=== PATIENT | female | born 1985 | race American Indian/Alaskan Native ===

== ENCOUNTER 2021-02-19 20:44 | Inpatient (IN) | payer OTHER ==
--- NOTE | 2021-02-19 22:43 | Emergency Department Report ---
ED Shortness of Breath HPI - General Chief Complaint: Dyspnea/Respdistress Stated Complaint: SOB/HEADACHE/STOMACH PAIN Time Seen by Provider: 02/19/21 22:18 Source: patient Mode of arrival: Wheelchair Limitations: No Limitations - History of Present Illness Initial Comments: Chief complaint: Shortness of breath HPI: This is a 35-year-old female with history of severe obesity BMI 71 who presents with shortness of breath for the past week. She has shortness of breath with exertion and at rest. Worse when laying flat. She does not have any new leg swelling. However she normally has leg swelling when she sits down for long periods of time. Leg swelling resolves with elevation. Patient has had dry cough. She has abdominal bloating. She denies fever. She denies headache. She denies diarrhea. She denies vomiting. She denies loss of taste or smell. She works with several persons at work. She works in customer service. She has interactions with "the public". She lives with her parents and 2 sons. She did not receive a Covid vaccine as of yet. Prior surgical history includes x2, surgery at [facility] in 2013 for bowel obstruction, tonsillectomy Complaint: shortness of breath -: Gradual, week(s) (1 week) Severity: severe Consistency: constant Improves With: oxygen Worsens With: lying flat, exertion Known History Of: other (Severe obesity BMI 71, weight 172 kg) Associated Symptoms: cough, other (Abdominal bloating, dependent leg edema) Treatments Prior to Arrival: none - Related Data Allergies Allergy/AdvReac Type Severity Reaction Status Date / Time No Known Allergies Allergy Unverified 02/19/21 22:10 ED Review of Systems ROS: Stated complaint: SOB/HEADACHE/STOMACH PAIN Other details as noted in HPI Comment: All other systems reviewed and negative Constitutional: denies: fever, malaise ENT: denies: throat pain Respiratory: cough, shortness of breath Cardiovascular: denies: chest pain Gastrointestinal: denies: nausea, vomiting, diarrhea Neurological: denies: headache ED Past Medical Hx - Past Medical History Previous Medical History?: No - Surgical History Past Surgical History?: Yes Additional Surgical History: 2 c-sections, tonsillectomy,adnoidectomy - Social History Smoking Status: Never Smoker Substance Use Type: None ED Physical Exam - General Limitations: No Limitations General appearance: alert, other (Patient appears out of breath while attempting to talk in semisupine position head of bed 45 degrees) - Head Head exam: Present: atraumatic, normocephalic - Eye Eye exam: Present: normal appearance - ENT ENT exam: Present: mucous membranes moist - Neck Neck exam: Present: normal inspection, full ROM - Respiratory Respiratory exam: Present: decreased breath sounds. Absent: wheezes, rales, rhonchi, accessory muscle use - Cardiovascular Cardiovascular Exam: Present: regular rate, normal rhythm, normal heart sounds. Absent: systolic murmur, diastolic murmur, rubs, gallop - GI/Abdominal GI/Abdominal exam: Present: soft, normal bowel sounds. Absent: distended, tenderness, guarding, rebound - Extremities Exam Extremities exam: Present: pedal edema - Neurological Exam Neurological exam: Present: alert, oriented X3 - Psychiatric Psychiatric exam: Present: normal affect, normal mood - Skin Skin exam: Present: warm, dry, intact, normal color. Absent: rash ED Course Vital Signs 02/19/21 02/20/21 21:53 01:16 Temperature 98.5 F Pulse Rate 112 H 111 H Respiratory 30 H 20 Rate Blood Pressure 208/117 Blood Pressure 197/130 [Right] O2 Sat by Pulse 89 98 Oximetry - EJ/Peripheral Line Arm L Time Out Performed: Yes Indications: nurses unable to establis Size: 20 Dressing Placed: Tegaderm Patient Tolerated Procedure: well Additional Comments: I was informed by nursing staff that venous access not obtainable. I was able to insert 20-gauge angiographic that the left wrist. ED Medical Decision Making - Lab Data Result diagrams: 02/19/21 22:19 02/19/21 22:26 - EKG Data -: EKG Interpreted by Me EKG shows normal: sinus rhythm, intervals Rate: tachycardia - EKG Data Interpretation: nonspecific ST-T wave albin 02/20/21 01:30 EKG obtained 0123 EKG interpreted by me Sinus tachycardia rate 110 bpm rightward axis diffuse T wave inversion - Radiology Data Radiology results: report reviewed, image reviewed Findings Reporting MD: Robert Florez Dictation Time: February 20, 2021 00:18 Clinical Director: Not available Salesforce Specialist Date: CHEST 1 VIEW INDICATION: chest pain. COMPARISON: None. FINDINGS: Support devices: None. Heart: Mildly enlarged. Lungs/Pleura: The exam is underpenetrated due to body habitus. This limits evaluation of the lower lungs. IMPRESSION: 1. Limited study due to underpenetration secondary to patient body habitus. Accounting for this, no acute pulmonary or pleural findings. There appears to be mild cardiomegaly - Medical Decision Making Acute respiratory failure hypoxia with severely elevated blood pressure and elevated BNP. First consideration acute heart failure: Chest radiograph poor quality due to inability to penetrate soft tissue. I personally reviewed chest radiograph. I do detect pulmonary edema pattern. Patient treated with IV furosemide and blood pressure control occluding beta-blockade and Nitropaste. COVID-19 with pneumonia also consideration. Contact droplet precautions in place. D-dimer slightly elevated: Unable to rule out pulmonary embolism without CT angiogram or nuclear medicine perfusion scan. Patient does not have venous access available for CT angiogram. Her weight exceeds the limitation of the nuclear medicine camera. I spoke directly with nuclear instructor in person Patient is admitted to the hospital service in fair condition. She is requiring 4 L nasal cannula for appropriate oxygenation. Critical care attestation.: If time is entered above; I have spent that time in minutes in the direct care of this critically ill patient, excluding procedure time. ED Disposition Clinical Impression: Acute heart failure, Acute respiratory failure with hypoxia, Suspected COVID-19 virus infection, Severe obesity Disposition: 09 OP ADMIT IP TO THIS HOSP Is pt being admited?: Yes Does the pt Need Aspirin: No Condition: Fair Referrals: PRIMARY CARE, [Primary Care Provider] - 3-5 Days
[2021-02-19 23:01] LABS: Basophils # (Auto) 0.1 K/mm3 (0.0-0.1); Basophils % (Auto) 1.5 % (0.0-1.8); Eosinophils # (Auto) 0.2 K/mm3 (0.0-0.4); Eosinophils % (Auto) 1.7 % (0.0-4.3); Lymphocytes # (Auto) 1.6 K/mm3 (1.2-5.4); Lymphocytes % (Auto) 16.4 % (13.4-35.0); Mean Corpuscular HGB Conc 28 % (30-34); Monocytes # (Auto) 1.1 K/mm3 (0.0-0.8); Monocytes % (Auto) 11.5 % (0.0-7.3); Platelet Count 364 K/mm3 (140-440); Red Blood Count 5.53 M/mm3 (3.65-5.03)
[2021-02-19 23:03] LABS: Hemoglobin 9.6 gm/dl (10.1-14.3)
[2021-02-19 23:04] LABS: Mean Corpuscular Volume 62 fl (79-97); Red Cell Distribution Width 21.4 % (13.2-15.2)
[2021-02-19 23:11] LABS: Alanine Aminotransferase 23 units/L (7-56); BUN/Creatinine Ratio 21; Blood Urea Nitrogen 17 mg/dL (7-17); Calcium 9.1 mg/dL (8.4-10.2); Hemolysis Index 3
[2021-02-20] MEDS ORDERED: FUROSEMIDE 40 MG/4 ML INJ IV ONE (01:13)
[2021-02-20] MEDS ORDERED: NITROGLYCERIN 2% OINT 1 GM TP ONE (01:14)
--- NOTE | 2021-02-20 01:23 | XRay Report ---
CHEST 1 VIEW INDICATION: chest pain. COMPARISON: None. FINDINGS: Support devices: None. Heart: Mildly enlarged. Lungs/Pleura: The exam is underpenetrated due to body habitus. This limits evaluation of the lower nitin ngs. IMPRESSION: 1. Limited study due to underpenetration secondary to patient body habitus. Accounting for this, no a cute pulmonary or pleural findings. There appears to be mild cardiomegaly. Signer Name: Robert Florez MD Signed: 02/20/2021 1:18 AM Workstation Name: [id number]
[2021-02-20 01:27] LABS: C-Reactive Protein 1.2 mg/dL (0.00-1.30)
[2021-02-20] MEDS ORDERED: ENOXAPARIN 100 MG/1 ML INJ SUB-Q ONE (01:41)
[2021-02-20] MEDS ORDERED: MORPHINE 2 MG/1 ML INJ IV PRN (02:04)
[2021-02-20] MEDS ORDERED: MAGNESIUM HYDROXIDE (MOM) ORAL LIQD UDC PO PRN (02:04)
[2021-02-20] MEDS ORDERED: ONDANSETRON 4 MG/2 ML INJ IV PRN (02:04)
[2021-02-20] MEDS: ACETAMINOPHEN 325 MG TAB PO PRN ×3 (02:42→17:49)
[2021-02-20] MEDS ORDERED: IBUPROFEN 600 MG TAB PO ONE (03:18)
[2021-02-20 05:35] LABS: Bacteria,Urine 1+ /HPF (Negative); Bilirubin,Urine NEG (Negative); Blood,Urine NEG (Negative); Color,Urine Yellow (Yellow); Urobilinogen,Urine < 2.0 mg/dL (<2.0)
[2021-02-20 05:37] LABS: HCG Qualitative,Urine Negative (Negative)
[2021-02-20] MEDS ORDERED: FUROSEMIDE 40 MG/4 ML INJ IV SCH (06:00)
--- NOTE | 2021-02-20 07:27 | History and Physical Report ---
History of Present Illness Date of examination: 02/20/21 Date of admission: 02/20/21 01:13 Chief complaint: Shortness of breath History of present illness: 35-year-old -Citizen Of [place] female with no significant past medical history except morbid obesity with a BMI of 79 presenting to the emergency room today complaining of shortness of breath which has been ongoing for about 1 week. Shortness of breath is said to be worse on exertion and while lying down flat. She has been having some lower extremity swelling. She denies any chest pain, no fever or chills, no headache or dizziness, no diaphoresis. Patient denies any nausea vomiting, no abdominal pain, no hematuria or dysuria. She has had some cough which is nonproductive. 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 She denies any recent travel. Denies any contact with anyone with COVID-19. Upon arrival in the emergency room today she was hypoxic with oxygen saturation of about 89% upon arrival in the emergency room. Work-up in the emergency room reveals elevated BNP, elevated D-dimer. Patient was too large for the scan machine for VQ scan and there was no adequate access to be scheduled for CT angiogram. Chest x-ray was significant for possible pulmonary edema. Patient has been admitted with respiratory failure, and hypertensive emergency and new onset CHF. She will also be ruled out for COVID-19. Past History Past Medical History: No medical history Past Surgical History: (X2), Other (Tonsillectomy, adenoidectomy) Social history: no significant social history Family history: no significant family history Medications and Allergies Allergies Allergy/AdvReac Type Severity Reaction Status Date / Time No Known Allergies Allergy Unverified 02/19/21 22:10 Active Meds: Active Medications Acetaminophen (Acetaminophen 325 Mg Tab) 650 mg PO Q4H PRN PRN Reason: Pain MILD(1-3)/Fever >100.5/LOCO Last Admin: 02/20/21 02:42 Dose: 650 mg Documented by: Furosemide (Furosemide 40 Mg/4 Ml Inj) 40 mg IV BID@0600,1800 VERONICA Magnesium Hydroxide (Magnesium Hydroxide (Mom) Oral Liqd Udc) 30 ml PO Q4H PRN PRN Reason: Constipation Morphine Sulfate (Morphine 2 Mg/1 Ml Inj) 2 mg IV Q5MIN PRN PRN Reason: Chest Pain unrelieved by NTG Ondansetron HCl (Ondansetron 4 Mg/2 Ml Inj) 4 mg IV Q8H PRN PRN Reason: Nausea And Vomiting Sodium Chloride (Sodium Chloride 0.9% 10 Ml Flush Syringe) 10 ml IV BID VERONICA Sodium Chloride (Sodium Chloride 0.9% 10 Ml Flush Syringe) 10 ml IV PRN PRN PRN Reason: LINE FLUSH Review of Systems Constitutional: no fever, no chills Ears, nose, mouth and throat: no nasal congestion, no sore throat Cardiovascular: no chest pain, no palpitations Respiratory: shortness of breath, no cough Gastrointestinal: no abdominal pain, no nausea, no vomiting, no diarrhea Genitourinary Female: no pelvic pain, no flank pain, no hematuria Musculoskeletal: no neck pain, no low back pain Integumentary: no rash, no pruritis Neurological: no headaches, no confusion Psychiatric: no anxiety, no depression, no confusion Exam - Constitutional Vitals: Temp Pulse Resp BP Pulse Ox 98.5 F 92 H 20 109/64 97 02/20/21 05:34 02/20/21 05:34 02/20/21 05:34 02/20/21 05:34 02/20/21 05:34 General appearance: Present: mild distress, obese - EENT Eyes: Present: PERRL, EOM intact. Absent: scleral icterus ENT: hearing intact, clear oral mucosa, dentition normal - Neck Neck: Present: supple, normal ROM - Respiratory Respiratory effort: normal Respiratory: bilateral: diminished - Cardiovascular Rhythm: regular Heart Sounds: Present: S1 & S2. Absent: systolic murmur, diastolic murmur - Extremities Extremities: no ischemia, pulses intact, pulses symmetrical, normal temperature, normal color, Full ROM Extremity abnormal: edema (1+ bilateral ankle edema) Peripheral Pulses: within normal limits - Abdominal General gastrointestinal: Present: soft, non-tender, non-distended, normal bowel sounds. Absent: mass - Integumentary Integumentary: Present: clear, warm, dry. Absent: rash - Musculoskeletal Musculoskeletal: strength equal bilaterally - Psychiatric Psychiatric: appropriate mood/affect, intact judgment & insight, memory intact, cooperative - Neurologic Neurologic: CNII-XII intact, no focal deficits, moves all extremities HEART Score - HEART Score Troponin: Troponin T 0.011 ng/mL (0.00-0.029) 02/19/21 22: Results - Labs CBC & Chem 7: 02/19/21 22:19 02/19/21 22: Labs: Abnormal lab results 02/19/21 02/19/21 02/19/21 Range/Units 22:19 22: 22: RBC 5.53 H (3.65-5.03) M/mm3 Hgb 9.6 L (10.1-14.3) gm/dl MCV 62 L (79-97) fl MCH 17 L (28-32) pg MCHC 28 L (30-34) % RDW 21.4 H (13.2-15.2) % [place] % (Auto) 11.5 H (0.0-7.3) % [place] # (Auto) 1.1 H (0.0-0.8) K/mm3 D-Dimer (0-234) ng/mlDDU Potassium 5.1 H (3.6-5.0) mmol/L Carbon Dioxide 35 H (22-30) mmol/L Glucose 110 H (65-100) mg/dL Lactate Dehydrogenase (91-180) units/L NT-Pro-B Natriuret Pep 2354 H (0-450) pg/mL 02/19/21 02/19/21 Range/Units 22:26 22:26 RBC (3.65-5.03) M/mm3 Hgb (10.1-14.3) gm/dl MCV (79-97) fl MCH (28-32) pg MCHC (30-34) % RDW (13.2-15.2) % [place] % (Auto) (0.0-7.3) % [place] # (Auto) (0.0-0.8) K/mm3 D-Dimer 277.95 H (0-234) ng/mlDDU Potassium (3.6-5.0) mmol/L Carbon Dioxide (22-30) mmol/L Glucose 111 H (65-100) mg/dL Lactate Dehydrogenase 343 H (91-180) units/L NT-Pro-B Natriuret Pep (0-450) pg/mL Assessment and Plan - Patient Problems (1) Acute heart failure Current Visit: Yes Status: Acute Plan to address problem: Patient admitted and placed on telemetry. We will place patient on diuretics. Will monitor inputs and outputs and also monitor daily weight. Patient will be scheduled for echocardiogram. We will place consult to cardiology for evaluation. (2) Acute respiratory failure with hypoxia Current Visit: Yes Status: Acute Plan to address problem: Possibly secondary to new onset CHF. We will keep oxygen saturation greater equal to 92%. (3) Severe obesity Current Visit: Yes Status: Acute Plan to address problem: Lifestyle modification encouraged. Dietary consult placed. (4) Suspected COVID-19 virus infection Current Visit: Yes Status: Acute Plan to address problem: Will await COVID-19 testing. Consult placed to infectious disease for evaluation. (5) DVT prophylaxis Current Visit: Yes Status: Acute Plan to address problem: Patient placed on subcutaneous Lovenox. (6) Full code status Current Visit: Yes Status: Acute Plan to address problem: Patient is a full code.
--- NOTE | 2021-02-20 07:38 | Event Note ---
This is a 35 year old female with morbid obesity with a BMI of 79 whow as admitted for complaints of shortness of breath which has been ongoing for about 1 week, worse on exertion and while lying down flat, and lower extremity swelling. She was admitted for possible new onset CHF and as a COVID 19 PUI. Code met called at ~0715 for hypoxia, reportedly she was on 3L NC and SPO2 was 85% and she was confused to current events. She was place on NRB 100% and her SpO2 increased to 100%. At the time my exam I was able to barely her air movement on auscultation however the patient SPO2 was 100%. Patient was alert and oriented to self, location, current events but stated that she did not have a bowel movement recently however per the nursing report she did have bowel movement on admission. Also per the nurse she received 40mg of lasix and has voided since. Patient was weaned to 50% Venturi mask. Stat ABG and CXR was ordered along with 3 times daily albuterol nebulizers and one-time dose of dexamethasone 6mg. Patient vital signs of the time my arrival were blood pressure of 167/108 with a heart rate of 103 and SPO2 100% on a nonrebreather 100%. Attending physician informed who will follow up with the results of the test ordered. Dr. Kimball was also updated of current events.
[2021-02-20] MEDS ORDERED: ALBUTEROL 2.5 MG/3 ML NEBU IH PRN (07:39)
[2021-02-20] MEDS ORDERED: dexAMETHasone 4 MG/ML VIAL IV ONE (07:50)
--- NOTE | 2021-02-20 08:50 | XRay Report ---
CHEST 1 VIEW 02/20/2021 8:15 AM INDICATION / CLINICAL INFORMATION: hypoxia. COMPARISON: 02/20/2021 FINDINGS: SUPPORT DEVICES: None. HEART / MEDIASTINUM: Stable. LUNGS / PLEURA: Mild hazy opacification in the right lower lung. Findings are obscured by artifact fr om generous overlying soft tissue. No pneumothorax. ADDITIONAL FINDINGS: No significant additional findings. IMPRESSION: 1. Mild hazy opacification in the right lower lung could represent aspiration or early/developing pne umonia. Recommend clinical correlation and continued follow-up/evaluation, as warranted. Signer Name: Zaheer Licea MD Signed: 02/20/2021 8:46 AM Workstation Name: [id number]
[2021-02-20] MEDS: FUROSEMIDE 40 MG/4 ML INJ IV SCH ×2 (10:10→20:25)
--- NOTE | 2021-02-20 11:02 | Consultation ---
History of Present Illness - Reason for Consult Consult date: 02/20/21 - History of Present Illness 35-year-old female past medical history morbid obesity presented to the hospital complaining of shortness of breath. Severe approximately 1 week prior to admission and is worsening since onset. She also notes it is worse with exertion and lying flat. She complains of associated lower extremity swelling. 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 She was found to be hypoxic on presentation. Afebrile since admission with a white count of 9.7. Covid test pending. Normal renal function. Pending procalcitonin. Normal inflammatory markers. Currently on rebreather. Imaging personally reviewed: Chest x-ray: Mild hazy opacification of the right lower lung. Review of systems: Deferred to reduce to the risk of transmission of COVID-19 Past History Past Medical History: No medical history Past Surgical History: (X2), Other (Tonsillectomy, adenoidectomy) Social history: no significant social history Family history: no significant family history Medications and Allergies Allergies Allergy/AdvReac Type Severity Reaction Status Date / Time No Known Allergies Allergy Unverified 02/19/21 22:10 Active Meds: Active Medications Acetaminophen (Acetaminophen 325 Mg Tab) 650 mg PO Q4H PRN PRN Reason: Pain MILD(1-3)/Fever >100.5/LOCO Last Admin: 02/20/21 09:59 Dose: 650 mg Documented by: Albuterol (Albuterol 2.5 Mg/3 Ml Nebu) 2.5 mg IH TIDRT PRN PRN Reason: Shortness Of Breath Furosemide (Furosemide 40 Mg/4 Ml Inj) 40 mg IV Q12HR@0800,2000 [facility] Last Admin: 02/20/21 10:10 Dose: 40 mg Documented by: Magnesium Hydroxide (Magnesium Hydroxide (Mom) Oral Liqd Udc) 30 ml PO Q4H PRN PRN Reason: Constipation Morphine Sulfate (Morphine 2 Mg/1 Ml Inj) 2 mg IV Q5MIN PRN PRN Reason: Chest Pain unrelieved by NTG Ondansetron HCl (Ondansetron 4 Mg/2 Ml Inj) 4 mg IV Q8H PRN PRN Reason: Nausea And Vomiting Sodium Chloride (Sodium Chloride 0.9% 10 Ml Flush Syringe) 10 ml IV BID [facility] Last Admin: 02/20/21 10:10 Dose: 10 ml Documented by: Sodium Chloride (Sodium Chloride 0.9% 10 Ml Flush Syringe) 10 ml IV PRN PRN PRN Reason: LINE FLUSH Physical Examination - Physical Exam Narrative exam: Physical exam deferred to reduce risk of transmission of COVID-19. Please refer to primary team's note. - Constitutional Vitals: Vital Signs Temp Pulse Resp BP Pulse Ox 97.5 F L 98 H 20 129/66 97 02/20/21 10:11 02/20/21 10:11 02/20/21 10:11 02/20/21 10:11 02/20/21 10:11 Temperature -Last 24 Hours Temperature 97.5 F Temperature 98.5 F Temperature 98.5 F Results - Labs CBC & Chem 7: 02/19/21 22:19 02/19/21 22:26 Labs: Abnormal lab results 02/19/21 02/19/21 02/19/21 Range/Units 22:19 22:19 22:26 RBC 5.53 H (3.65-5.03) M/mm3 Hgb 9.6 L (10.1-14.3) gm/dl MCV 62 L (79-97) fl MCH 17 L (28-32) pg MCHC 28 L (30-34) % RDW 21.4 H (13.2-15.2) % [place] % (Auto) 11.5 H (0.0-7.3) % [place] # (Auto) 1.1 H (0.0-0.8) K/mm3 D-Dimer (0-234) ng/mlDDU Potassium 5.1 H (3.6-5.0) mmol/L Carbon Dioxide 35 H (22-30) mmol/L Glucose 110 H (65-100) mg/dL POC Glucose (70-105) mg/dL Lactate Dehydrogenase (91-180) units/L NT-Pro-B Natriuret Pep 2354 H (0-450) pg/mL 02/19/21 02/19/21 02/20/21 Range/Units 22:26 22:26 07:12 RBC (3.65-5.03) M/mm3 Hgb (10.1-14.3) gm/dl MCV (79-97) fl MCH (28-32) pg MCHC (30-34) % RDW (13.2-15.2) % [place] % (Auto) (0.0-7.3) % [place] # (Auto) (0.0-0.8) K/mm3 D-Dimer 277.95 H (0-234) ng/mlDDU Potassium (3.6-5.0) mmol/L Carbon Dioxide (22-30) mmol/L Glucose 111 H (65-100) mg/dL POC Glucose 117 H (70-105) mg/dL Lactate Dehydrogenase 343 H (91-180) units/L NT-Pro-B Natriuret Pep (0-450) pg/mL Assessment and Plan Cultures: Covid PCR pending A/P: 35-year-old female past medical history morbid obesity presented with shortness of breath. #Covid PUI: Possible pneumonia in the right lung. Pending PCR. #Acute CHF: with extremity and pulmonary edema. Diuretics per primary #Morbid obesity Recs: -Follow up COVID PCR. If positive start dexamethasone and remdesivir. -Follow up procalcitonin; if positive start ceftriaxone 2g q24h and azithromycin 500mg q24h Thank you for the consult, we will continue to follow. Dr. Ovalles covering this weekend. Lasha Lowry MD [facility] O: [phone] F: [phone]
--- NOTE | 2021-02-20 12:14 | Consultation ---
History of Present Illness Consult date: 02/20/21 Requesting physician: STEPHANIE SANTOS Consult reason: congestive heart failure History of present illness: This pt is a 35 year old female with a significant hx of morbid obesity (BMI 79). Pt is previously unknown to our practice. [facility]o [facility]B, nonproductive cough, orthopnea and BLE edema x 1 week. Pt in acute respiratory distress sPO2 89 on arrival to ER. SOB is worse with exertion and supine positio n. Pt denies CP, weakness, dizziness, ABD pain, N/V/D, recent illness or exposures. BNP and Ddimer are noted to be elevated on admission. Pt is a Covid 19 PUI. CXR reviewed: Maral ARNDT. Past History Past Medical History: No medical history Past Surgical History: (X2), Other (Tonsillectomy, adenoidectomy) Social history: no significant social history Family history: no significant family history Medications and Allergies Allergies Allergy/AdvReac Type Severity Reaction Status Date / Time No Known Allergies Allergy Unverified 02/19/21 22:10 Active Meds: Active Medications Acetaminophen (Acetaminophen 325 Mg Tab) 650 mg PO Q4H PRN PRN Reason: Pain MILD(1-3)/Fever >100.5/LOCO Last Admin: 02/20/21 09:59 Dose: 650 mg Documented by: Albuterol (Albuterol 2.5 Mg/3 Ml Nebu) 2.5 mg IH TIDRT PRN PRN Reason: Shortness Of Breath Furosemide (Furosemide 40 Mg/4 Ml Inj) 40 mg IV Q12HR@0800,2000 [facility] Last Admin: 02/20/21 10:10 Dose: 40 mg Documented by: Magnesium Hydroxide (Magnesium Hydroxide (Mom) Oral Liqd Udc) 30 ml PO Q4H PRN PRN Reason: Constipation Morphine Sulfate (Morphine 2 Mg/1 Ml Inj) 2 mg IV Q5MIN PRN PRN Reason: Chest Pain unrelieved by NTG Ondansetron HCl (Ondansetron 4 Mg/2 Ml Inj) 4 mg IV Q8H PRN PRN Reason: Nausea And Vomiting Sodium Chloride (Sodium Chloride 0.9% 10 Ml Flush Syringe) 10 ml IV BID [facility] Last Admin: 02/20/21 10:10 Dose: 10 ml Documented by: Sodium Chloride (Sodium Chloride 0.9% 10 Ml Flush Syringe) 10 ml IV PRN PRN PRN Reason: LINE FLUSH Review of Systems Constitutional: no weight loss, no weight gain, no fever, no chills, no sweats Ears, nose, mouth and throat: no ear pain, no ear discharge, no nose pain, no nasal congestion, no nasal discharge Cardiovascular: orthopnea, edema, shortness of breath, dyspnea on exertion, no chest pain, no palpitations, no rapid/irregular heart beat, no syncope, no lightheadedness Respiratory: cough, shortness of breath, dyspnea on exertion, no cough with sputum, no hemoptysis Gastrointestinal: no abdominal pain, no nausea, no vomiting, no diarrhea Genitourinary Female: no pelvic pain, no flank pain Musculoskeletal: no neck stiffness, no neck pain, no shooting arm pain, no arm numbness/tingling, no low back pain, no shooting leg pain Integumentary: no rash, no pruritis, no redness, no sores, no wounds Neurological: no head injury, no paralysis, no weakness, no parathesias, no numbness, no tingling, no seizures, no syncope Psychiatric: no anxiety Endocrine: no cold intolerance, no heat intolerance Hematologic/Lymphatic: no easy bruising, no easy bleeding Allergic/Immunologic: no urticaria Physical Examination Last Vital Signs Temp 97.5 F L 02/20/21 10:11 Pulse 98 H 02/20/21 10:11 Resp 20 02/20/21 10:11 BP 129/66 02/20/21 10:11 Pulse Ox 97 02/20/21 10:11 General appearance: no acute distress HEENT: Positive: PERRL, Normocephaly, Mucus Membranes Moist Neck: Positive: neck supple, trachea midline Cardiac: Positive: Reg Rate and Rhythm, S1/S2 Lungs: Positive: Decreased Breath Sounds Neuro: Positive: Grossly Intact Abdomen: Positive: Unremarkable, Soft Skin: Negative: Rash, Wound Musculoskeletal: No Pain Extremities: Present: upper extr. pulses, lower extr. pulses, +2 Edema Results 02/19/21 22:19 02/19/21 22:26 Cardiac Enzymes 02/19/21 02/19/21 Range/Units 22:19 22:26 AST 21 (5-40) units/L Lactate Dehydrogenase 343 H (91-180) units/L CBC 02/19/21 Range/Units 22:19 WBC 9.7 (4.5-11.0) K/mm3 RBC 5.53 H (3.65-5.03) M/mm3 Hgb 9.6 L (10.1-14.3) gm/dl Hct 34.0 (30.3-42.9) % Plt Count 364 (140-440) K/mm3 Lymph # (Auto) 1.6 (1.2-5.4) K/mm3 [place] # (Auto) 1.1 H (0.0-0.8) K/mm3 Eos # (Auto) 0.2 (0.0-0.4) K/mm3 Baso # (Auto) 0.1 (0.0-0.1) K/mm3 Comprehensive Metabolic Panel 02/19/21 02/19/21 Range/Units 22:19 22:26 Sodium 143 (137-145) mmol/L Potassium 5.1 H (3.6-5.0) mmol/L Chloride 100.6 (98-107) mmol/L Carbon Dioxide 35 H (22-30) mmol/L BUN 17 (7-17) mg/dL Creatinine 0.8 (0.6-1.2) mg/dL Glucose 110 H 111 H (65-100) mg/dL Calcium 9.1 (8.4-10.2) mg/dL AST 21 (5-40) units/L ALT 23 (7-56) units/L Alkaline Phosphatase 79 (35-129) units/L Total Protein 6.9 (6.3-8.2) g/dL Albumin 4.0 (3.9-5) g/dL - Imaging and Cardiology Echo: pending EKG: report reviewed, image reviewed EKG interpretations - Telemetry EKG Rhythm: Sinus Rhythm - EKG Sinus rhythms and dysrhythmias: sinus tachycardia Assessment and Plan This pt is a 35 year old female with a significant hx of morbid obesity (BMI 79). Pt is previously unknown to our practice. [facility]/o [facility]B, nonproductive cough, orthopnea and BLE edema x 1 week. Pt in acute respiratory distress sPO2 89 on arrival to ER. SOB is worse with exertion and supine position. Pt denies CP, weakness, dizziness, ABD pain, N/V/D, recent illness or exposures. BNP and Ddimer are noted to be elevated on admission. Pt is a Covid 19 PUI. CXR reviewed: Maral MA (02/20/2021) Tele reviewed: SR 100. 12 Lead reviewed: ST 110 no STEMI. Troponin is negative x 1. Repeat troponin. Ddimer noted to be mildly elevated on admission. Pt cannot undergo CTA or VQ scan dues to body habitus and table weight limits. Further assessment per primary team. Echo pending. Code Met at 7:15am this morning: pt found sPO2 85% and confused to events when roused. Suspect STEPHEN. Pt may benefit from CPAP Therapy. CPAP QHS ordered. Agree with IV duiresis. Continue Lasix 40mg IV BID. Strict I/Os. Repeat BMP in am. Optimize HR and BP. Initiate Coreg 6.25 PO BID. Further recs pending echo results. Will follow. This pt was seen in conjunction with Dr Ballard who agrees with this assessment and plan of care. - Patient Problems (1) Acute respiratory failure with hypoxia Current Visit: Yes Status: Acute (2) Acute heart failure Current Visit: Yes Status: Acute (3) Suspected COVID-19 virus infection Current Visit: Yes Status: Acute (4) STEPHEN (obstructive sleep apnea) Current Visit: Yes Status: Chronic (5) Severe obesity Current Visit: Yes Status: Chronic
--- NOTE | 2021-02-20 12:37 | Consultation ---
History of Present Illness Consult date: 02/20/21 Requesting physician: STEPHANIE SANTOS Reason for consult: hypoxemia History of present illness: 35 y/o morbidly obese female admitted with shortness of breath and hypoxemia. Found to be 89% on ROOM air. Admitted as COVID PUI and possible new onset CHF. Had code met called this am for worsening hypoxemia. Past History Past Medical History: No medical history Past Surgical History: (X2), Other (Tonsillectomy, adenoidectomy) Social history: no significant social history Family history: no significant family history Medications and Allergies Allergies Allergy/AdvReac Type Severity Reaction Status Date / Time No Known Allergies Allergy Unverified 02/19/21 22:10 Active Meds: Active Medications Acetaminophen (Acetaminophen 325 Mg Tab) 650 mg PO Q4H PRN PRN Reason: Pain MILD(1-3)/Fever >100.5/LOCO Last Admin: 02/20/21 09:59 Dose: 650 mg Documented by: Albuterol (Albuterol 2.5 Mg/3 Ml Nebu) 2.5 mg IH TIDRT PRN PRN Reason: Shortness Of Breath Carvedilol (Carvedilol 6.25 Mg Tab) 6.25 mg PO BID [facility] Furosemide (Furosemide 40 Mg/4 Ml Inj) 40 mg IV Q12HR@0800,2000 [facility] Last Admin: 02/20/21 10:10 Dose: 40 mg Documented by: Magnesium Hydroxide (Magnesium Hydroxide (Mom) Oral Liqd Udc) 30 ml PO Q4H PRN PRN Reason: Constipation Morphine Sulfate (Morphine 2 Mg/1 Ml Inj) 2 mg IV Q5MIN PRN PRN Reason: Chest Pain unrelieved by NTG Ondansetron HCl (Ondansetron 4 Mg/2 Ml Inj) 4 mg IV Q8H PRN PRN Reason: Nausea And Vomiting Sodium Chloride (Sodium Chloride 0.9% 10 Ml Flush Syringe) 10 ml IV BID [facility] Last Admin: 02/20/21 10:10 Dose: 10 ml Documented by: Sodium Chloride (Sodium Chloride 0.9% 10 Ml Flush Syringe) 10 ml IV PRN PRN PRN Reason: LINE FLUSH Physical Examination Vital signs: Vital Signs Temp Pulse Resp BP Pulse Ox 98.5 F 112 H 30 H 208/117 89 02/19/21 21:53 02/19/21 21:53 02/19/21 21:53 02/19/21 21:53 02/19/21 21:53 Results - Laboratory Findings CBC and BMP: 02/19/21 22:19 02/19/21 22:26 PT/INR, D-dimer D-Dimer 277.95 ng/mlDDU (0-234) H 02/19/21 22:26 Abnormal lab findings: Abnormal Labs 02/19/21 02/19/21 02/19/21 22:19 22:19 22:26 RBC 5.53 H Hgb 9.6 L MCV 62 L MCH 17 L MCHC 28 L RDW 21.4 H Luce % (Auto) 11.5 H Luce # (Auto) 1.1 H D-Dimer Potassium 5.1 H Carbon Dioxide 35 H Glucose 110 H POC Glucose Lactate Dehydrogenase NT-Pro-B Natriuret Pep 2354 H 02/19/21 02/19/21 02/20/21 22:26 22:26 07:12 RBC Hgb MCV MCH MCHC RDW Luce % (Auto) Luce # (Auto) D-Dimer 277.95 H Potassium Carbon Dioxide Glucose 111 H POC Glucose 117 H Lactate Dehydrogenase 343 H NT-Pro-B Natriuret Pep - Diagnostic Findings Chest x-ray: image reviewed Assessment and Plan 35 y/o female with hypoxemia, concern for CHF and PUI for COVID 1. Agree with diuresis 2. Likely has STEPHEN and OHS, will order bipap QHS and titrate to comfort and sat >88% 3. Too large for CT to rule out PE. If doesn't improve with diuretics, may need empiric anticoagulation. Could consider echo but doubt windows will be helpful. 4. Very very guarded prognosis
--- NOTE | 2021-02-20 17:15 | Electrocardiograph Report ---
[facility] Test Date: 2021-02-20 Test Time: 01:23:25 Pat Name: LSIA RITCHIE Department: Room: A358 1 Gender: F [employer]: ADRIEN : 1985 Requested By: BART VASQUEZ Order Number: [id number] Reading MD: Melyssa Rios Measurements Intervals [place] Rate: 109 P: 67 NE: 137 QRS: 113 QRSD: 79 T: -55 QT: 345 QTc: 464 Interpretive Statements Sinus tachycardia Right axis deviation versus lead malposition Probable RVH w/ secondary repol abnormality Nonspecific T abnormalities, lateral leads No previous ECG available for comparison Electronically Signed On 02-20-2021 17:14:52 EDT by Melyssa Rios
[2021-02-20] MEDS ORDERED: hydrALAZINE 20 MG/1 ML INJ IV ONE (17:25)
--- NOTE | 2021-02-20 18:24 | Progress Note ---
Assessment and Plan Assessment and Plan - Patient Problems (1) Acute heart failure Current Visit: Yes Status: Acute Plan to address problem: EF 55 to 60 percent Cont Diuresis SOB sec to Hypoventilation (2) Acute respiratory failure with hypoxia Current Visit: Yes Status: Acute Plan to address problem: Hyoiventilation sec to Morbid obesity Pickwickian syndrome STEPHEN OHS Hypercarbia initially (3) Severe obesity Current Visit: Yes Status: Acute Plan to address problem: Lifestyle modification encouraged. Dietary consult placed. Bariatric surgery as outpatient and follow up with Dr Merino suggested Patient to consider (4) Suspected COVID-19 virus infection Current Visit: Yes Status: Acute Plan to address problem: Covid negative (5) DVT prophylaxis Current Visit: Yes Status: Acute Plan to address problem: Patient placed on subcutaneous Lovenox. (6) Full code status Current Visit: Yes Status: Acute Plan to address problem: Patient is a full code. Subjective Date of service: 02/20/21 Principal diagnosis: Acute resp failure with Hypoxia and Hypercarbia Interval history: 35-year-old -Faroese female with no significant past medical history e xcept morbid obesity with a BMI of 79 presenting to the emergency room today complaining of shortness of breath which has been ongoing for about 1 week. Shortness of breath is said to be worse on exertion and while lying down flat. She has been having some lower extremity swelling. She denies any chest pain, no fever or chills, no headache or dizziness, no diaphoresis. Patient denies any nausea vomiting, no abdominal pain, no hematuria or dysuria. She has had some cough which is nonproductive. 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 She denies any recent travel. Denies any contact with anyone with COVID-19. Upon arrival in the emergency room today she was hypoxic with oxygen saturation of about 89% upon arrival in the emergency room. Work-up in the emergency room reveals elevated BNP, elevated D-dimer. Patient was too large for the scan machine for VQ scan and there was no adequate access to be scheduled for CT angiogram. Chest x-ray was significant for possible pulmonary edema. Patient has been admitted with respiratory failure, and hypertensive emergency and new onset CHF. She will also be ruled out for COVID-19. 02/20/21 Very SOB On Bipap Hypercapneic bcoxz of noncompliance with Bipap Objective - Constitutional Vitals: Vital Signs - 12hr 02/20/21 02/20/21 02/20/21 07:13 09:41 10:11 Temperature 97.5 F L Pulse Rate 102 H 98 H Respiratory 20 Rate Blood Pressure 167/109 Blood Pressure 129/66 [Right] O2 Sat by Pulse 100 98 97 Oximetry 02/20/21 02/20/21 15:14 17:49 Temperature Pulse Rate 98 H Respiratory Rate Blood Pressure 167/109 Blood Pressure [Right] O2 Sat by Pulse 98 Oximetry General appearance: Present: severe distress, well-nourished - EENT Eyes: PERRL, EOM intact ENT: hearing intact, clear oral mucosa Ears: bilateral: normal - Neck Neck: supple, normal ROM - Respiratory Respiratory effort: normal Respiratory: bilateral: CTA - Breasts Breasts: normal - Cardiovascular Heart rate: 78 Rhythm: regular Heart Sounds: Present: S1 & S2. Absent: gallop, rub Extremities: pulses intact, No edema, normal color, Full ROM - Gastrointestinal General gastrointestinal: Present: soft, non-tender, non-distended, normal bowel sounds - Genitourinary Female genitourinary: normal - Integumentary Integumentary: clear, warm, dry - Musculoskeletal Musculoskeletal: 1, strength equal bilaterally - Neurologic Neurologic: moves all extremities - Psychiatric Psychiatric: memory intact, appropriate mood/affect, intact judgment & insight - Labs CBC & Chem 7: 02/21/21 08:14 02/24/21 05:04 Labs: Abnormal lab results 02/19/21 02/19/21 02/19/21 Range/Units 22:19 22:19 22:26 RBC 5.53 H (3.65-5.03) M/mm3 Hgb 9.6 L (10.1-14.3) gm/dl MCV 62 L (79-97) fl MCH 17 L (28-32) pg MCHC 28 L (30-34) % RDW 21.4 H (13.2-15.2) % [place] % (Auto) 11.5 H (0.0-7.3) % [place] # (Auto) 1.1 H (0.0-0.8) K/mm3 D-Dimer (0-234) ng/mlDDU Potassium 5.1 H (3.6-5.0) mmol/L Carbon Dioxide 35 H (22-30) mmol/L Glucose 110 H (65-100) mg/dL POC Glucose (70-105) mg/dL Lactate Dehydrogenase (91-180) units/L NT-Pro-B Natriuret Pep 2354 H (0-450) pg/mL 02/19/21 02/19/21 02/20/21 Range/Units 22:26 22:26 07:12 RBC (3.65-5.03) M/mm3 Hgb (10.1-14.3) gm/dl MCV (79-97) fl MCH (28-32) pg MCHC (30-34) % RDW (13.2-15.2) % [place] % (Auto) (0.0-7.3) % [place] # (Auto) (0.0-0.8) K/mm3 D-Dimer 277.95 H (0-234) ng/mlDDU Potassium (3.6-5.0) mmol/L Carbon Dioxide (22-30) mmol/L Glucose 111 H (65-100) mg/dL POC Glucose 117 H (70-105) mg/dL Lactate Dehydrogenase 343 H (91-180) units/L NT-Pro-B Natriuret Pep (0-450) pg/mL HEART Score - HEART Score Troponin: Troponin T 0.011 ng/mL (0.00-0.029) 02/19/21 22:26
[2021-02-20] MEDS: IBUPROFEN 600 MG TAB PO PRN (20:40)
[2021-02-20] MEDS: carvediloL 6.25 MG TAB PO SCH (21:54)
[2021-02-20] MEDS: hydrALAZINE 25 MG TAB PO SCH (21:55)
[2021-02-21] MEDS: hydrALAZINE 25 MG TAB PO SCH ×3 (05:32→22:30)
[2021-02-21 05:43] LABS: ABG Base Excess 8.1 mmol/L (-2.0-3.0); ABG HCO3 39.8 mmol/L (20.0-26.0); ABG PCO2 95.9 mm Hg; ABG PH 7.237 pH Units (7.350-7.450); ABG PO2 82.9 mm Hg (80.0-90.0)
[2021-02-21 05:51] LABS: ABG Methemoglobin 0.5 % (0.0-1.5)
[2021-02-21 08:42] LABS: Basophils % (Auto) 0.4 % (0.0-1.8); Eosinophils % (Auto) 0.2 % (0.0-4.3); Lymphocytes # (Auto) 1.5 K/mm3 (1.2-5.4); Lymphocytes % (Auto) 12.3 % (13.4-35.0); Mean Corpuscular HGB Conc 27 % (30-34); Monocytes # (Auto) 1.4 K/mm3 (0.0-0.8); Monocytes % (Auto) 12.3 % (0.0-7.3); Platelet Count 371 K/mm3 (140-440); Red Blood Count 6.05 M/mm3 (3.65-5.03)
[2021-02-21 08:43] LABS: Hematocrit 37.6 % (30.3-42.9); Hemoglobin 10.3 gm/dl (10.1-14.3); Mean Corpuscular Volume 62 fl (79-97); Red Cell Distribution Width 21.5 % (13.2-15.2)
[2021-02-21 08:52] LABS: INR 1.01 (0.87-1.13)
[2021-02-21 08:59] LABS: BUN/Creatinine Ratio 16; Blood Urea Nitrogen 13 mg/dL (7-17); Calcium 9.1 mg/dL (8.4-10.2); Hemolysis Index 5
[2021-02-21] MEDS: carvediloL 6.25 MG TAB PO SCH ×2 (09:39→22:29)
[2021-02-21] MEDS: FUROSEMIDE 40 MG/4 ML INJ IV SCH ×2 (09:40→22:28)
--- NOTE | 2021-02-21 10:39 | Progress Note ---
Assessment and Plan 35 aaf: 1. Acute hypercapnic hypoxemic resp failure * likely multifactorial * ?chf (unclear ef) - tte pending * ecg/trop nonacute * wiley/pickwickain 2. Morbid obesity Plan: Appreciate pulm input f/u tte cont w iv lasix dvt prophylaxis poor prognosis - Patient Problems (1) Acute heart failure Current Visit: Yes Status: Acute (2) Acute respiratory failure with hypoxia Current Visit: Yes Status: Acute (3) Suspected COVID-19 virus infection Current Visit: Yes Status: Acute (4) WILEY (obstructive sleep apnea) Current Visit: Yes Status: Chronic (5) Severe obesity Current Visit: Yes Status: Chronic Subjective Date of service: 02/21/21 Interval history: events of this am are noted Objective Vital Signs Temp Pulse Resp BP Pulse Ox 02/21/21 09:39 103 H 134/95 02/21/21 06:00 96 02/21/21 05:32 134/95 02/21/21 05:16 98.3 F 103 H 20 134/95 99 02/20/21 21:55 106 H 146/93 02/20/21 21:54 106 H 146/93 02/20/21 21:49 146/93 02/20/21 17:49 98 H 167/109 02/20/21 16:32 98.7 F 102 H 20 176/102 100 02/20/21 15:14 98 - Physical Examination HEENT: Positive: PERRL, Normocephaly, Mucus Membranes Moist Neck: Positive: neck supple, trachea midline Neuro: Positive: Grossly Intact Abdomen: Positive: Unremarkable, Soft Skin: Negative: Rash, Wound Musculoskeletal: No Pain Extremities: Present: upper extr. pulses, lower extr. pulses, +2 Edema - Labs and Meds Coagulation 02/21/21 Range/Units 08:14 PT 13.1 (12.2-14.9) Sec. INR 1.01 (0.87-1.13) Lipids 02/21/21 Range/Units 08:14 Cholesterol 147 (50-199) mg/dL CBC 02/21/21 Range/Units 08:14 WBC 11.8 H (4.5-11.0) K/mm3 RBC 6.05 H (3.65-5.03) M/mm3 Hgb 10.3 (10.1-14.3) gm/dl Hct 37.6 (30.3-42.9) % Plt Count 371 (140-440) K/mm3 Lymph # (Auto) 1.5 (1.2-5.4) K/mm3 Wilson # (Auto) 1.4 H (0.0-0.8) K/mm3 Eos # (Auto) 0.0 (0.0-0.4) K/mm3 Baso # (Auto) 0.0 (0.0-0.1) K/mm3 Comprehensive Metabolic Panel 02/21/21 Range/Units 08:14 Sodium 141 (137-145) mmol/L Potassium 5.6 H (3.6-5.0) mmol/L Chloride 98.6 (98-107) mmol/L Carbon Dioxide 35 H (22-30) mmol/L BUN 13 (7-17) mg/dL Creatinine 0.8 (0.6-1.2) mg/dL Glucose 114 H (65-100) mg/dL Calcium 9.1 (8.4-10.2) mg/dL - Imaging and Cardiology EKG: report reviewed, image reviewed Echo: pending - EKG Sinus rhythms and dysrhythmias: sinus tachycardia
[2021-02-21] MEDS: IBUPROFEN 600 MG TAB PO PRN ×2 (14:25→22:38)
[2021-02-21] MEDS: HEPARIN 5,000 UNIT/1 ML VIAL SUB-Q SCH ×2 (14:25→22:28)
--- NOTE | 2021-02-21 15:52 | Progress Note ---
Assessment and Plan Assessment and Plan - Patient Problems (1) Acute heart failure Current Visit: Yes Status: Acute Plan to address problem: EF 55 to 60 percent Cont Diuresis SOB sec to Hypoventilation (2) Acute respiratory failure with hypoxia Current Visit: Yes Status: Acute Plan to address problem: Hyoiventilation sec to Morbid obesity Pickwickian syndrome STEPHEN OHS Hypercarbia initially (3) Severe obesity Current Visit: Yes Status: Acute Plan to address problem: Lifestyle modification encouraged. Dietary consult placed. Bariatric surgery as outpatient and follow up with Dr Merino suggested Patient to consider (4) Suspected COVID-19 virus infection Current Visit: Yes Status: Acute Plan to address problem: Covid negative (5) DVT prophylaxis Current Visit: Yes Status: Acute Plan to address problem: Patient placed on subcutaneous Lovenox. (6) Full code status Current Visit: Yes Status: Acute Plan to address problem: Patient is a full code. Subjective Date of service: 02/21/21 Principal diagnosis: Acute resp failure with Hypoxia and Hypercarbia Interval history: 35-year-old -Romanian female with no significant past medical history e xcept morbid obesity with a BMI of 79 presenting to the emergency room today complaining of shortness of breath which has been ongoing for about 1 week. Shortness of breath is said to be worse on exertion and while lying down flat. She has been having some lower extremity swelling. She denies any chest pain, no fever or chills, no headache or dizziness, no diaphoresis. Patient denies any nausea vomiting, no abdominal pain, no hematuria or dysuria. She has had some cough which is nonproductive. 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 She denies any recent travel. Denies any contact with anyone with COVID-19. Upon arrival in the emergency room today she was hypoxic with oxygen saturation of about 89% upon arrival in the emergency room. Work-up in the emergency room reveals elevated BNP, elevated D-dimer. Patient was too large for the scan machine for VQ scan and there was no adequate access to be scheduled for CT angiogram. Chest x-ray was significant for possible pulmonary edema. Patient has been admitted with respiratory failure, and hypertensive emergency and new onset CHF. She will also be ruled out for COVID-19. 02/20/21 Very SOB On Bipap Hypercapneic bcoxz of noncompliance with Bipap 02/21 Some inprovement in SOB Objective - Constitutional Vitals: Vital Signs - 12hr 02/21/21 02/21/21 02/21/21 05:16 05:32 06:00 Temperature 98.3 F Pulse Rate 103 H Respiratory 20 Rate Blood Pressure 134/95 134/95 O2 Sat by Pulse 99 96 Oximetry 02/21/21 02/21/21 09:39 14:25 Temperature Pulse Rate 103 H 103 H Respiratory Rate Blood Pressure 134/95 134/95 O2 Sat by Pulse Oximetry General appearance: Present: mild distress, well-nourished - EENT Eyes: PERRL, EOM intact ENT: hearing intact, clear oral mucosa Ears: bilateral: normal - Neck Neck: supple, normal ROM - Respiratory Respiratory effort: normal Respiratory: bilateral: diminished - Breasts Breasts: normal - Cardiovascular Heart rate: 98 Rhythm: regular Heart Sounds: Present: S1 & S2. Absent: gallop, rub Extremities: pulses intact, No edema, normal color, Full ROM - Gastrointestinal General gastrointestinal: Present: soft, non-tender, non-distended, normal bowel sounds - Genitourinary Female genitourinary: normal - Integumentary Integumentary: clear, warm, dry - Musculoskeletal Musculoskeletal: 1, strength equal bilaterally - Neurologic Neurologic: moves all extremities - Psychiatric Psychiatric: memory intact, appropriate mood/affect, intact judgment & insight - Labs CBC & Chem 7: 02/21/21 08:14 02/24/21 05:04 Labs: Abnormal lab results 02/21/21 02/21/21 02/21/21 Range/Units 05:30 08:14 08:14 WBC 11.8 H (4.5-11.0) K/mm3 RBC 6.05 H (3.65-5.03) M/mm3 MCV 62 L (79-97) fl MCH 17 L (28-32) pg MCHC 27 L (30-34) % RDW 21.5 H (13.2-15.2) % Lymph % (Auto) 12.3 L (13.4-35.0) % Sherman % (Auto) 12.3 H (0.0-7.3) % [place] # (Auto) 1.4 H (0.0-0.8) K/mm3 Seg Neutrophils % 74.8 H (40.0-70.0) % Seg Neutrophils # 8.8 H (1.8-7.7) K/mm3 ABG pH 7.237 L (7.350-7.450) pH Units ABG HCO3 39.8 H (20.0-26.0) mmol/L ABG Base Excess 8.1 H (-2.0-3.0) mmol/L ABG Hemoglobin 9.6 L (12.0-16.0) gm/dl Oxyhemoglobin 92.3 L (95.0-99.0) % Potassium 5.6 H (3.6-5.0) mmol/L Carbon Dioxide 35 H (22-30) mmol/L Glucose 114 H (65-100) mg/dL POC Glucose (70-105) mg/dL 02/21/21 Range/Units 09:23 WBC (4.5-11.0) K/mm3 RBC (3.65-5.03) M/mm3 MCV (79-97) fl MCH (28-32) pg MCHC (30-34) % RDW (13.2-15.2) % Lymph % (Auto) (13.4-35.0) % Sherman % (Auto) (0.0-7.3) % [place] # (Auto) (0.0-0.8) K/mm3 Seg Neutrophils % (40.0-70.0) % Seg Neutrophils # (1.8-7.7) K/mm3 ABG pH (7.350-7.450) pH Units ABG HCO3 (20.0-26.0) mmol/L ABG Base Excess (-2.0-3.0) mmol/L ABG Hemoglobin (12.0-16.0) gm/dl Oxyhemoglobin (95.0-99.0) % Potassium (3.6-5.0) mmol/L Carbon Dioxide (22-30) mmol/L Glucose (65-100) mg/dL POC Glucose 107 H (70-105) mg/dL HEART Score - HEART Score Troponin: Troponin T < 0.010 ng/mL (0.00-0.029) 02/21/21 08:14
--- NOTE | 2021-02-21 19:08 | Progress Note ---
Assessment and Plan Imp: 1. Probable Acute CHF 2. STEPHEN/OHS/Morbid obesity 3. A/C respiratory failure, hypoxia/hypercapnea Rec: 1. Cont. diuresis 2. F/u Echo 3. BIPAP QHS and prn during day 4. Weight loss; needs outpatient bariatric surgery eval. 5. DVT PPx 6. Further plans pending clinical course Subjective Date of service: 02/21/21 Principal diagnosis: A/C respiratory failure Interval history: No events. Sleepy on BIPAP though arousable. No new complaints. Active Medications Acetaminophen (Acetaminophen 325 Mg Tab) 650 mg PO Q4H PRN PRN Reason: Pain MILD(1-3)/Fever >100.5/LOCO Last Admin: 02/20/21 17:49 Dose: 650 mg Documented by: Albuterol (Albuterol 2.5 Mg/3 Ml Nebu) 2.5 mg IH TIDRT PRN PRN Reason: Shortness Of Breath Carvedilol (Carvedilol 6.25 Mg Tab) 6.25 mg PO BID [facility] Last Admin: 02/21/21 09:39 Dose: 6.25 mg Documented by: Furosemide (Furosemide 40 Mg/4 Ml Inj) 40 mg IV Q12HR@0800,2000 [facility] Last Admin: 02/21/21 09:40 Dose: 40 mg Documented by: Heparin Sodium (Porcine) (Heparin 5,000 Unit/1 Ml Vial) 5,000 unit SUB-Q Q8HR [facility] Last Admin: 02/21/21 14:25 Dose: 5,000 unit Documented by: Hydralazine HCl (Hydralazine 25 Mg Tab) 25 mg PO Q8HR [facility] Last Admin: 02/21/21 14:25 Dose: 25 mg Documented by: Ibuprofen (Ibuprofen 600 Mg Tab) 600 mg PO Q6H PRN PRN Reason: Pain , Severe (7-10) Last Admin: 02/21/21 14:25 Dose: 600 mg Documented by: Magnesium Hydroxide (Magnesium Hydroxide (Mom) Oral Liqd Udc) 30 ml PO Q4H PRN PRN Reason: Constipation Morphine Sulfate (Morphine 2 Mg/1 Ml Inj) 2 mg IV Q5MIN PRN PRN Reason: Chest Pain unrelieved by NTG Ondansetron HCl (Ondansetron 4 Mg/2 Ml Inj) 4 mg IV Q8H PRN PRN Reason: Nausea And Vomiting Sodium Chloride (Sodium Chloride 0.9% 10 Ml Flush Syringe) 10 ml IV BID [facility] Last Admin: 02/21/21 09:40 Dose: 10 ml Documented by: Sodium Chloride (Sodium Chloride 0.9% 10 Ml Flush Syringe) 10 ml IV PRN PRN PRN Reason: LINE FLUSH Objective Vital Signs - 12hr 02/21/21 02/21/21 02/21/21 09:28 09:39 14:25 Pulse Rate 95 H 103 H 103 H Respiratory Rate Blood Pressure 155/91 134/95 134/95 O2 Sat by Pulse 93 Oximetry 02/21/21 02/21/21 16:00 18:00 Pulse Rate 99 H Respiratory 20 Rate Blood Pressure O2 Sat by Pulse 95 100 Oximetry Constitutional: no acute distress, asleep Eyes: non-icteric ENT: oropharynx moist Effort: normal Ascultation: Bilateral: diminished breath sounds Cardiovascular: regular rate and rhythm (no mrg) Gastrointestinal: normoactive bowel sounds, non-tender, non-distended Integumentary: normal Extremities: no cyanosis, pink and warm, edema Neurologic: normal mental status, non-focal exam Psychiatric: other (unable to assess) CBC and BMP: 02/21/21 08:14 02/21/21 08:14 ABG, PT/INR, D-dimer: ABG ABG pH 7.237 pH Units (7.350-7.450) L 02/21/21 05:30 ABG pCO2 95.9 mm Hg 02/21/21 05:30 ABG pO2 82.9 mm Hg (80.0-90.0) 02/21/21 05:30 ABG O2 Saturation 95.0 % (95.0-99.0) 02/21/21 05:30 PT/INR, D-dimer PT 13.1 Sec. (12.2-14.9) 02/21/21 08:14 INR 1.01 (0.87-1.13) 02/21/21 08:14 D-Dimer 277.95 ng/mlDDU (0-234) H 02/19/21 22:26 Abnormal lab findings: Abnormal Labs 02/19/21 02/19/21 02/19/21 22:19 22:19 22:26 WBC RBC 5.53 H Hgb 9.6 L MCV 62 L MCH 17 L MCHC 28 L RDW 21.4 H Lymph % (Auto) [place] % (Auto) 11.5 H [place] # (Auto) 1.1 H Seg Neutrophils % Seg Neutrophils # D-Dimer ABG pH ABG HCO3 ABG Base Excess ABG Hemoglobin Oxyhemoglobin Potassium 5.1 H Carbon Dioxide 35 H Glucose 110 H POC Glucose Lactate Dehydrogenase NT-Pro-B Natriuret Pep 2354 H 02/19/21 02/19/21 02/20/21 22:26 22:26 07:12 WBC RBC Hgb MCV MCH MCHC RDW Lymph % (Auto) [place] % (Auto) [place] # (Auto) Seg Neutrophils % Seg Neutrophils # D-Dimer 277.95 H ABG pH ABG HCO3 ABG Base Excess ABG Hemoglobin Oxyhemoglobin Potassium Carbon Dioxide Glucose 111 H POC Glucose 117 H Lactate Dehydrogenase 343 H NT-Pro-B Natriuret Pep 02/21/21 02/21/21 02/21/21 05:30 08:14 08:14 WBC 11.8 H RBC 6.05 H Hgb MCV 62 L MCH 17 L MCHC 27 L RDW 21.5 H Lymph % (Auto) 12.3 L [place] % (Auto) 12.3 H [place] # (Auto) 1.4 H Seg Neutrophils % 74.8 H Seg Neutrophils # 8.8 H D-Dimer ABG pH 7.237 L ABG HCO3 39.8 H ABG Base Excess 8.1 H ABG Hemoglobin 9.6 L Oxyhemoglobin 92.3 L Potassium 5.6 H Carbon Dioxide 35 H Glucose 114 H POC Glucose Lactate Dehydrogenase NT-Pro-B Natriuret Pep 02/21/21 09:23 WBC RBC Hgb MCV MCH MCHC RDW Lymph % (Auto) [place] % (Auto) [place] # (Auto) Seg Neutrophils % Seg Neutrophils # D-Dimer ABG pH ABG HCO3 ABG Base Excess ABG Hemoglobin Oxyhemoglobin Potassium Carbon Dioxide Glucose POC Glucose 107 H Lactate Dehydrogenase NT-Pro-B Natriuret Pep Chest x-ray: report reviewed, image reviewed
[2021-02-22] MEDS: HEPARIN 5,000 UNIT/1 ML VIAL SUB-Q SCH ×3 (06:04→22:47)
[2021-02-22] MEDS: IBUPROFEN 600 MG TAB PO PRN (06:05)
[2021-02-22] MEDS: hydrALAZINE 25 MG TAB PO SCH ×3 (06:05→22:47)
[2021-02-22] MEDS: FUROSEMIDE 40 MG/4 ML INJ IV SCH ×2 (08:07→22:47)
[2021-02-22] MEDS: carvediloL 6.25 MG TAB PO SCH (09:40)
[2021-02-22] MEDS: ACETAMINOPHEN 325 MG TAB PO PRN (10:41)
--- NOTE | 2021-02-22 11:07 | Progress Note ---
Assessment and Plan 35 aaf: 1. Acute hypercapnic hypoxemic resp failure * likely multifactorial * HFpEF * ecg/trop nonacute * wiley/pickwickain 2. Morbid obesity Plan: Appreciate pulm input cont w iv lasix double coreg clinically improving - Patient Problems (1) Acute heart failure Current Visit: Yes Status: Acute (2) Acute respiratory failure with hypoxia Current Visit: Yes Status: Acute (3) Suspected COVID-19 virus infection Current Visit: Yes Status: Acute (4) WILEY (obstructive sleep apnea) Current Visit: Yes Status: Chronic (5) Severe obesity Current Visit: Yes Status: Chronic Subjective Principal diagnosis: A/C respiratory failure Interval history: feeling a lot better Objective Vital Signs Temp Pulse Resp BP BP Pulse Ox 02/22/21 09:40 140/60 02/22/21 06:05 90 148/70 02/22/21 04:26 98.5 F 88 20 148/70 100 02/22/21 04:24 98.5 F 20 148/70 64 L 02/21/21 22:30 88 110/77 02/21/21 22:29 88 110/77 02/21/21 22:12 97.9 F 88 18 110/77 100 02/21/21 21:25 93 H 22 100 02/21/21 18:00 100 02/21/21 16:00 99 H 20 95 02/21/21 14:25 103 H 134/95 - Physical Examination HEENT: Positive: PERRL, Normocephaly, Mucus Membranes Moist Neck: Positive: neck supple, trachea midline Neuro: Positive: Grossly Intact Abdomen: Positive: Unremarkable, Soft Skin: Negative: Rash, Wound Musculoskeletal: No Pain Extremities: Present: upper extr. pulses, lower extr. pulses, +2 Edema - Imaging and Cardiology EKG: report reviewed, image reviewed Echo: pending - EKG Sinus rhythms and dysrhythmias: sinus tachycardia
--- NOTE | 2021-02-22 15:09 | Progress Note ---
Assessment and Plan Assessment and Plan - Patient Problems (1) Acute heart failure Current Visit: Yes Status: Acute Plan to address problem: EF 55 to 60 percent Cont Diuresis SOB sec to Hypoventilation (2) Acute respiratory failure with hypoxia Current Visit: Yes Status: Acute Plan to address problem: Hyoiventilation sec to Morbid obesity Pickwickian syndrome STEPHEN OHS Hypercarbia initially (3) Severe obesity Current Visit: Yes Status: Acute Plan to address problem: Lifestyle modification encouraged. Dietary consult placed. Bariatric surgery as outpatient and follow up with Dr Merino suggested Patient to consider (4) Suspected COVID-19 virus infection Current Visit: Yes Status: Acute Plan to address problem: Covid negative (5) DVT prophylaxis Current Visit: Yes Status: Acute Plan to address problem: Patient placed on subcutaneous Lovenox. (6) Full code status Current Visit: Yes Status: Acute Plan to address problem: Patient is a full code. Subjective Date of service: 02/22/21 Principal diagnosis: A/C respiratory failure Interval history: 35-year-old -[place]is[place] female with no significant past medical history except morbid obesity with a BMI of 79 presenting to the emergency room today complaining of shortness of breath which has been ongoing for about 1 week. Shortness of breath is said to be worse on exertion and while lying down flat. She has been having some lower extremity swelling. She denies any chest pain, no fever or chills, no headache or dizziness, no diaphoresis. Patient denies any nausea vomiting, no abdominal pain, no hematuria or dysuria. She has had some cough which is nonproductive. 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 She denies any recent travel. Denies any contact with anyone with COVID-19. Upon arrival in the emergency room today she was hypoxic with oxygen saturation of about 89% upon arrival in the emergency room. Work-up in the emergency room reveals elevated BNP, elevated D-dimer. Patient was too large for the scan machine for VQ scan and there was no adequate access to be scheduled for CT angiogram. Chest x-ray was significant for possible pulmonary edema. Patient has been admitted with respiratory failure, and hypertensive emergency and new onset CHF. She will also be ruled out for COVID-19. 02/20/21 Very SOB On Bipap Hypercapneic bcoxz of noncompliance with Bipap 02/21 Some inprovement in SOB 02/22 On NC o2 10 liters Lying comfortably Objective - Constitutional Vitals: Vital Signs - 12hr 02/22/21 02/22/21 02/22/21 04:24 04:26 06:05 Temperature 98.5 F 98.5 F Pulse Rate 88 90 Respiratory 20 20 Rate Blood Pressure 148/70 148/70 Blood Pressure 148/70 [Right] O2 Sat by Pulse 64 L 100 Oximetry 02/22/21 02/22/21 02/22/21 07:15 09:40 12:00 Temperature Pulse Rate Respiratory Rate Blood Pressure 140/60 Blood Pressure [Right] O2 Sat by Pulse 100 96 Oximetry 02/22/21 13:47 Temperature 98.7 F Pulse Rate 86 Respiratory 22 Rate Blood Pressure 130/63 Blood Pressure [Right] O2 Sat by Pulse 94 Oximetry General appearance: Present: no acute distress, well-nourished - EENT Eyes: PERRL, EOM intact ENT: hearing intact, clear oral mucosa Ears: bilateral: normal - Neck Neck: supple, normal ROM - Respiratory Respiratory effort: normal Respiratory: bilateral: CTA - Breasts Breasts: normal - Cardiovascular Rhythm: regular Heart Sounds: Present: S1 & S2. Absent: gallop, rub Extremities: pulses intact, No edema, normal color, Full ROM - Gastrointestinal General gastrointestinal: Present: soft, non-tender, non-distended, normal bowel sounds - Genitourinary Female genitourinary: normal - Integumentary Integumentary: clear, warm, dry - Musculoskeletal Musculoskeletal: 1, strength equal bilaterally - Neurologic Neurologic: moves all extremities - Psychiatric Psychiatric: memory intact, appropriate mood/affect, intact judgment & insight - Labs CBC & Chem 7: 02/21/21 08:14 02/24/21 05:04 HEART Score - HEART Score Troponin: Troponin T < 0.010 ng/mL (0.00-0.029) 02/21/21 08:14
[2021-02-22] MEDS: SENNOSIDES/DOCUSATE SODIUM 8.6/50 MG TAB PO PRN (17:55)
--- NOTE | 2021-02-22 22:03 | Progress Note ---
Assessment and Plan Imp: 1. Acute diastolic CHF 2. STEPHEN/OHS/Morbid obesity 3. A/C respiratory failure, hypoxia/hypercapnea 4. Pulm HTN 2/2 above; doubt WHO group 1 Rec: 1. Cont. diuresis 2. BIPAP QHS and prn during day 3. Weight loss; needs outpatient bariatric surgery eval. 4. DVT PPx 5. Outpatient sleep study Plan of care reviewed with patient, she understands/agrees Subjective Date of service: 02/22/21 Principal diagnosis: A/C respiratory failure Interval history: No events. On HFNC. Awake, alert. No complaints. Active Medications Acetaminophen (Acetaminophen 325 Mg Tab) 650 mg PO Q4H PRN PRN Reason: Pain MILD(1-3)/Fever >100.5/LOCO Last Admin: 02/22/21 10:41 Dose: 650 mg Documented by: Albuterol (Albuterol 2.5 Mg/3 Ml Nebu) 2.5 mg IH TIDRT PRN PRN Reason: Shortness Of Breath Carvedilol (Carvedilol 12.5 Mg Tab) 12.5 mg PO BID [facility] Furosemide (Furosemide 40 Mg/4 Ml Inj) 40 mg IV Q12HR@0800,2000 [facility] Last Admin: 02/22/21 08:07 Dose: 40 mg Documented by: Heparin Sodium (Porcine) (Heparin 5,000 Unit/1 Ml Vial) 5,000 unit SUB-Q Q8HR [facility] Last Admin: 02/22/21 13:48 Dose: 5,000 unit Documented by: Hydralazine HCl (Hydralazine 25 Mg Tab) 25 mg PO Q8HR [facility] Last Admin: 02/22/21 13:47 Dose: 25 mg Documented by: Ibuprofen (Ibuprofen 600 Mg Tab) 600 mg PO Q6H PRN PRN Reason: Pain , Severe (7-10) Last Admin: 02/22/21 06:05 Dose: 600 mg Documented by: Magnesium Hydroxide (Magnesium Hydroxide (Mom) Oral Liqd Udc) 30 ml PO Q4H PRN PRN Reason: Constipation Last Admin: 02/22/21 13:47 Dose: 30 ml Documented by: Morphine Sulfate (Morphine 2 Mg/1 Ml Inj) 2 mg IV Q5MIN PRN PRN Reason: Chest Pain unrelieved by NTG Ondansetron HCl (Ondansetron 4 Mg/2 Ml Inj) 4 mg IV Q8H PRN PRN Reason: Nausea And Vomiting Senna/Docusate Sodium (Sennosides/Docusate Sodium 8.6/50 Mg Tab) 2 tab PO Q12H PRN PRN Reason: Laxative Effect Last Admin: 02/22/21 17:55 Dose: 2 tab Documented by: Sodium Chloride (Sodium Chloride 0.9% 10 Ml Flush Syringe) 10 ml IV BID [facility] Last Admin: 02/22/21 10:45 Dose: 10 ml Documented by: Sodium Chloride (Sodium Chloride 0.9% 10 Ml Flush Syringe) 10 ml IV PRN PRN PRN Reason: LINE FLUSH Objective Vital Signs - 12hr 02/22/21 02/22/21 02/22/21 10:00 12:00 13:47 Temperature 98.7 F Pulse Rate 86 Respiratory 22 Rate Blood Pressure 130/63 O2 Sat by Pulse 100 96 94 Oximetry 02/22/21 02/22/21 02/22/21 16:05 17:59 20:30 Temperature 98.9 F Pulse Rate 89 Respiratory 22 Rate Blood Pressure 127/64 O2 Sat by Pulse 94 96 90 Oximetry Constitutional: no acute distress, asleep Eyes: non-icteric ENT: oropharynx moist Effort: normal Ascultation: Bilateral: diminished breath sounds Cardiovascular: regular rate and rhythm (no mrg) Gastrointestinal: normoactive bowel sounds, non-tender, non-distended Integumentary: normal Extremities: no cyanosis, pink and warm, edema Neurologic: normal mental status, non-focal exam Psychiatric: mood appropriate, affect normal CBC and BMP: 02/21/21 08:14 02/21/21 08:14 ABG, PT/INR, D-dimer: ABG ABG pH 7.237 pH Units (7.350-7.450) L 02/21/21 05:30 ABG pCO2 95.9 mm Hg 02/21/21 05:30 ABG pO2 82.9 mm Hg (80.0-90.0) 02/21/21 05:30 ABG O2 Saturation 95.0 % (95.0-99.0) 02/21/21 05:30 PT/INR, D-dimer PT 13.1 Sec. (12.2-14.9) 02/21/21 08:14 INR 1.01 (0.87-1.13) 02/21/21 08:14 D-Dimer 277.95 ng/mlDDU (0-234) H 02/19/21 22:26 Abnormal lab findings: Abnormal Labs 02/19/21 02/19/21 02/19/21 22:19 22:19 22:26 WBC RBC 5.53 H Hgb 9.6 L MCV 62 L MCH 17 L MCHC 28 L RDW 21.4 H Lymph % (Auto) [place] % (Auto) 11.5 H [place] # (Auto) 1.1 H Seg Neutrophils % Seg Neutrophils # D-Dimer ABG pH ABG HCO3 ABG Base Excess ABG Hemoglobin Oxyhemoglobin Potassium 5.1 H Carbon Dioxide 35 H Glucose 110 H POC Glucose Lactate Dehydrogenase NT-Pro-B Natriuret Pep 2354 H 02/19/21 02/19/21 02/20/21 22:26 22:26 07:12 WBC RBC Hgb MCV MCH MCHC RDW Lymph % (Auto) [place] % (Auto) [place] # (Auto) Seg Neutrophils % Seg Neutrophils # D-Dimer 277.95 H ABG pH ABG HCO3 ABG Base Excess ABG Hemoglobin Oxyhemoglobin Potassium Carbon Dioxide Glucose 111 H POC Glucose 117 H Lactate Dehydrogenase 343 H NT-Pro-B Natriuret Pep 02/21/21 02/21/21 02/21/21 05:30 08:14 08:14 WBC 11.8 H RBC 6.05 H Hgb MCV 62 L MCH 17 L MCHC 27 L RDW 21.5 H Lymph % (Auto) 12.3 L [place] % (Auto) 12.3 H [place] # (Auto) 1.4 H Seg Neutrophils % 74.8 H Seg Neutrophils # 8.8 H D-Dimer ABG pH 7.237 L ABG HCO3 39.8 H ABG Base Excess 8.1 H ABG Hemoglobin 9.6 L Oxyhemoglobin 92.3 L Potassium 5.6 H Carbon Dioxide 35 H Glucose 114 H POC Glucose Lactate Dehydrogenase NT-Pro-B Natriuret Pep 02/21/21 09:23 WBC RBC Hgb MCV MCH MCHC RDW Lymph % (Auto) [place] % (Auto) [place] # (Auto) Seg Neutrophils % Seg Neutrophils # D-Dimer ABG pH ABG HCO3 ABG Base Excess ABG Hemoglobin Oxyhemoglobin Potassium Carbon Dioxide Glucose POC Glucose 107 H Lactate Dehydrogenase NT-Pro-B Natriuret Pep Chest x-ray: report reviewed, image reviewed
[2021-02-22] MEDS: carvediloL 12.5 MG TAB PO SCH (22:47)
[2021-02-23] MEDS: hydrALAZINE 25 MG TAB PO SCH ×4 (04:47→21:44)
[2021-02-23] MEDS: HEPARIN 5,000 UNIT/1 ML VIAL SUB-Q SCH ×4 (04:47→21:44)
[2021-02-23] MEDS: ACETAMINOPHEN 325 MG TAB PO PRN (04:47)
[2021-02-23] MEDS: FUROSEMIDE 40 MG/4 ML INJ IV SCH ×2 (09:54→21:44)
[2021-02-23] MEDS: carvediloL 12.5 MG TAB PO SCH ×2 (10:35→21:44)
--- NOTE | 2021-02-23 12:32 | Progress Note ---
Assessment and Plan This pt is a 35 year old female with a significant hx of morbid obesity (BMI 79). Pt is previously unknown to our practice. Pt presented to [facility] c/o SOB, nonproductive cough, orthopnea and BLE edema x 1 week. Pt in acute respiratory distress sPO2 89 on arrival to ER. SOB is worse with exertion and supine position. Pt denies CP, weakness, dizziness, ABD pain, N/V/D, recent illness or exposures. BNP and Ddimer are noted to be elevated on admission. Pt is a Covid 19 PUI. CXR reviewed: Maral PNA. 02/23/21 Pt resting in bed. Complaining of neck discomfort and mild SOB. No CP overnight. Tele reviewed: SR 90. No events. HFpEF Echo reviewed (02/20/21): EF 55-60%. Severe LVH. Flattened septum with RV volume and pressure overload. RV moderately dilated. RA mildly dilated. Mild TR. Continue diuresis Lasix 40mg IV BID. Repeat BMP in am. Continue strict I/Os Elevated Ddimer Pt cannot undergo CTA or VQ scan due to body habitus and table weight limits. Further assessment per primary team. STEPHEN Continue CPAP QHS. Not previously on CPAP therapy or followed by pulmonology. Recommend OP f/u for management of suspected STEPHEN. HTN Continue current regimen Coreg 12.5mg PO BID, Hydralazine 25 TID. DVT Prophylaxis Continue Heparin subcutaneous inj for DVT prophylaxis. Will follow. This pt was seen in conjunction with Dr Eulalia Calvo who agrees with this assessment and plan of care. - Patient Problems (1) Acute respiratory failure with hypoxia Current Visit: Yes Status: Acute (2) (HFpEF) heart failure with preserved ejection fraction Current Visit: Yes Status: Acute (3) STEPHEN (obstructive sleep apnea) Current Visit: Yes Status: Chronic (4) Severe obesity Current Visit: Yes Status: Chronic Subjective Date of service: 02/23/21 Principal diagnosis: A/C respiratory failure Interval history: Pt resting in bed. Complaining of neck discomfort and mild SOB. No CP overnight. Tele reviewed: SR 90. No events. Objective Last Vital Signs Temp 98.2 F 02/23/21 04:30 Pulse 85 02/23/21 05:00 Resp 19 02/23/21 05:00 BP 156/81 02/23/21 04:30 Pulse Ox 96 02/23/21 11:46 - Physical Examination General: Appears Well HEENT: Positive: PERRL, Normocephaly, Mucus Membranes Moist Neck: Positive: neck supple, trachea midline Cardiac: Positive: Reg Rate and Rhythm, S1/S2 Lungs: Positive: Decreased Breath Sounds Neuro: Positive: Grossly Intact Abdomen: Positive: Unremarkable, Soft Skin: Negative: Rash, Wound Musculoskeletal: No Pain Extremities: Present: upper extr. pulses, lower extr. pulses, +2 Edema - Imaging and Cardiology EKG: report reviewed, image reviewed Echo: pending - Telemetry EKG Rhythm: Sinus Rhythm - EKG Sinus rhythms and dysrhythmias: sinus tachycardia
--- NOTE | 2021-02-23 13:14 | Progress Note ---
Assessment and Plan Cultures: Covid PCR negative A/P: 35-year-old female past medical history morbid obesity presented with shortness of breath. #Covid PUI: Negative PCR and procalcitonin. Doubt acute infection. #Acute CHF: with extremity and pulmonary edema. Diuretics per primary #Morbid obesity Recs: -procalcitonin and COVID PCR negative; resp failure likely secondary to acute CHF Thank you for the consult, we will sign off. Lasha Lowry MD [facility] ([facility]) O: [phone] F: [phone] Subjective Date of service: 02/23/21 Principal diagnosis: A/C respiratory failure Interval history: Afebrile, white count 11.8. Objective - Exam Narrative Exam: Physical exam deferred to reduce risk of transmission of COVID-19. Please refer to primary team's note. - Constitutional Vitals: Vital Signs Temp Pulse Resp BP Pulse Ox 98.2 F 85 19 156/81 96 02/23/21 04:30 02/23/21 05:00 02/23/21 05:00 02/23/21 04:30 02/23/21 11:46 Temperature -Last 24 Hours Temperature 98.2 F Temperature 99.4 F Temperature 98.9 F Temperature 98.7 F - Labs CBC & Chem 7: 02/21/21 08:14 02/21/21 08:14
--- NOTE | 2021-02-23 14:28 | Progress Note ---
Assessment and Plan 35 y/o female with hypoxemia, concern for CHF and PUI for COVID, COVID negative. 02/23/21: Continue diuresis as this has likely helped more than anything else. Needs outpatient sleep study. Weight loss is essential 1. Agree with diuresis 2. Likely has STEPHEN and OHS, will order bipap QHS and titrate to comfort and sat >88% 3. Too large for CT to rule out PE. If doesn't improve with diuretics, may need empiric anticoagulation. Could consider echo but doubt windows will be helpful. 4. Very very guarded prognosis Subjective Date of service: 02/23/21 Principal diagnosis: A/C respiratory failure Interval history: No acute events. Stable. Down to 4 liters NC. Objective Vital Signs - 12hr 02/23/21 02/23/21 02/23/21 04:30 05:00 06:00 Temperature 98.2 F Pulse Rate 80 85 Respiratory 20 19 Rate Blood Pressure 156/81 O2 Sat by Pulse 100 98 95 Oximetry 02/23/21 02/23/21 02/23/21 07:10 09:24 11:46 Temperature Pulse Rate Respiratory Rate Blood Pressure O2 Sat by Pulse 100 98 96 Oximetry 02/23/21 14:00 Temperature Pulse Rate Respiratory Rate Blood Pressure O2 Sat by Pulse 97 Oximetry Constitutional: no acute distress, asleep Eyes: non-icteric ENT: oropharynx moist Effort: normal Ascultation: Bilateral: diminished breath sounds Cardiovascular: regular rate and rhythm (no mrg) Gastrointestinal: normoactive bowel sounds, non-tender, non-distended Integumentary: normal Extremities: no cyanosis, pink and warm, edema Neurologic: normal mental status, non-focal exam Psychiatric: mood appropriate, affect normal CBC and BMP: 02/21/21 08:14 02/21/21 08:14 ABG, PT/INR, D-dimer: ABG ABG pH 7.237 pH Units (7.350-7.450) L 02/21/21 05:30 ABG pCO2 95.9 mm Hg 02/21/21 05:30 ABG pO2 82.9 mm Hg (80.0-90.0) 02/21/21 05:30 ABG O2 Saturation 95.0 % (95.0-99.0) 02/21/21 05:30 PT/INR, D-dimer PT 13.1 Sec. (12.2-14.9) 02/21/21 08:14 INR 1.01 (0.87-1.13) 02/21/21 08:14 D-Dimer 277.95 ng/mlDDU (0-234) H 02/19/21 22:26 Abnormal lab findings: Abnormal Labs 02/19/21 02/19/21 02/19/21 22:19 22:19 22:26 WBC RBC 5.53 H Hgb 9.6 L MCV 62 L MCH 17 L MCHC 28 L RDW 21.4 H Lymph % (Auto) [place] % (Auto) 11.5 H [place] # (Auto) 1.1 H Seg Neutrophils % Seg Neutrophils # D-Dimer ABG pH ABG HCO3 ABG Base Excess ABG Hemoglobin Oxyhemoglobin Potassium 5.1 H Carbon Dioxide 35 H Glucose 110 H POC Glucose Lactate Dehydrogenase NT-Pro-B Natriuret Pep 2354 H 02/19/21 02/19/21 02/20/21 22:26 22:26 07:12 WBC RBC Hgb MCV MCH MCHC RDW Lymph % (Auto) [place] % (Auto) [place] # (Auto) Seg Neutrophils % Seg Neutrophils # D-Dimer 277.95 H ABG pH ABG HCO3 ABG Base Excess ABG Hemoglobin Oxyhemoglobin Potassium Carbon Dioxide Glucose 111 H POC Glucose 117 H Lactate Dehydrogenase 343 H NT-Pro-B Natriuret Pep 02/21/21 02/21/21 02/21/21 05:30 08:14 08:14 WBC 11.8 H RBC 6.05 H Hgb MCV 62 L MCH 17 L MCHC 27 L RDW 21.5 H Lymph % (Auto) 12.3 L [place] % (Auto) 12.3 H [place] # (Auto) 1.4 H Seg Neutrophils % 74.8 H Seg Neutrophils # 8.8 H D-Dimer ABG pH 7.237 L ABG HCO3 39.8 H ABG Base Excess 8.1 H ABG Hemoglobin 9.6 L Oxyhemoglobin 92.3 L Potassium 5.6 H Carbon Dioxide 35 H Glucose 114 H POC Glucose Lactate Dehydrogenase NT-Pro-B Natriuret Pep 02/21/21 09:23 WBC RBC Hgb MCV MCH MCHC RDW Lymph % (Auto) [place] % (Auto) [place] # (Auto) Seg Neutrophils % Seg Neutrophils # D-Dimer ABG pH ABG HCO3 ABG Base Excess ABG Hemoglobin Oxyhemoglobin Potassium Carbon Dioxide Glucose POC Glucose 107 H Lactate Dehydrogenase NT-Pro-B Natriuret Pep
[2021-02-23] MEDS: IBUPROFEN 600 MG TAB PO PRN (19:45)
[2021-02-24 05:41] LABS: Blood Urea Nitrogen 16 mg/dL (7-17); Calcium 8.9 mg/dL (8.4-10.2); Hemolysis Index 46
[2021-02-24 05:45] LABS: BUN/Creatinine Ratio 23
[2021-02-24] MEDS: hydrALAZINE 25 MG TAB PO SCH ×3 (06:27→21:20)
[2021-02-24] MEDS: IBUPROFEN 600 MG TAB PO PRN (06:28)
[2021-02-24] MEDS: HEPARIN 5,000 UNIT/1 ML VIAL SUB-Q SCH ×3 (06:28→21:21)
--- NOTE | 2021-02-24 06:41 | Progress Note ---
Assessment and Plan Assessment and Plan - Patient Problems (1) Acute heart failure Current Visit: Yes Status: Acute Plan to address problem: EF 55 to 60 percent Cont Diuresis SOB sec to Hypoventilation (2) Acute respiratory failure with hypoxia Current Visit: Yes Status: Acute Plan to address problem: Hyoiventilation sec to Morbid obesity Pickwickian syndrome STEPHEN OHS Hypercarbia initially (3) Severe obesity Current Visit: Yes Status: Acute Plan to address problem: Lifestyle modification encouraged. Dietary consult placed. Bariatric surgery as outpatient and follow up with Dr Merino suggested Patient to consider (4) Suspected COVID-19 virus infection Current Visit: Yes Status: Acute Plan to address problem: Covid negative (5) DVT prophylaxis Current Visit: Yes Status: Acute Plan to address problem: Patient placed on subcutaneous Lovenox. (6) Full code status Current Visit: Yes Status: Acute Plan to address problem: Patient is a full code. Subjective Date of service: 02/23/21 Principal diagnosis: A/C respiratory failure Interval history: 35-year-old -[place]aur[place] female with no significant past medical history except morbid obesity with a BMI of 79 presenting to the emergency room today complaining of shortness of breath which has been ongoing for about 1 week. Shortness of breath is said to be worse on exertion and while lying down flat. She has been having some lower extremity swelling. She denies any chest pain, no fever or chills, no headache or dizziness, no diaphoresis. Patient denies any nausea vomiting, no abdominal pain, no hematuria or dysuria. She has had some cough which is nonproductive. 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 She denies any recent travel. Denies any contact with anyone with COVID-19. Upon arrival in the emergency room today she was hypoxic with oxygen saturation of about 89% upon arrival in the emergency room. Work-up in the emergency room reveals elevated BNP, elevated D-dimer. Patient was too large for the scan machine for VQ scan and there was no adequate access to be scheduled for CT angiogram. Chest x-ray was significant for possible pulmonary edema. Patient has been admitted with respiratory failure, and hypertensive emergency and new onset CHF. She will also be ruled out for COVID-19. 02/20/21 Very SOB On Bipap Hypercapneic bcoxz of noncompliance with Bipap 02/21 Good improvenent 02/22/21 Covid negative On 10 liters Nc o2 02/23 SOB present but better On 8 liters NC o2 Objective - Constitutional Vitals: Vital Signs - 12hr 02/23/21 02/23/21 02/23/21 18:58 19:58 23:24 Temperature 99.2 F Pulse Rate 89 Respiratory 18 Rate Blood Pressure 132/67 O2 Sat by Pulse 100 98 96 Oximetry 02/23/21 02/24/21 23:43 03:25 Temperature 98.1 F 98.5 F Pulse Rate 79 80 Respiratory 18 18 Rate Blood Pressure 126/61 124/64 O2 Sat by Pulse 100 76 L Oximetry General appearance: Present: mild distress, well-nourished - EENT Eyes: PERRL, EOM intact ENT: hearing intact, clear oral mucosa Ears: bilateral: normal - Neck Neck: supple, normal ROM - Respiratory Respiratory effort: normal Respiratory: bilateral: diminished - Breasts Breasts: normal - Cardiovascular Heart rate: 78 Rhythm: regular Heart Sounds: Present: S1 & S2. Absent: gallop, rub Extremities: pulses intact, No edema, normal color, Full ROM - Gastrointestinal General gastrointestinal: Present: soft, non-tender, non-distended, normal bowel sounds - Genitourinary Female genitourinary: normal - Integumentary Integumentary: clear, warm, dry - Musculoskeletal Musculoskeletal: 1, strength equal bilaterally - Neurologic Neurologic: moves all extremities - Psychiatric Psychiatric: memory intact, appropriate mood/affect, intact judgment & insight - Labs CBC & Chem 7: 02/21/21 08:14 02/24/21 05:04 Labs: Abnormal lab results 02/24/21 Range/Units 05:04 Chloride 90.6 L (98-107) mmol/L Carbon Dioxide 44 H* D (22-30) mmol/L HEART Score - HEART Score Troponin: Troponin T < 0.010 ng/mL (0.00-0.029) 02/21/21 08:14
[2021-02-24] MEDS: carvediloL 12.5 MG TAB PO SCH ×2 (09:42→21:20)
[2021-02-24] MEDS: FUROSEMIDE 40 MG/4 ML INJ IV SCH ×2 (09:42→21:21)
--- NOTE | 2021-02-24 09:49 | Progress Note ---
Assessment and Plan 35 y/o female with hypoxemia, concern for CHF and PUI for COVID, COVID negative. 02/24/21: Most likely patient will need home O2 that she should wear 30/05. needs outpatient sleep study but with lack of funding, not sure if this will hap pen. elevated CO2 levels are likely from chronic CO2 retention plus diuresis. Patient likely lives with a CO2 in the 70's Her ABG on room air on 02/21 showed a good PaO2 so continued diuresis may get her to the point that she does not need home O2. Weight loss is needed. 02/23/21: Continue diuresis as this has likely helped more than anything else. Needs outpatient sleep study. Weight loss is essential 1. Agree with diuresis 2. Likely has STEPHEN and OHS, will order bipap QHS and titrate to comfort and sat >88% 3. Too large for CT to rule out PE. If doesn't improve with diuretics, may n eed empiric anticoagulation. Could consider echo but doubt windows will be helpful. 4. Very very guarded prognosis Subjective Date of service: 02/24/21 Principal diagnosis: A/C respiratory failure Interval history: no acute events. Objective Vital Signs - 12hr 02/23/21 02/23/21 02/24/21 23:24 23:43 03:25 Temperature 98.1 F 98.5 F Pulse Rate 79 80 Respiratory 18 18 Rate Blood Pressure 126/61 124/64 O2 Sat by Pulse 96 100 76 L Oximetry Constitutional: no acute distress, asleep Eyes: non-icteric ENT: oropharynx moist Effort: normal Ascultation: Bilateral: diminished breath sounds Cardiovascular: regular rate and rhythm (no mrg) Gastrointestinal: normoactive bowel sounds, non-tender, non-distended Integumentary: normal Extremities: no cyanosis, pink and warm, edema Neurologic: normal mental status, non-focal exam Psychiatric: mood appropriate, affect normal CBC and BMP: 02/21/21 08:14 02/24/21 05:04 ABG, PT/INR, D-dimer: ABG ABG pH 7.237 pH Units (7.350-7.450) L 02/21/21 05:30 ABG pCO2 95.9 mm Hg 02/21/21 05:30 ABG pO2 82.9 mm Hg (80.0-90.0) 02/21/21 05:30 ABG O2 Saturation 95.0 % (95.0-99.0) 02/21/21 05:30 PT/INR, D-dimer PT 13.1 Sec. (12.2-14.9) 02/21/21 08:14 INR 1.01 (0.87-1.13) 02/21/21 08:14 D-Dimer 277.95 ng/mlDDU (0-234) H 02/19/21 22:26 Abnormal lab findings: Abnormal Labs 02/19/21 02/19/21 02/19/21 22:19 22:19 22:26 WBC RBC 5.53 H Hgb 9.6 L MCV 62 L MCH 17 L MCHC 28 L RDW 21.4 H Lymph % (Auto) [place] % (Auto) 11.5 H [place] # (Auto) 1.1 H Seg Neutrophils % Seg Neutrophils # D-Dimer ABG pH ABG HCO3 ABG Base Excess ABG Hemoglobin Oxyhemoglobin Potassium 5.1 H Chloride Carbon Dioxide 35 H Glucose 110 H POC Glucose Lactate Dehydrogenase NT-Pro-B Natriuret Pep 2354 H 02/19/21 02/19/21 02/20/21 22:26 22:26 07:12 WBC RBC Hgb MCV MCH MCHC RDW Lymph % (Auto) [place] % (Auto) [place] # (Auto) Seg Neutrophils % Seg Neutrophils # D-Dimer 277.95 H ABG pH ABG HCO3 ABG Base Excess ABG Hemoglobin Oxyhemoglobin Potassium Chloride Carbon Dioxide Glucose 111 H POC Glucose 117 H Lactate Dehydrogenase 343 H NT-Pro-B Natriuret Pep 02/21/21 02/21/21 02/21/21 05:30 08:14 08:14 WBC 11.8 H RBC 6.05 H Hgb MCV 62 L MCH 17 L MCHC 27 L RDW 21.5 H Lymph % (Auto) 12.3 L [place] % (Auto) 12.3 H [place] # (Auto) 1.4 H Seg Neutrophils % 74.8 H Seg Neutrophils # 8.8 H D-Dimer ABG pH 7.237 L ABG HCO3 39.8 H ABG Base Excess 8.1 H ABG Hemoglobin 9.6 L Oxyhemoglobin 92.3 L Potassium 5.6 H Chloride Carbon Dioxide 35 H Glucose 114 H POC Glucose Lactate Dehydrogenase NT-Pro-B Natriuret Pep 02/21/21 02/24/21 09:23 05:04 WBC RBC Hgb MCV MCH MCHC RDW Lymph % (Auto) [place] % (Auto) [place] # (Auto) Seg Neutrophils % Seg Neutrophils # D-Dimer ABG pH ABG HCO3 ABG Base Excess ABG Hemoglobin Oxyhemoglobin Potassium Chloride 90.6 L Carbon Dioxide 44 H* D Glucose POC Glucose 107 H Lactate Dehydrogenase NT-Pro-B Natriuret Pep
--- NOTE | 2021-02-24 10:36 | Progress Note ---
Assessment and Plan This pt is a 35 year old female with a significant hx of morbid obesity (BMI 79). Pt is previously unknown to our practice. Pt presented to [facility] c/o SOB, nonproductive cough, orthopnea and BLE edema x 1 week. Pt in acute respiratory distress sPO2 89 on arrival to ER. SOB is worse with exertion and supine position. Pt denies CP, weakness, dizziness, ABD pain, N/V/D, recent illness or exposures. BNP and Ddimer are noted to be elevated on admission. Pt is a Covid 19 PUI. CXR reviewed: Maral PNA. 02/24/21 Pt resting comfortably in bed. Denies CP, CASIMIRO overnight. Pt feels much better and is asking when she can be discharged. Hypoxic event noted 3am overnight: pt sleeping without CPAP or O2, tele reviewed SR. Discussed importance of Cpap compliance and [facility]p outpatient pulmonology f/u regarding suspected STEPHEN. Tele reviewed: SR 89. No cardiac events. HFpEF Echo reviewed (02/20/21): EF 55-60%. Severe LVH. Flattened septum with RV volume and pressure overload. RV moderately dilated. RA mildly dilated. Mild TR. Continue diuresis Lasix 40mg IV BID. Repeat BMP in am. Continue strict I/Os Acute Resp Failure Pt is on NC 2lpm. She is not on home O2. Wean as tolerated. Elevated Ddimer Pt cannot undergo CTA or VQ scan due to body habitus and table weight limits. Further assessment per primary team. STEPHEN Continue CPAP QHS. Hypoxic event noted 3am overnight: pt sleeping without CPAP or O2, tele reviewed SR. Discussed importance of Cpap compliance and [facility] outpatient Not previously on CPAP therapy or followed by pulmonology. Recommend OP f/u for management of suspected STEPHEN. HTN Continue current regimen Coreg 12.5mg PO BID, Hydralazine 25 TID. DVT Prophylaxis Continue Heparin subcutaneous inj for DVT prophylaxis. Will follow. This pt was seen in conjunction with Dr Eulalia Calvo who agrees with this assessment and plan of care. - Patient Problems (1) Acute respiratory failure with hypoxia Current Visit: Yes Status: Acute (2) (HFpEF) heart failure with preserved ejection fraction Current Visit: Yes Status: Acute (3) STEPHEN (obstructive sleep apnea) Current Visit: Yes Status: Chronic (4) Severe obesity Current Visit: Yes Status: Chronic Subjective Date of service: 02/24/21 Principal diagnosis: A/C respiratory failure Interval history: Pt resting comfortably in bed. Denies CP, CASIMIRO overnight. Pt feels much better and is asking when she can be discharged. Hypoxic event noted 3am overnight: pt sleeping without CPAP or O2, tele reviewed SR. Discussed importance of Cpap compliance and usp outpatient pulmonology f/u regarding suspected STEPHEN. Tele reviewed: SR 89. No cardiac events. Objective Last Vital Signs Temp 98.5 F 02/24/21 03:25 Pulse 85 02/24/21 10:24 Resp 18 02/24/21 03:25 BP 129/75 02/24/21 10:24 Pulse Ox 76 L 02/24/21 03:25 - Physical Examination General: Appears Well HEENT: Positive: PERRL, Normocephaly, Mucus Membranes Moist Neck: Positive: neck supple, trachea midline Cardiac: Positive: Reg Rate and Rhythm, S1/S2 Lungs: Positive: Normal Exam Neuro: Positive: Grossly Intact Abdomen: Positive: Unremarkable, Soft Skin: Negative: Rash, Wound Musculoskeletal: No Pain Extremities: Present: upper extr. pulses, lower extr. pulses, +1 Edema - Labs and Meds Comprehensive Metabolic Panel 02/24/21 Range/Units 05:04 Sodium 137 (137-145) mmol/L Potassium 4.8 (3.6-5.0) mmol/L Chloride 90.6 L (98-107) mmol/L Carbon Dioxide 44 H* D (22-30) mmol/L BUN 16 (7-17) mg/dL Creatinine 0.7 (0.6-1.2) mg/dL Glucose 99 (65-100) mg/dL Calcium 8.9 (8.4-10.2) mg/dL - Imaging and Cardiology EKG: report reviewed, image reviewed Echo: report reviewed (Echo reviewed (02/20/21): EF 55-60%. Severe LVH. Flattened septum with RV volume and pressure overload. RV moderately dilated. RA mildly dilated. ) - EKG Sinus rhythms and dysrhythmias: sinus tachycardia
--- NOTE | 2021-02-24 11:02 | Progress Note ---
Assessment and Plan Assessment and plan: -- Acute heart failure/diastolic CHF Current Visit: Yes Status: Acute EF 55 to 60 percent, Cont Diuresis Input output monitoring, low-sodium, fluid restriction strongly advised to comply with medications --Acute respiratory failure with hypoxia Current Visit: Yes Status: Acute Hyoiventilation sec to Morbid obesity Pickwickian syndrome STEPHEN, OHS, Oxygen titrate O2 sats to more than 90% CPAP/BiPAP at night and as needed during daytime Patient need outpatient sleep studies, at [employer] --Morbid obesity; BMI 79.2 Current Visit: Yes Status: Acute Lifestyle modification encouraged. Dietary modification Exercise as tolerated and weight reduction when medically stable Bariatric surgery as outpatient and follow up with Dr Merino suggested --PUI suspected /COVID-19 test negative Current Visit: Yes Status: Acute Covid negative --DVT prophylaxis Current Visit: Yes Status: Acute Patient placed on subcutaneous Lovenox. --Full code status Current Visit: Yes Status: Acute Patient is a full code. We will closely monitor the patient and adjust management as needed Plan of care reviewed with the patient and her nurse She has some questions answered all of them Brief history: 35-year-old -Gabonese female with no significant past medical history except morbid obesity with a BMI of 79 presenting to the emergency room today complaining of shortness of breath which has been ongoing for about 1 week. Shortness of breath is said to be worse on exertion and while lying down flat. She has been having some lower extremity swelling. She denies any chest pain, no fever or chills, no headache or dizziness, no diaphoresis. Patient denies any nausea vomiting, no abdominal pain, no hematuria or dysuria. She has had some cough which is nonproductive. 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 She denies any recent travel. Denies any contact with anyone with COVID-19. Upon arrival in the emergency room today she was hypoxic with oxygen saturation of about 89% upon arrival in the emergency room. Work-up in the emergency room reveals elevated BNP, elevated D-dimer. Patient was too large for the scan machine for VQ scan and there was no adequate access to be scheduled for CT angiogram. Chest x-ray was significant for possible pulmonary edema. Patient has been admitted with respiratory failure, and hypertensive emergency and new onset CHF. She will also be ruled out for COVID-19. 02/20/21 acute respiratory failure, On Bipap Hypercapneic bcoxz of noncompliance with Bipap 02/21; mild improvement 02/22/21;Covid negative,On 10 liters Nc o2 02/23;SOB present but better, On 8 liters NC o2 02/24; patient needs outpatient sleep study, PFTs upon discharge Also needs bariatric surgical evaluation for weight reduction program Home oxygen evaluation, home CPAP BiPAP evaluation prior to discharge History Interval history: I have seen and examined the patient at the bedside Patient's chart and medications reviewed Patient is morbidly obese, in mild distress Vital signs noted Hospitalist Physical - Constitutional Vitals: Temp Pulse Resp BP Pulse Ox 98.5 F 85 18 129/75 76 L 02/24/21 03:25 02/24/21 10:24 02/24/21 03:25 02/24/21 10:24 02/24/21 03:25 General appearance: Present: no acute distress, well-nourished - EENT Eyes: Present: PERRL, EOM intact - Neck Neck: Present: supple, normal ROM - Respiratory Respiratory effort: normal Respiratory: bilateral: diminished, rhonchi, negative: rales, wheezing - Cardiovascular Rhythm: regular Heart Sounds: Present: S1 & S2 - Extremities Extremities: no ischemia, No edema - Abdominal General gastrointestinal: soft, non-tender, non-distended, normal bowel sounds - Integumentary Integumentary: Present: clear, warm - Psychiatric Psychiatric: appropriate mood/affect, cooperative - Neurologic Neurologic: CNII-XII intact, moves all extremities HEART Score - HEART Score Troponin: Troponin T < 0.010 ng/mL (0.00-0.029) 02/21/21 08:14 Results - Labs CBC & Chem 7: 02/21/21 08:14 02/24/21 05:04 Labs: Laboratory Last Values WBC 11.8 K/mm3 (4.5-11.0) H 02/21/21 08:14 RBC 6.05 M/mm3 (3.65-5.03) H 02/21/21 08:14 Hgb 10.3 gm/dl (10.1-14.3) 02/21/21 08:14 Hct 37.6 % (30.3-42.9) 02/21/21 08:14 MCV 62 fl (79-97) L 02/21/21 08:14 MCH 17 pg (28-32) L 02/21/21 08:14 MCHC 27 % (30-34) L 02/21/21 08:14 RDW 21.5 % (13.2-15.2) H 02/21/21 08:14 Plt Count 371 K/mm3 (140-440) 02/21/21 08:14 Lymph % (Auto) 12.3 % (13.4-35.0) L 02/21/21 08:14 [place] % (Auto) 12.3 % (0.0-7.3) H 02/21/21 08:14 Eos % (Auto) 0.2 % (0.0-4.3) 02/21/21 08:14 Baso % (Auto) 0.4 % (0.0-1.8) 02/21/21 08:14 Lymph # (Auto) 1.5 K/mm3 (1.2-5.4) 02/21/21 08:14 [place] # (Auto) 1.4 K/mm3 (0.0-0.8) H 02/21/21 08:14 Eos # (Auto) 0.0 K/mm3 (0.0-0.4) 02/21/21 08:14 Baso # (Auto) 0.0 K/mm3 (0.0-0.1) 02/21/21 08:14 Seg Neutrophils % 74.8 % (40.0-70.0) H 02/21/21 08:14 Seg Neutrophils # 8.8 K/mm3 (1.8-7.7) H 02/21/21 08:14 PT 13.1 Sec. (12.2-14.9) 02/21/21 08:14 INR 1.01 (0.87-1.13) 02/21/21 08:14 D-Dimer 277.95 ng/mlDDU (0-234) H 02/19/21 22:26 ABG pH 7.237 pH Units (7.350-7.450) L 02/21/21 05:30 ABG pCO2 95.9 mm Hg 02/21/21 05:30 ABG pO2 82.9 mm Hg (80.0-90.0) 02/21/21 05:30 ABG HCO3 39.8 mmol/L (20.0-26.0) H 02/21/21 05:30 ABG O2 Saturation 95.0 % (95.0-99.0) 02/21/21 05:30 ABG O2 Content 19.9 (0.0-44) 02/21/21 05:30 ABG Base Excess 8.1 mmol/L (-2.0-3.0) H 02/21/21 05:30 ABG Hemoglobin 9.6 gm/dl (12.0-16.0) L 02/21/21 05:30 ABG Carboxyhemoglobin 2.3 % (0.0-5.0) 02/21/21 05:30 ABG Methemoglobin 0.5 % (0.0-1.5) 02/21/21 05:30 Oxyhemoglobin 92.3 % (95.0-99.0) L 02/21/21 05:30 FiO2 21 % 02/21/21 05:30 Sodium 137 mmol/L (137-145) 02/24/21 05:04 Potassium 4.8 mmol/L (3.6-5.0) 02/24/21 05:04 Chloride 90.6 mmol/L (98-107) L 02/24/21 05:04 Carbon Dioxide 44 mmol/L (22-30) H* D 02/24/21 05:04 Anion Gap 7 mmol/L 02/24/21 05:04 BUN 16 mg/dL (7-17) 02/24/21 05:04 Creatinine 0.7 mg/dL (0.6-1.2) 02/24/21 05:04 Estimated GFR > 60 ml/min 02/24/21 05:04 BUN/Creatinine Ratio 23 % 02/24/21 05:04 Glucose 99 mg/dL (65-100) 02/24/21 05:04 POC Glucose 107 mg/dL (70-105) H 02/21/21 09:23 Hemoglobin A1c 5.6 % (4-6) 02/21/21 08:14 Calcium 8.9 mg/dL (8.4-10.2) 02/24/21 05:04 Ferritin 11.9 ng/mL (10.0-200.0) 02/19/21 22:26 Total Bilirubin 0.90 mg/dL (0.1-1.2) 02/19/21 22:19 AST 21 units/L (5-40) 02/19/21 22:19 ALT 23 units/L (7-56) 02/19/21 22:19 Alkaline Phosphatase 79 units/L (35-129) 02/19/21 22:19 Lactate Dehydrogenase 343 units/L (91-180) H 02/19/21 22:26 Troponin T < 0.010 ng/mL (0.00-0.029) 02/21/21 08:14 C-Reactive Protein 1.20 mg/dL (0.00-1.30) 02/19/21 22:26 NT-Pro-B Natriuret Pep 2354 pg/mL (0-450) H 02/19/21 22:26 Total Protein 6.9 g/dL (6.3-8.2) 02/19/21 22:19 Albumin 4.0 g/dL (3.9-5) 02/19/21 22:19 Albumin/Globulin Ratio 1.4 % 02/19/21 22:19 Cholesterol 147 mg/dL (50-199) 02/21/21 08:14 Procalcitonin < 0.05 ng/mL (<0.15) 02/19/21 22:26 Urine Color Yellow (Yellow) 02/20/21 04:31 Urine Turbidity Slightly-cloudy (Clear) 02/20/21 04:31 Urine pH 5.0 (5.0-7.0) 02/20/21 04:31 Ur Specific [place] 1.009 (1.003-1.030) 02/20/21 04:31 Urine Protein 100 mg/dl mg/dL (Negative) 02/20/21 04:31 Urine Glucose (UA) Neg mg/dL (Negative) 02/20/21 04:31 Urine Ketones Neg mg/dL (Negative) 02/20/21 04:31 Urine Blood Neg (Negative) 02/20/21 04:31 Urine Nitrite Neg (Negative) 02/20/21 04:31 Urine Bilirubin Neg (Negative) 02/20/21 04:31 Urine Urobilinogen < 2.0 mg/dL (<2.0) 02/20/21 04:31 Ur Leukocyte Esterase Neg (Negative) 02/20/21 04:31 Urine WBC (Auto) 1.0 /HPF (0.0-6.0) 02/20/21 04:31 Urine RBC (Auto) 2.0 /HPF (0.0-6.0) 02/20/21 04:31 U Epithel Cells (Auto) < 1.0 /HPF (0-13.0) 02/20/21 04:31 Urine Bacteria (Auto) 1+ /HPF (Negative) 02/20/21 04:31 Urine HCG, Qual Negative (Negative) 02/20/21 04:31 Coronavirus (PCR) Negative (Negative) 02/20/21 Unknown Amato/IV: Voiding Method External Female Catheter Active Medications - Current Medications Current Medications: Generic Name Dose Route Start Last Admin Trade Name Freq PRN Reason Stop Dose Admin Acetaminophen 650 mg 02/20/21 02:04 02/23/21 04:47 Acetaminophen 325 Mg Tab PO 650 mg Q4H PRN Administration Pain MILD(1-3)/Fever >100.5/LOCO Albuterol 2.5 mg 02/20/21 07:39 Albuterol 2.5 Mg/3 Ml Nebu IH TIDRT PRN Shortness Of Breath Carvedilol 12.5 mg 02/22/21 22:00 02/24/21 09:42 Carvedilol 12.5 Mg Tab PO 12.5 mg BID VERONICA Administration Furosemide 40 mg 02/20/21 09:00 02/24/21 09:42 Furosemide 40 Mg/4 Ml Inj IV 40 mg Q12HR@0800,2000 VERONICA Administration Heparin Sodium (Porcine) 5,000 unit 02/21/21 14:00 02/24/21 06:28 Heparin 5,000 Unit/1 Ml Vial SUB-Q 5,000 unit Q8HR VERONICA Administration Hydralazine HCl 25 mg 02/20/21 22:00 02/24/21 06:27 Hydralazine 25 Mg Tab PO 25 mg Q8HR VERONICA Administration Ibuprofen 600 mg 02/20/21 20:17 02/24/21 06:28 Ibuprofen 600 Mg Tab PO 600 mg Q6H PRN Administration Pain , Severe (7-10) Magnesium Hydroxide 30 ml 02/20/21 02:04 02/22/21 13:47 Magnesium Hydroxide (Mom) Oral Liqd Udc PO 30 ml Q4H PRN Administration Constipation Morphine Sulfate 2 mg 02/20/21 02:04 Morphine 2 Mg/1 Ml Inj IV Q5MIN PRN Chest Pain unrelieved by NTG Ondansetron HCl 4 mg 02/20/21 02:04 Ondansetron 4 Mg/2 Ml Inj IV Q8H PRN Nausea And Vomiting Senna/Docusate Sodium 2 tab 02/22/21 17:43 02/22/21 17:55 Sennosides/Docusate Sodium 8.6/50 Mg Tab PO 2 tab Q12H PRN Administration Laxative Effect Sodium Chloride 10 ml 02/20/21 10:00 02/24/21 09:47 Sodium Chloride 0.9% 10 Ml Flush Syringe IV 10 ml BID VERONICA Administration Sodium Chloride 10 ml 02/20/21 02:04 Sodium Chloride 0.9% 10 Ml Flush Syringe IV PRN PRN LINE FLUSH Nutrition/Malnutrition Assess - Dietary Evaluation Nutrition/Malnutrition Findings: Nutrition Notes Start: 02/20/21 09:01 Freq: Status: Active Protocol: Document 02/20/21 09:02 MARGIE (Rec: 02/20/21 09:03 MARGIE [id number]) Nutrition Notes Need for Assessment generated from: iso coordinator Initial or Follow up Brief Note Current Diagnosis Heart Failure Other Pertinent Diagnosis COVID PUI Current Diet Cardiac Subjective/Other Information RN screen for skin risk. Asad score 19. No wounds noted in chart. Will f/u per further consult or LOS. Nutrition Intervention Revisit per MD consult or patient Sign Off request:
[2021-02-24] MEDS: ACETAMINOPHEN 325 MG TAB PO PRN (19:58)
[2021-02-24] MEDS: SENNOSIDES/DOCUSATE SODIUM 8.6/50 MG TAB PO PRN (21:20)
[2021-02-25] MEDS: ACETAMINOPHEN 325 MG TAB PO PRN (05:09)
[2021-02-25] MEDS: HEPARIN 5,000 UNIT/1 ML VIAL SUB-Q SCH ×3 (05:10→21:45)
[2021-02-25] MEDS: hydrALAZINE 25 MG TAB PO SCH ×3 (05:10→21:45)
[2021-02-25 08:28] LABS: Blood Urea Nitrogen 15 mg/dL (7-17); Calcium 8.7 mg/dL (8.4-10.2); Hemolysis Index 10
[2021-02-25 08:40] LABS: BUN/Creatinine Ratio 25
[2021-02-25] MEDS: FUROSEMIDE 40 MG/4 ML INJ IV SCH ×2 (10:06→21:45)
[2021-02-25] MEDS: carvediloL 12.5 MG TAB PO SCH ×2 (10:18→21:45)
--- NOTE | 2021-02-25 12:28 | Progress Note ---
Assessment and Plan This pt is a 35 year old female with a significant hx of morbid obesity (BMI 79). Pt is previously unknown to our practice. Pt presented to [facility] c/o SOB, nonproductive cough, orthopnea and BLE edema x 1 week. Pt in acute respiratory distress sPO2 89 on arrival to ER. SOB is worse with exertion and supine position. Pt denies CP, weakness, dizziness, ABD pain, N/V/D, recent illness or exposures. BNP and Ddimer are noted to be elevated on admission. Pt is a Covid 19 PUI- PCR Negative. CXR reviewed: R PNA. Echo reviewed (02/20/21): EF 55-60%. Severe LVH. Flattened septum with RV volume and pressure overload. RV moderately dilated. RA mildly dilated. Mild TR. 02/25/21 Pt resting comfortably in bed. Denies CP, CASIMIRO overnight. Pt feels much better and is asking when she can be discharged. Tele reviewed: SR 85. No cardiac events. HFpEF Continue diuresis Lasix 40mg IV BID. Repeat BMP in am. Continue strict I/Os Acute Resp Failure Pt is on NC 5lpm. She is not on home O2. Wean as tolerated. Pulmonology recs: OP PFT and Sleep study for STEPHEN. may need home O2 going forward. Elevated Ddimer Pt cannot undergo CTA or VQ scan due to body habitus and table weight limits. Further assessment per primary team. STEPHEN Continue CPAP QHS. Not previously on CPAP therapy or followed by pulmonology. Recommend OP f/u for management of suspected STEPHEN. HTN Continue current regimen Coreg 12.5mg PO BID, Hydralazine 25 TID. DVT Prophylaxis Continue Heparin subcutaneous inj for DVT prophylaxis. Will follow. This pt was seen in conjunction with Dr Eulalia Calvo who agrees with this assessment and plan of care. - Patient Problems (1) Acute respiratory failure with hypoxia Current Visit: Yes Status: Acute (2) (HFpEF) heart failure with preserved ejection fraction Current Visit: Yes Status: Acute (3) STEPHEN (obstructive sleep apnea) Current Visit: Yes Status: Chronic (4) Severe obesity Current Visit: Yes Status: Chronic Subjective Date of service: 02/25/21 Principal diagnosis: A/C respiratory failure Interval history: Pt resting comfortably in bed. Denies CP, CASIMIRO overnight. Pt feels much better and is asking when she can be discharged. Tele reviewed: SR 85. No cardiac events. Objective Last Vital Signs Temp 98.1 F 02/25/21 03:56 Pulse 89 02/25/21 10:18 Resp 20 02/25/21 03:56 BP 110/57 02/25/21 10:18 Pulse Ox 99 02/25/21 08:58 - Physical Examination General: Appears Well HEENT: Positive: PERRL, Normocephaly, Mucus Membranes Moist Neck: Positive: neck supple, trachea midline Cardiac: Positive: Reg Rate and Rhythm, S1/S2 Lungs: Positive: clear to auscultation, Normal Breath Sounds Neuro: Positive: Grossly Intact Abdomen: Positive: Unremarkable, Soft Skin: Negative: Rash, Wound Musculoskeletal: No Pain Extremities: Present: upper extr. pulses, lower extr. pulses, +1 Edema - Labs and Meds Comprehensive Metabolic Panel 02/25/21 Range/Units 07:42 Sodium 140 (137-145) mmol/L Potassium 4.7 (3.6-5.0) mmol/L Chloride 92.7 L (98-107) mmol/L Carbon Dioxide 45 H* (22-30) mmol/L BUN 15 (7-17) mg/dL Creatinine 0.6 (0.6-1.2) mg/dL Glucose 100 (65-100) mg/dL Calcium 8.7 (8.4-10.2) mg/dL - Imaging and Cardiology EKG: report reviewed, image reviewed Echo: report reviewed (Echo reviewed (02/20/21): EF 55-60%. Severe LVH. Flattened septum with RV volume and pressure overload. RV moderately dilated. RA mildly dilated. ) - Telemetry EKG Rhythm: Sinus Rhythm - EKG Sinus rhythms and dysrhythmias: sinus tachycardia
--- NOTE | 2021-02-25 16:38 | Progress Note ---
Assessment and Plan 35 y/o female with hypoxemia, concern for CHF and PUI for COVID, COVID negative. 02/25/21: No new recs. Same as below 02/24/21: Most likely patient will need home O2 that she should wear 30/05. needs outpatient sleep study but with lack of funding, not sure if this will happen. elevated CO2 levels are likely from chronic CO2 retention plus diuresis. Patient likely lives with a CO2 in the 70's Her ABG on room air on 02/21 showed a good PaO2 so continued diuresis may get her to the point that she does not need home O2. Weight loss is needed. 02/23/21: Continue diuresis as this has likely helped more than anything else. Needs outpatient sleep study. Weight loss is essential 1. Agree with diuresis 2. Likely has STEPHEN and OHS, will order bipap QHS and titrate to comfort and sat >88% 3. Too large for CT to rule out PE. If doesn't improve with diuretics, may need empiric anticoagulation. Could consider echo but doubt windows will be helpful. 4. Very very guarded prognosis Subjective Date of service: 02/25/21 Principal diagnosis: A/C respiratory failure Interval history: No acute events. Stable on 4 liters. Objective Vital Signs - 12hr 02/25/21 02/25/21 08:58 10:18 Pulse Rate 89 Blood Pressure 110/57 O2 Sat by Pulse 99 Oximetry Constitutional: no acute distress, asleep Eyes: non-icteric ENT: oropharynx moist Effort: normal Ascultation: Bilateral: diminished breath sounds Cardiovascular: regular rate and rhythm (no mrg) Gastrointestinal: normoactive bowel sounds, non-tender, non-distended Integumentary: normal Extremities: no cyanosis, pink and warm, edema Neurologic: normal mental status, non-focal exam Psychiatric: mood appropriate, affect normal CBC and BMP: 02/21/21 08:14 02/25/21 07:42 ABG, PT/INR, D-dimer: ABG ABG pH 7.237 pH Units (7.350-7.450) L 02/21/21 05:30 ABG pCO2 95.9 mm Hg 02/21/21 05:30 ABG pO2 82.9 mm Hg (80.0-90.0) 02/21/21 05:30 ABG O2 Saturation 95.0 % (95.0-99.0) 02/21/21 05:30 PT/INR, D-dimer PT 13.1 Sec. (12.2-14.9) 02/21/21 08:14 INR 1.01 (0.87-1.13) 02/21/21 08:14 D-Dimer 277.95 ng/mlDDU (0-234) H 02/19/21 22:26 Abnormal lab findings: Abnormal Labs 02/19/21 02/19/21 02/19/21 22:19 22:19 22:26 WBC RBC 5.53 H Hgb 9.6 L MCV 62 L MCH 17 L MCHC 28 L RDW 21.4 H Lymph % (Auto) [place] % (Auto) 11.5 H [place] # (Auto) 1.1 H Seg Neutrophils % Seg Neutrophils # D-Dimer ABG pH ABG HCO3 ABG Base Excess ABG Hemoglobin Oxyhemoglobin Potassium 5.1 H Chloride Carbon Dioxide 35 H Glucose 110 H POC Glucose Lactate Dehydrogenase NT-Pro-B Natriuret Pep 2354 H 02/19/21 02/19/21 02/20/21 22:26 22:26 07:12 WBC RBC Hgb MCV MCH MCHC RDW Lymph % (Auto) [place] % (Auto) [place] # (Auto) Seg Neutrophils % Seg Neutrophils # D-Dimer 277.95 H ABG pH ABG HCO3 ABG Base Excess ABG Hemoglobin Oxyhemoglobin Potassium Chloride Carbon Dioxide Glucose 111 H POC Glucose 117 H Lactate Dehydrogenase 343 H NT-Pro-B Natriuret Pep 02/21/21 02/21/21 02/21/21 05:30 08:14 08:14 WBC 11.8 H RBC 6.05 H Hgb MCV 62 L MCH 17 L MCHC 27 L RDW 21.5 H Lymph % (Auto) 12.3 L [place] % (Auto) 12.3 H [place] # (Auto) 1.4 H Seg Neutrophils % 74.8 H Seg Neutrophils # 8.8 H D-Dimer ABG pH 7.237 L ABG HCO3 39.8 H ABG Base Excess 8.1 H ABG Hemoglobin 9.6 L Oxyhemoglobin 92.3 L Potassium 5.6 H Chloride Carbon Dioxide 35 H Glucose 114 H POC Glucose Lactate Dehydrogenase NT-Pro-B Natriuret Pep 02/21/21 02/24/2102/25/21 09:23 05:04 07:42 WBC RBC Hgb MCV MCH MCHC RDW Lymph % (Auto) [place] % (Auto) [place] # (Auto) Seg Neutrophils % Seg Neutrophils # D-Dimer ABG pH ABG HCO3 ABG Base Excess ABG Hemoglobin Oxyhemoglobin Potassium Chloride 90.6 L 92.7 L Carbon Dioxide 44 H* D 45 H* Glucose POC Glucose 107 H Lactate Dehydrogenase NT-Pro-B Natriuret Pep
--- NOTE | 2021-02-25 17:03 | Progress Note ---
Assessment and Plan Assessment and plan: -- Acute heart failure/diastolic CHF Current Visit: Yes Status: Acute EF 55 to 60 percent, Cont Diuresis Input output monitoring, low-sodium, fluid restriction strongly advised to comply with medications --Acute respiratory failure with hypoxia Current Visit: Yes Status: Acute Hyoiventilation sec to Morbid obesity Pickwickian syndrome STEPHEN, OHS, Oxygen titrate O2 sats to more than 90% CPAP/BiPAP at night and as needed during daytime Patient need outpatient sleep studies, at [facility] --Morbid obesity; BMI 79.2 Current Visit: Yes Status: Acute Lifestyle modification encouraged. Dietary modification Exercise as tolerated and weight reduction when medically stable Bariatric surgery as outpatient and follow up with Dr Merino suggested --PUI suspected /COVID-19 test negative Current Visit: Yes Status: Acute Covid negative --DVT prophylaxis Current Visit: Yes Status: Acute Patient placed on subcutaneous Lovenox. --Full code status Current Visit: Yes Status: Acute Patient is a full code. We will closely monitor the patient and adjust management as needed Plan of care reviewed with the patient and her nurse She has some questions answered all of them Brief history: 35-year-old -[place] female with no significant past medical history except morbid obesity with a BMI of 79 presenting to the emergency room today complaining of shortness of breath which has been ongoing for about 1 week. Shortness of breath is said to be worse on exertion and while lying down flat. She has been having some lower extremity swelling. She denies any chest pain, no fever or chills, no headache or dizziness, no diaphoresis. Patient denies any nausea vomiting, no abdominal pain, no hematuria or dysuria. She has had some cough which is nonproductive. 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 She denies any recent travel. Denies any contact with anyone with COVID-19. Upon arrival in the emergency room today she was hypoxic with oxygen saturation of about 89% upon arrival in the emergency room. Work-up in the emergency room reveals elevated BNP, elevated D-dimer. Patient was too large for the scan machine for VQ scan and there was no adequate access to be scheduled for CT angiogram. Chest x-ray was significant for possible pulmonary edema. Patient has been admitted with respiratory failure, and hypertensive emergency and new onset CHF. She will also be ruled out for COVID-19. 02/20/21 acute respiratory failure, On Bipap Hypercapneic bcoxz of noncompliance with Bipap 02/21; mild improvement 02/22/21;Covid negative,On 10 liters [place] o2 02/23;SOB present but better, On 8 liters [place] o2 02/24; patient needs outpatient sleep study, PFTs upon discharge Also needs bariatric surgical evaluation for weight reduction program Home oxygen evaluation, home CPAP BiPAP evaluation prior to discharge 02/25; home O2 evaluation, resting room air, ambulatory in the room room air O2 sats History Interval history: I have seen and examined the patient at the bedside this morning patient's chart and medications reviewed Patient feels slightly better, continues continues to have mild shortness of breath Vital signs noted Morbidly obese BMI 79.2 Hospitalist Physical - Constitutional Vitals: Temp Pulse Resp BP Pulse Ox 98.1 F 89 20 110/57 99 02/25/21 03:56 02/25/21 10:18 02/25/21 03:56 02/25/21 10:18 02/25/21 08:58 General appearance: Present: no acute distress, well-nourished, obese (Morbidly obese BMI 79.2) - EENT Eyes: Present: PERRL, EOM intact - Neck Neck: Present: supple, normal ROM - Respiratory Respiratory effort: normal Respiratory: bilateral: diminished, negative: rales, rhonchi, wheezing - Cardiovascular Rhythm: regular - Extremities Extremities: no ischemia Extremity abnormal: edema - Abdominal General gastrointestinal: soft, non-tender, non-distended, normal bowel sounds - Integumentary Integumentary: Present: clear, warm - Psychiatric Psychiatric: appropriate mood/affect, cooperative - Neurologic Neurologic: moves all extremities HEART Score - HEART Score Troponin: Troponin T < 0.010 ng/mL (0.00-0.029) 02/21/21 08:14 Results - Labs CBC & Chem 7: 02/21/21 08:14 02/25/21 07:42 Labs: Laboratory Last Values WBC 11.8 K/mm3 (4.5-11.0) H 02/21/21 08:14 RBC 6.05 M/mm3 (3.65-5.03) H 02/21/21 08:14 Hgb 10.3 gm/dl (10.1-14.3) 02/21/21 08:14 Hct 37.6 % (30.3-42.9) 02/21/21 08:14 MCV 62 fl (79-97) L 02/21/21 08:14 MCH 17 pg (28-32) L 02/21/21 08:14 MCHC 27 % (30-34) L 02/21/21 08:14 RDW 21.5 % (13.2-15.2) H 02/21/21 08:14 Plt Count 371 K/mm3 (140-440) 02/21/21 08:14 Lymph % (Auto) 12.3 % (13.4-35.0) L 02/21/21 08:14 [place] % (Auto) 12.3 % (0.0-7.3) H 02/21/21 08:14 Eos % (Auto) 0.2 % (0.0-4.3) 02/21/21 08:14 Baso % (Auto) 0.4 % (0.0-1.8) 02/21/21 08:14 Lymph # (Auto) 1.5 K/mm3 (1.2-5.4) 02/21/21 08:14 [place] # (Auto) 1.4 K/mm3 (0.0-0.8) H 02/21/21 08:14 Eos # (Auto) 0.0 K/mm3 (0.0-0.4) 02/21/21 08:14 Baso # (Auto) 0.0 K/mm3 (0.0-0.1) 02/21/21 08:14 Seg Neutrophils % 74.8 % (40.0-70.0) H 02/21/21 08:14 Seg Neutrophils # 8.8 K/mm3 (1.8-7.7) H 02/21/21 08:14 PT 13.1 Sec. (12.2-14.9) 02/21/21 08:14 INR 1.01 (0.87-1.13) 02/21/21 08:14 D-Dimer 277.95 ng/mlDDU (0-234) H 02/19/21 22:26 ABG pH 7.237 pH Units (7.350-7.450) L 02/21/21 05:30 ABG pCO2 95.9 mm Hg 02/21/21 05:30 ABG pO2 82.9 mm Hg (80.0-90.0) 02/21/21 05:30 ABG HCO3 39.8 mmol/L (20.0-26.0) H 02/21/21 05:30 ABG O2 Saturation 95.0 % (95.0-99.0) 02/21/21 05:30 ABG O2 Content 19.9 (0.0-44) 02/21/21 05:30 ABG Base Excess 8.1 mmol/L (-2.0-3.0) H 02/21/21 05:30 ABG Hemoglobin 9.6 gm/dl (12.0-16.0) L 02/21/21 05:30 ABG Carboxyhemoglobin 2.3 % (0.0-5.0) 02/21/21 05:30 ABG Methemoglobin 0.5 % (0.0-1.5) 02/21/21 05:30 Oxyhemoglobin 92.3 % (95.0-99.0) L 02/21/21 05:30 FiO2 21 % 02/21/21 05:30 Sodium 140 mmol/L (137-145) 02/25/21 07:42 Potassium 4.7 mmol/L (3.6-5.0) 02/25/21 07:42 Chloride 92.7 mmol/L (98-107) L 02/25/21 07:42 Carbon Dioxide 45 mmol/L (22-30) H* 02/25/21 07:42 Anion Gap 10 mmol/L 02/25/21 07:42 BUN 15 mg/dL (7-17) 02/25/21 07:42 Creatinine 0.6 mg/dL (0.6-1.2) 02/25/21 07:42 Estimated GFR > 60 ml/min 02/25/21 07:42 BUN/Creatinine Ratio 25 % 02/25/21 07:42 Glucose 100 mg/dL (65-100) 02/25/21 07:42 POC Glucose 107 mg/dL (70-105) H 02/21/21 09:23 Hemoglobin A1c 5.6 % (4-6) 02/21/21 08:14 Calcium 8.7 mg/dL (8.4-10.2) 02/25/21 07:42 Magnesium 2.00 mg/dL (1.7-2.3) 02/25/21 07:42 Ferritin 11.9 ng/mL (10.0-200.0) 02/19/21 22:26 Total Bilirubin 0.90 mg/dL (0.1-1.2) 02/19/21 22:19 AST 21 units/L (5-40) 02/19/21 22:19 ALT 23 units/L (7-56) 02/19/21 22:19 Alkaline Phosphatase 79 units/L (35-129) 02/19/21 22:19 Lactate Dehydrogenase 343 units/L (91-180) H 02/19/21 22:26 Troponin T < 0.010 ng/mL (0.00-0.029) 02/21/21 08:14 C-Reactive Protein 1.20 mg/dL (0.00-1.30) 02/19/21 22:26 NT-Pro-B Natriuret Pep 2354 pg/mL (0-450) H 02/19/21 22:26 Total Protein 6.9 g/dL (6.3-8.2) 02/19/21 22:19 Albumin 4.0 g/dL (3.9-5) 02/19/21 22:19 Albumin/Globulin Ratio 1.4 % 02/19/21 22:19 Cholesterol 147 mg/dL (50-199) 02/21/21 08:14 Procalcitonin < 0.05 ng/mL (<0.15) 02/19/21 22:26 Urine Color Yellow (Yellow) 02/20/21 04:31 Urine Turbidity Slightly-cloudy (Clear) 02/20/21 04:31 Urine pH 5.0 (5.0-7.0) 02/20/21 04:31 Ur Specific [place] 1.009 (1.003-1.030) 02/20/21 04:31 Urine Protein 100 mg/dl mg/dL (Negative) 02/20/21 04:31 Urine Glucose (UA) Neg mg/dL (Negative) 02/20/21 04:31 Urine Ketones Neg mg/dL (Negative) 02/20/21 04:31 Urine Blood Neg (Negative) 02/20/21 04:31 Urine Nitrite Neg (Negative) 02/20/21 04:31 Urine Bilirubin Neg (Negative) 02/20/21 04:31 Urine Urobilinogen < 2.0 mg/dL (<2.0) 02/20/21 04:31 Ur Leukocyte Esterase Neg (Negative) 02/20/21 04:31 Urine WBC (Auto) 1.0 /HPF (0.0-6.0) 02/20/21 04:31 Urine RBC (Auto) 2.0 /HPF (0.0-6.0) 02/20/21 04:31 U Epithel Cells (Auto) < 1.0 /HPF (0-13.0) 02/20/21 04:31 Urine Bacteria (Auto) 1+ /HPF (Negative) 02/20/21 04:31 Urine HCG, Qual Negative (Negative) 02/20/21 04:31 Coronavirus (PCR) Negative (Negative) 02/20/21 Unknown Amato/IV: Voiding Method Bedside Commode Active Medications - Current Medications Current Medications: Generic Name Dose Route Start Last Admin Trade Name Freq PRN Reason Stop Dose Admin Acetaminophen 650 mg 02/20/21 02:04 02/25/21 05:09 Acetaminophen 325 Mg Tab PO 650 mg Q4H PRN Administration Pain MILD(1-3)/Fever >100.5/LOCO Albuterol 2.5 mg 02/20/21 07:39 Albuterol 2.5 Mg/3 Ml Nebu IH TIDRT PRN Shortness Of Breath Carvedilol 12.5 mg 02/22/21 22:00 02/25/21 10:18 Carvedilol 12.5 Mg Tab PO 12.5 mg BID VERONICA Administration Furosemide 40 mg 02/20/21 09:00 02/25/21 10:06 Furosemide 40 Mg/4 Ml Inj IV 40 mg Q12HR@0800,2000 VERONICA Administration Heparin Sodium (Porcine) 5,000 unit 02/21/21 14:00 02/25/21 14:23 Heparin 5,000 Unit/1 Ml Vial SUB-Q 5,000 unit Q8HR VERONICA Administration Hydralazine HCl 25 mg 02/20/21 22:00 02/25/21 14:26 Hydralazine 25 Mg Tab PO 25 mg Q8HR VERONICA Administration Ibuprofen 600 mg 02/20/21 20:17 02/24/21 06:28 Ibuprofen 600 Mg Tab PO 600 mg Q6H PRN Administration Pain , Severe (7-10) Magnesium Hydroxide 30 ml 02/20/21 02:04 02/22/21 13:47 Magnesium Hydroxide (Mom) Oral Liqd Udc PO 30 ml Q4H PRN Administration Constipation Morphine Sulfate 2 mg 02/20/21 02:04 Morphine 2 Mg/1 Ml Inj IV Q5MIN PRN Chest Pain unrelieved by NTG Ondansetron HCl 4 mg 02/20/21 02:04 Ondansetron 4 Mg/2 Ml Inj IV Q8H PRN Nausea And Vomiting Senna/Docusate Sodium 2 tab 02/22/21 17:43 02/24/21 21:20 Sennosides/Docusate Sodium 8.6/50 Mg Tab PO 2 tab Q12H PRN Administration Laxative Effect Sodium Chloride 10 ml 02/20/21 10:00 02/25/21 10:19 Sodium Chloride 0.9% 10 Ml Flush Syringe IV 10 ml BID VERONICA Administration Sodium Chloride 10 ml 02/20/21 02:04 Sodium Chloride 0.9% 10 Ml Flush Syringe IV PRN PRN LINE FLUSH Nutrition/Malnutrition Assess - Dietary Evaluation Nutrition/Malnutrition Findings: Nutrition Notes Start: 02/20/21 09:01 Freq: Status: Active Protocol: Document 02/20/21 09:02 MARGIE (Rec: 02/20/21 09:03 MARGIE [id number]) Nutrition Notes Need for Assessment generated from: care rep Initial or Follow up Brief Note Current Diagnosis Heart Failure Other Pertinent Diagnosis COVID PUI Current Diet Cardiac Subjective/Other Information RN screen for skin risk. Asad score 19. No wounds noted in chart. Will f/u per further consult or LOS. Nutrition Intervention Revisit per MD consult or patient Sign Off request:
[2021-02-25] MEDS: IBUPROFEN 600 MG TAB PO PRN (18:46)
[2021-02-26] MEDS: ACETAMINOPHEN 325 MG TAB PO PRN ×3 (04:53→19:28)
[2021-02-26] MEDS: HEPARIN 5,000 UNIT/1 ML VIAL SUB-Q SCH ×3 (05:27→22:04)
[2021-02-26] MEDS: hydrALAZINE 25 MG TAB PO SCH ×3 (05:27→22:04)
[2021-02-26 05:44] LABS: Hemolysis Index 180
[2021-02-26 05:50] LABS: BUN/Creatinine Ratio TNR; Blood Urea Nitrogen TNR mg/dL (7-17); Calcium TNR mg/dL (8.4-10.2)
[2021-02-26 08:07] LABS: Blood Urea Nitrogen 15 mg/dL (7-17); Calcium 9.3 mg/dL (8.4-10.2); Hemolysis Index 3
[2021-02-26] MEDS: FUROSEMIDE 40 MG/4 ML INJ IV SCH (08:16)
[2021-02-26 08:19] LABS: BUN/Creatinine Ratio 25
--- NOTE | 2021-02-26 08:56 | XRay Report ---
CHEST 1 VIEW 02/26/2021 7:49 AM INDICATION / CLINICAL INFORMATION: comparison. COMPARISON: 02/20/2021 FINDINGS: SUPPORT DEVICES: None. HEART / MEDIASTINUM: Cardiomegaly LUNGS / PLEURA: No significant pulmonary or pleural abnormality. No pneumothorax. ADDITIONAL FINDINGS: No significant additional findings. IMPRESSION: 1. No acute findings. Signer Name: Jared Moe MD Signed: 02/26/2021 8:51 AM Workstation Name: [id number]
--- NOTE | 2021-02-26 10:29 | Progress Note ---
Assessment and Plan This pt is a 35 year old female with a significant hx of morbid obesity (BMI 79). Pt is previously unknown to our practice. Pt presented to [facility] c/o SOB, nonproductive cough, orthopnea and BLE edema x 1 week. Pt in acute respiratory distress sPO2 89 on arrival to ER. SOB is worse with exertion and supine position. Pt denies CP, weakness, dizziness, ABD pain, N/V/D, recent illness or exposures. BNP and Ddimer are noted to be elevated on admission. Pt is a Covid 19 PUI- PCR Negative. CXR reviewed: R PNA. Echo reviewed (02/20/21): EF 55-60%. Severe LVH. Flattened septum with RV volume and pressure overload. RV moderately dilated. RA mildly dilated. Mild TR. 02/26/21 Pt resting comfortably in bed. Denies CP, CASIMIRO overnight. Pt feels much better and is asking when she can be discharged. Tele reviewed: SR 84. No events overnight HFpEF Convert to Lasix 40mg PO BID. Repeat BMP in am. Continue strict I/Os Acute Resp Failure Pt is on NC 3lpm down from 5lpm yesterday. She was not previously on home O2. Wean as tolerated. Pulmonology recs: OP PFT and Sleep study for STEPHEN. may need home O2 going forward. Elevated Ddimer Pt cannot undergo CTA or VQ scan due to body habitus and table weight limits. Further assessment per primary team. STEPHEN Continue CPAP QHS. Not previously on CPAP therapy or followed by pulmonology. Recommend OP f/u for management of suspected STEPHEN. HTN Continue current regimen Coreg 12.5mg PO BID, Hydralazine 25 TID. DVT Prophylaxis Continue Heparin subcutaneous inj for DVT prophylaxis. SCD ordered Pt is currently in stable cardiac status. Continue supportive care. Will follow. This pt was seen in conjunction with Dr Eulalia Calvo who agrees with this assessment and plan of care. - Patient Problems (1) Acute respiratory failure with hypoxia Current Visit: Yes Status: Acute (2) (HFpEF) heart failure with preserved ejection fraction Current Visit: Yes Status: Acute (3) STEPHEN (obstructive sleep apnea) Current Visit: Yes Status: Chronic (4) Severe obesity Current Visit: Yes Status: Chronic Subjective Date of service: 02/26/21 Principal diagnosis: A/C respiratory failure Interval history: Pt resting comfortably in bed. Denies CP, CASIMIRO overnight. Pt feels much better and is asking when she can be discharged. Tele reviewed: SR 84. No events overnight Objective Last Vital Signs Temp 97.9 F 02/26/21 05:14 Pulse 82 02/26/21 05:14 Resp 18 02/26/21 05:14 BP 135/77 02/26/21 05:14 Pulse Ox 96 02/26/21 08:26 - Physical Examination General: Appears Well HEENT: Positive: PERRL, Normocephaly, Mucus Membranes Moist Neck: Positive: neck supple, trachea midline Cardiac: Positive: Reg Rate and Rhythm, S1/S2 Lungs: Positive: No Wheeze, Rales, Rhonchi Neuro: Positive: Grossly Intact Abdomen: Positive: Unremarkable, Soft Skin: Negative: Rash, Wound Musculoskeletal: No Pain Extremities: Present: upper extr. pulses, lower extr. pulses, +1 Edema - Labs and Meds Comprehensive Metabolic Panel 02/26/21 02/26/21 Range/Units 05:01 07:21 Sodium TNR 138 Potassium TNR 4.5 Chloride TNR 88.7 L Carbon Dioxide TNR 45 H* BUN TNR 15 Creatinine TNR 0.6 Glucose TNR 96 Calcium TNR 9.3 - Imaging and Cardiology EKG: report reviewed, image reviewed Echo: report reviewed (Echo reviewed (02/20/21): EF 55-60%. Severe LVH. Flatten ed septum with RV volume and pressure overload. RV moderately dilated. RA mildly dilated. ) - Telemetry EKG Rhythm: Sinus Rhythm - EKG Sinus rhythms and dysrhythmias: sinus tachycardia
--- NOTE | 2021-02-26 10:33 | Progress Note ---
Assessment and Plan Assessment and plan: --COVID-19 test negative -- Acute heart failure/diastolic CHF Current Visit: Yes Status: Acute EF 55 to 60 percent, Cont Diuresis Input output monitoring, low-sodium, fluid restriction strongly advised to comply with medications --Acute respiratory failure with hypoxia Current Visit: Yes Status: Acute Hyoiventilation sec to Morbid obesity Pickwickian syndrome, STEPHEN, OHS, Oxygen titrate O2 sats to more than 90% CPAP/BiPAP at night and as needed during daytime Patient need outpatient sleep studies, at [facility] office --Morbid obesity; BMI 79.2 Current Visit: Yes Status: Acute Lifestyle modification encouraged. Dietary modification Exercise as tolerated and weight reduction when medically stable Bariatric surgery as outpatient and follow up with Dr Merino suggested. --Obstructive sleep apnea; Current Visit: Yes Status: Acute Patient needs outpatient sleep study CPAP/BiPAP at night and daytime as needed. --OHS; obesity hypoventilation syndrome Current Visit: Yes Status: Acute Oxygen supplementation, titrate O2 sats to more than 90%, CPAP BiPAP as needed Patient needs to follow-up with [facility] regularly --DVT prophylaxis Current Visit: Yes Status: Acute Patient placed on subcutaneous Lovenox. --Full code status Current Visit: Yes Status: Acute Patient is a full code. We will closely monitor the patient and adjust management as needed Plan of care reviewed with the patient and her nurse She has some questions answered all of them Brief history: 35-year-old -Algerian female with no significant past medical history except morbid obesity with a BMI of 79 presenting to the emergency room today complaining of shortness of breath which has been ongoing for about 1 week. Shortness of breath is said to be worse on exertion and while lying down flat. She has been having some lower extremity swelling. She denies any chest pain, no fever or chills, no headache or dizziness, no diaphoresis. Patient denies any nausea vomiting, no abdominal pain, no hematuria or dysuria. She has had some cough which is nonproductive. 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 She denies any recent travel. Denies any contact with anyone with COVID-19. Upon arrival in the emergency room today she was hypoxic with oxygen saturation of about 89% upon arrival in the emergency room. Work-up in the emergency room reveals elevated BNP, elevated D-dimer. Patient was too large for the scan machine for VQ scan and there was no adequate access to be scheduled for CT angiogram. Chest x-ray was significant for possible pulmonary edema. Patient has been admitted with respiratory failure, and hypertensive emergency and new onset CHF. She will also be ruled out for COVID-19. 02/20/21 acute respiratory failure, On Bipap Hypercapneic bcoxz of noncompliance with Bipap 02/21; mild improvement 02/22/21;Covid negative,On 10 liters [place] o2 02/23;SOB present but better, On 8 liters [place] o2 02/24; patient needs outpatient sleep study, PFTs upon discharge Also needs bariatric surgical evaluation for weight reduction program Home oxygen evaluation, home CPAP BiPAP evaluation prior to discharge 02/25; home O2 evaluation, resting room air, ambulatory in the room room air O2 sats 02/26; patient is morbidly obese BMI 79.2 History Interval history: I have seen and examined the patient at the bedside Patient's chart and medications reviewed Morbidly obese in mild distress Patient complains of mild shortness of breath Denies chest pain Vital signs noted Hospitalist Physical - Constitutional Vitals: Temp Pulse Resp BP Pulse Ox 97.9 F 82 18 135/77 96 02/26/21 05:14 02/26/21 05:14 02/26/21 05:14 02/26/21 05:14 02/26/21 08:26 General appearance: Present: no acute distress, well-nourished, obese (Morbidly obese BMI 79.2) - EENT Eyes: Present: PERRL, EOM intact - Neck Neck: Present: supple, normal ROM - Respiratory Respiratory effort: normal Respiratory: bilateral: diminished, rales, rhonchi, negative: wheezing - Cardiovascular Rhythm: regular Heart Sounds: Present: S1 & S2 - Extremities Extremities: no ischemia Extremity abnormal: edema - Abdominal General gastrointestinal: soft, non-tender, non-distended, normal bowel sounds - Integumentary Integumentary: Present: clear, warm - Psychiatric Psychiatric: appropriate mood/affect - Neurologic Neurologic: moves all extremities HEART Score - HEART Score Troponin: Troponin T < 0.010 ng/mL (0.00-0.029) 02/21/21 08:14 Results - Labs CBC & Chem 7: 02/21/21 08:14 02/26/21 07:21 Labs: Laboratory Last Values WBC 11.8 K/mm3 (4.5-11.0) H 02/21/21 08:14 RBC 6.05 M/mm3 (3.65-5.03) H 02/21/21 08:14 Hgb 10.3 gm/dl (10.1-14.3) 02/21/21 08:14 Hct 37.6 % (30.3-42.9) 02/21/21 08:14 MCV 62 fl (79-97) L 02/21/21 08:14 MCH 17 pg (28-32) L 02/21/21 08:14 MCHC 27 % (30-34) L 02/21/21 08:14 RDW 21.5 % (13.2-15.2) H 02/21/21 08:14 Plt Count 371 K/mm3 (140-440) 02/21/21 08:14 Lymph % (Auto) 12.3 % (13.4-35.0) L 02/21/21 08:14 [place] % (Auto) 12.3 % (0.0-7.3) H 02/21/21 08:14 Eos % (Auto) 0.2 % (0.0-4.3) 02/21/21 08:14 Baso % (Auto) 0.4 % (0.0-1.8) 02/21/21 08:14 Lymph # (Auto) 1.5 K/mm3 (1.2-5.4) 02/21/21 08:14 [place] # (Auto) 1.4 K/mm3 (0.0-0.8) H 02/21/21 08:14 Eos # (Auto) 0.0 K/mm3 (0.0-0.4) 02/21/21 08:14 Baso # (Auto) 0.0 K/mm3 (0.0-0.1) 02/21/21 08:14 Seg Neutrophils % 74.8 % (40.0-70.0) H 02/21/21 08:14 Seg Neutrophils # 8.8 K/mm3 (1.8-7.7) H 02/21/21 08:14 PT 13.1 Sec. (12.2-14.9) 02/21/21 08:14 INR 1.01 (0.87-1.13) 02/21/21 08:14 D-Dimer 277.95 ng/mlDDU (0-234) H 02/19/21 22:26 ABG pH 7.237 pH Units (7.350-7.450) L 02/21/21 05:30 ABG pCO2 95.9 mm Hg 02/21/21 05:30 ABG pO2 82.9 mm Hg (80.0-90.0) 02/21/21 05:30 ABG HCO3 39.8 mmol/L (20.0-26.0) H 02/21/21 05:30 ABG O2 Saturation 95.0 % (95.0-99.0) 02/21/21 05:30 ABG O2 Content 19.9 (0.0-44) 02/21/21 05:30 ABG Base Excess 8.1 mmol/L (-2.0-3.0) H 02/21/21 05:30 ABG Hemoglobin 9.6 gm/dl (12.0-16.0) L 02/21/21 05:30 ABG Carboxyhemoglobin 2.3 % (0.0-5.0) 02/21/21 05:30 ABG Methemoglobin 0.5 % (0.0-1.5) 02/21/21 05:30 Oxyhemoglobin 92.3 % (95.0-99.0) L 02/21/21 05:30 FiO2 21 % 02/21/21 05:30 Sodium 138 mmol/L (137-145) 02/26/21 07:21 Potassium 4.5 mmol/L (3.6-5.0) 02/26/21 07:21 Chloride 88.7 mmol/L (98-107) L 02/26/21 07:21 Carbon Dioxide 45 mmol/L (22-30) H* 02/26/21 07:21 Anion Gap 9 mmol/L 02/26/21 07:21 BUN 15 mg/dL (7-17) 02/26/21 07:21 Creatinine 0.6 mg/dL (0.6-1.2) 02/26/21 07:21 Estimated GFR > 60 ml/min 02/26/21 07:21 BUN/Creatinine Ratio 25 % 02/26/21 07:21 Glucose 96 mg/dL (65-100) 02/26/21 07:21 POC Glucose 91 mg/dL (70-105) 02/26/21 07:36 Hemoglobin A1c 5.6 % (4-6) 02/21/21 08:14 Calcium 9.3 mg/dL (8.4-10.2) 02/26/21 07:21 Magnesium 2.00 mg/dL (1.7-2.3) 02/25/21 07:42 Ferritin 11.9 ng/mL (10.0-200.0) 02/19/21 22:26 Total Bilirubin 0.90 mg/dL (0.1-1.2) 02/19/21 22:19 AST 21 units/L (5-40) 02/19/21 22:19 ALT 23 units/L (7-56) 02/19/21 22:19 Alkaline Phosphatase 79 units/L (35-129) 02/19/21 22:19 Lactate Dehydrogenase 343 units/L (91-180) H 02/19/21 22:26 Troponin T < 0.010 ng/mL (0.00-0.029) 02/21/21 08:14 C-Reactive Protein 1.20 mg/dL (0.00-1.30) 02/19/21 22:26 NT-Pro-B Natriuret Pep 2354 pg/mL (0-450) H 02/19/21 22:26 Total Protein 6.9 g/dL (6.3-8.2) 02/19/21 22:19 Albumin 4.0 g/dL (3.9-5) 02/19/21 22:19 Albumin/Globulin Ratio 1.4 % 02/19/21 22:19 Cholesterol 147 mg/dL (50-199) 02/21/21 08:14 Procalcitonin < 0.05 ng/mL (<0.15) 02/19/21 22:26 Urine Color Yellow (Yellow) 02/20/21 04:31 Urine Turbidity Slightly-cloudy (Clear) 02/20/21 04:31 Urine pH 5.0 (5.0-7.0) 02/20/21 04:31 Ur Specific [place] 1.009 (1.003-1.030) 02/20/21 04:31 Urine Protein 100 mg/dl mg/dL (Negative) 02/20/21 04:31 Urine Glucose (UA) Neg mg/dL (Negative) 02/20/21 04:31 Urine Ketones Neg mg/dL (Negative) 02/20/21 04:31 Urine Blood Neg (Negative) 02/20/21 04:31 Urine Nitrite Neg (Negative) 02/20/21 04:31 Urine Bilirubin Neg (Negative) 02/20/21 04:31 Urine Urobilinogen < 2.0 mg/dL (<2.0) 02/20/21 04:31 Ur Leukocyte Esterase Neg (Negative) 02/20/21 04:31 Urine WBC (Auto) 1.0 /HPF (0.0-6.0) 02/20/21 04:31 Urine RBC (Auto) 2.0 /HPF (0.0-6.0) 02/20/21 04:31 U Epithel Cells (Auto) < 1.0 /HPF (0-13.0) 02/20/21 04:31 Urine Bacteria (Auto) 1+ /HPF (Negative) 02/20/21 04:31 Urine HCG, Qual Negative (Negative) 02/20/21 04:31 Coronavirus (PCR) Negative (Negative) 02/20/21 Unknown Amato/IV: Voiding Method External Female Catheter Active Medications - Current Medications Current Medications: Generic Name Dose Route Start Last Admin Trade Name Freq PRN Reason Stop Dose Admin Acetaminophen 650 mg 02/20/21 02:04 02/26/21 04:53 Acetaminophen 325 Mg Tab PO 650 mg Q4H PRN Administration Pain MILD(1-3)/Fever >100.5/LOCO Albuterol 2.5 mg 02/20/21 07:39 Albuterol 2.5 Mg/3 Ml Nebu IH TIDRT PRN Shortness Of Breath Carvedilol 12.5 mg 02/22/21 22:00 02/25/21 21:45 Carvedilol 12.5 Mg Tab PO 12.5 mg BID VERONICA Administration Furosemide 40 mg 02/20/21 09:00 02/26/21 08:16 Furosemide 40 Mg/4 Ml Inj IV 40 mg Q12HR@0800,2000 VERONICA Administration Heparin Sodium (Porcine) 5,000 unit 02/21/21 14:00 02/26/21 05:27 Heparin 5,000 Unit/1 Ml Vial SUB-Q 5,000 unit Q8HR VERONICA Administration Hydralazine HCl 25 mg 02/20/21 22:00 02/26/21 05:27 Hydralazine 25 Mg Tab PO 25 mg Q8HR VERONICA Administration Ibuprofen 600 mg 02/20/21 20:17 02/25/21 18:46 Ibuprofen 600 Mg Tab PO 600 mg Q6H PRN Administration Pain , Severe (7-10) Magnesium Hydroxide 30 ml 02/20/21 02:04 02/22/21 13:47 Magnesium Hydroxide (Mom) Oral Liqd Udc PO 30 ml Q4H PRN Administration Constipation Morphine Sulfate 2 mg 02/20/21 02:04 Morphine 2 Mg/1 Ml Inj IV Q5MIN PRN Chest Pain unrelieved by NTG Ondansetron HCl 4 mg 02/20/21 02:04 Ondansetron 4 Mg/2 Ml Inj IV Q8H PRN Nausea And Vomiting Senna/Docusate Sodium 2 tab 02/22/21 17:43 02/24/21 21:20 Sennosides/Docusate Sodium 8.6/50 Mg Tab PO 2 tab Q12H PRN Administration Laxative Effect Sodium Chloride 10 ml 02/20/21 10:00 02/26/21 01:59 Sodium Chloride 0.9% 10 Ml Flush Syringe IV 10 ml BID VERONICA Administration Sodium Chloride 10 ml 02/20/21 02:04 Sodium Chloride 0.9% 10 Ml Flush Syringe IV PRN PRN LINE FLUSH Nutrition/Malnutrition Assess - Dietary Evaluation Nutrition/Malnutrition Findings: Nutrition Notes Start: 02/20/21 09:01 Freq: Status: Active Protocol: Document 02/20/21 09:02 MARGIE (Rec: 02/20/21 09:03 MARGIE [id number]) Nutrition Notes 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 Asad score 19. No wounds noted in chart. Will f/u per further consult or LOS. Nutrition Intervention Revisit per MD consult or patient Sign Off request:
[2021-02-26] MEDS: carvediloL 12.5 MG TAB PO SCH ×2 (11:28→22:04)
--- NOTE | 2021-02-26 14:15 | Progress Note ---
Assessment and Plan 35 y/o female with hypoxemia, concern for CHF and PUI for COVID, COVID negative. 02/26/21: If able, need walk test to determine oxygen needs if any, hopefully not. Obtain funding. Once established outpatient STEPHEN work up and sleep study. 02/25/21: No new recs. Same as below 02/24/21: Most likely patient will need home O2 that she should wear /. needs outpatient sleep study but with lack of funding, not sure if this will happen. elevated CO2 levels are likely from chronic CO2 retention plus diuresis. Patient likely lives with a CO2 in the 70's Her ABG on room air on 02/21 showed a good PaO2 so continued diuresis may get her to the point that she does not need home O2. Weight loss is needed. 02/23/21: Continue diuresis as this has likely helped more than anything else. Needs outpatient sleep study. Weight loss is essential 1. Agree with diuresis 2. Likely has STEPHEN and OHS, will order bipap QHS and titrate to comfort and sat >88% 3. Too large for CT to rule out PE. If doesn't improve with diuretics, may ne ed empiric anticoagulation. Could consider echo but doubt windows will be helpful. 4. Very very guarded prognosis Subjective Date of service: 02/26/21 Principal diagnosis: A/C respiratory failure Interval history: Down to 3 liters NC. Still diuresing well. Reviewed executive search consultant notes. Objective Vital Signs - 12hr 02/26/21 02/26/21 02/26/21 05:14 08:26 11:28 Temperature 97.9 F Pulse Rate 82 86 Respiratory 18 Rate Blood Pressure 148/80 Blood Pressure 135/77 [Right] O2 Sat by Pulse 100 96 Oximetry Constitutional: no acute distress, asleep Eyes: non-icteric ENT: oropharynx moist Effort: normal Ascultation: Bilateral: diminished breath sounds Cardiovascular: regular rate and rhythm (no mrg) Gastrointestinal: normoactive bowel sounds, non-tender, non-distended Integumentary: normal Extremities: no cyanosis, pink and warm, edema Neurologic: normal mental status, non-focal exam Psychiatric: mood appropriate, affect normal CBC and BMP: 02/21/21 08:14 02/26/21 07:21 ABG, PT/INR, D-dimer: ABG ABG pH 7.237 pH Units (7.350-7.450) L 02/21/21 05:30 ABG pCO2 95.9 mm Hg 02/21/21 05:30 ABG pO2 82.9 mm Hg (80.0-90.0) 02/21/21 05:30 ABG O2 Saturation 95.0 % (95.0-99.0) 02/21/21 05:30 PT/INR, D-dimer PT 13.1 Sec. (12.2-14.9) 02/21/21 08:14 INR 1.01 (0.87-1.13) 02/21/21 08:14 D-Dimer 277.95 ng/mlDDU (0-234) H 02/19/21 22:26 Abnormal lab findings: Abnormal Labs 02/19/21 02/19/21 02/19/21 22:19 22:19 22:26 WBC RBC 5.53 H Hgb 9.6 L MCV 62 L MCH 17 L MCHC 28 L RDW 21.4 H Lymph % (Auto) [place] % (Auto) 11.5 H [place] # (Auto) 1.1 H Seg Neutrophils % Seg Neutrophils # D-Dimer ABG pH ABG HCO3 ABG Base Excess ABG Hemoglobin Oxyhemoglobin Potassium 5.1 H Chloride Carbon Dioxide 35 H Glucose 110 H POC Glucose Lactate Dehydrogenase NT-Pro-B Natriuret Pep 2354 H 02/19/21 02/19/21 02/20/21 22:26 22:26 07:12 WBC RBC Hgb MCV MCH MCHC RDW Lymph % (Auto) [place] % (Auto) [place] # (Auto) Seg Neutrophils % Seg Neutrophils # D-Dimer 277.95 H ABG pH ABG HCO3 ABG Base Excess ABG Hemoglobin Oxyhemoglobin Potassium Chloride Carbon Dioxide Glucose 111 H POC Glucose 117 H Lactate Dehydrogenase 343 H NT-Pro-B Natriuret Pep 02/21/21 02/21/21 02/21/21 05:30 08:14 08:14 WBC 11.8 H RBC 6.05 H Hgb MCV 62 L MCH 17 L MCHC 27 L RDW 21.5 H Lymph % (Auto) 12.3 L [place] % (Auto) 12.3 H [place] # (Auto) 1.4 H Seg Neutrophils % 74.8 H Seg Neutrophils # 8.8 H D-Dimer ABG pH 7.237 L ABG HCO3 39.8 H ABG Base Excess 8.1 H ABG Hemoglobin 9.6 L Oxyhemoglobin 92.3 L Potassium 5.6 H Chloride Carbon Dioxide 35 H Glucose 114 H POC Glucose Lactate Dehydrogenase NT-Pro-B Natriuret Pep 02/21/21 02/24/21 02/25/21 09:23 05:04 07:42 WBC RBC Hgb MCV MCH MCHC RDW Lymph % (Auto) [place] % (Auto) [place] # (Auto) Seg Neutrophils % Seg Neutrophils # D-Dimer ABG pH ABG HCO3 ABG Base Excess ABG Hemoglobin Oxyhemoglobin Potassium Chloride 90.6 L 92.7 L Carbon Dioxide 44 H* D 45 H* Glucose POC Glucose 107 H Lactate Dehydrogenase NT-Pro-B Natriuret Pep 02/26/21 07:21 WBC RBC Hgb MCV MCH MCHC RDW Lymph % (Auto) [place] % (Auto) [place] # (Auto) Seg Neutrophils % Seg Neutrophils # D-Dimer ABG pH ABG HCO3 ABG Base Excess ABG Hemoglobin Oxyhemoglobin Potassium Chloride 88.7 L Carbon Dioxide 45 H* Glucose POC Glucose Lactate Dehydrogenase NT-Pro-B Natriuret Pep
[2021-02-26] MEDS: FUROSEMIDE 40 MG TAB PO SCH (18:57)
[2021-02-27] MEDS: ACETAMINOPHEN 325 MG TAB PO PRN (01:30)
[2021-02-27] MEDS: HEPARIN 5,000 UNIT/1 ML VIAL SUB-Q SCH ×3 (05:08→22:48)
[2021-02-27] MEDS: hydrALAZINE 25 MG TAB PO SCH ×3 (05:08→22:00)
[2021-02-27] MEDS: FUROSEMIDE 40 MG TAB PO SCH ×2 (05:08→17:22)
[2021-02-27 06:32] LABS: Mean Corpuscular HGB Conc 28 % (30-34); Platelet Count 333 K/mm3 (140-440); Red Blood Count 5.33 M/mm3 (3.65-5.03)
[2021-02-27 06:43] LABS: Hematocrit 32.9 % (30.3-42.9); Hemoglobin 9.1 gm/dl (10.1-14.3); Mean Corpuscular Volume 62 fl (79-97); Red Cell Distribution Width 20.8 % (13.2-15.2)
[2021-02-27 06:55] LABS: Blood Urea Nitrogen 15 mg/dL (7-17); Hemolysis Index 4
[2021-02-27 07:30] LABS: BUN/Creatinine Ratio 25
[2021-02-27 08:40] LABS: Anisocytosis 1+; Total Cells Counted 100
[2021-02-27 08:41] LABS: Hypochromasia 3+; Large Platelets Few; Platelet Estimate Cons
[2021-02-27] MEDS: carvediloL 12.5 MG TAB PO SCH ×2 (09:28→22:00)
--- NOTE | 2021-02-27 16:31 | Progress Note ---
Assessment and Plan 02/27/21 Pt resting comfortably in bed. Denies CP, CASIMIRO overnight. Currently on NC 5lpm via NC. Not using CPAP Tele reviewed: SR 85. No events overnight. HFpEF Continue Lasix 40mg PO BID. Pulmonology recs continued diuresis for the moment. P will need walking assessment to determine need for home o2 per Pulm. Repeat BMP in am. Continue strict I/Os Acute Resp Failure Pt is on NC 5lpm down from 5lpm yesterday. She was not previously on home O2. Wean as tolerated. Pulmonology recs: OP PFT and Sleep study for STEPHEN. may need home O2 going forward. Elevated Ddimer Pt cannot undergo CTA or VQ scan due to body habitus and table weight limits. Further assessment per primary team. STEPHEN Continue CPAP QHS. CPAP is at bedside. Not previously on CPAP therapy or followed by pulmonology. Recommend OP f/u for management of suspected STEPHEN. HTN Continue current regimen Coreg 12.5mg PO BID, Hydralazine 25 TID. DVT Prophylaxis Continue Heparin subcutaneous inj for DVT prophylaxis. SCD ordered Pt is currently in stable cardiac status. Continue supportive care. Will follow. This pt was seen in conjunction with Dr Eulalia Calvo who agrees with this assessment and plan of care. - Patient Problems (1) Acute respiratory failure with hypoxia Current Visit: Yes Status: Acute (2) (HFpEF) heart failure with preserved ejection fraction Current Visit: Yes Status: Acute (3) STEPHEN (obstructive sleep apnea) Current Visit: Yes Status: Chronic (4) Severe obesity Current Visit: Yes Status: Chronic Subjective Date of service: 02/27/21 Principal diagnosis: A/C respiratory failure Interval history: Pt resting comfortably in bed. Denies CP, CASIMIRO overnight. Currently on NC 5lpm via NC. Not using CPAP Tele reviewed: SR 85. No events overnight. Objective Last Vital Signs Temp 98.4 F 02/27/21 13:38 Pulse 83 02/27/21 14:52 Resp 18 02/27/21 13:38 BP 138/59 02/27/21 14:52 Pulse Ox 97 02/27/21 13:38 - Physical Examination General: Appears Well HEENT: Positive: PERRL, Normocephaly, Mucus Membranes Moist Neck: Positive: neck supple, trachea midline Cardiac: Positive: Reg Rate and Rhythm, S1/S2 Lungs: Positive: Decreased Breath Sounds Neuro: Positive: Grossly Intact Abdomen: Positive: Unremarkable, Soft Skin: Negative: Rash, Wound Musculoskeletal: No Pain Extremities: Present: upper extr. pulses, lower extr. pulses, +1 Edema - Labs and Meds CBC 02/27/21 Range/Units 05:38 WBC 8.3 (4.5-11.0) K/mm3 RBC 5.33 H (3.65-5.03) M/mm3 Hgb 9.1 L (10.1-14.3) gm/dl Hct 32.9 (30.3-42.9) % Plt Count 333 (140-440) K/mm3 Comprehensive Metabolic Panel 02/27/21 Range/Units 05:38 Sodium 139 (137-145) mmol/L Potassium 4.1 (3.6-5.0) mmol/L Chloride 89.2 L (98-107) mmol/L Carbon Dioxide 43 H* (22-30) mmol/L BUN 15 (7-17) mg/dL Creatinine 0.6 (0.6-1.2) mg/dL Glucose 93 (65-100) mg/dL Calcium 9.0 (8.4-10.2) mg/dL - Imaging and Cardiology EKG: report reviewed, image reviewed Echo: report reviewed (Echo reviewed (02/20/21): EF 55-60%. Severe LVH. Flattened septum with RV volume and pressure overload. RV moderately dilated. RA mildly dilated. ) - Telemetry EKG Rhythm: Sinus Rhythm - EKG Sinus rhythms and dysrhythmias: sinus tachycardia
--- NOTE | 2021-02-27 18:41 | Progress Note ---
Assessment and Plan Assessment and plan: --COVID-19 test negative -- Acute heart failure/diastolic CHF Current Visit: Yes Status: Acute EF 55 to 60 percent, Cont Diuresis Input output monitoring, low-sodium, fluid restriction strongly advised to comply with medications --Acute respiratory failure with hypoxia Current Visit: Yes Status: Acute Hyoiventilation sec to Morbid obesity Pickwickian syndrome, STEPHEN, OHS, Oxygen titrate O2 sats to more than 90% CPAP/BiPAP at night and as needed during daytime Patient need outpatient sleep studies, at [employer] office --Morbid obesity; BMI 79.2 Current Visit: Yes Status: Acute Lifestyle modification encouraged. Dietary modification Exercise as tolerated and weight reduction when medically stable Bariatric surgery as outpatient and follow up with Dr Merino suggested. --Obstructive sleep apnea; Current Visit: Yes Status: Acute Patient needs outpatient sleep study CPAP/BiPAP at night and daytime as needed. --OHS; obesity hypoventilation syndrome Current Visit: Yes Status: Acute Oxygen supplementation, titrate O2 sats to more than 90%, CPAP BiPAP as needed Patient needs to follow-up with [employer] regularly --DVT prophylaxis Current Visit: Yes Status: Acute Patient placed on subcutaneous Lovenox. --Full code status Current Visit: Yes Status: Acute Patient is a full code. We will closely monitor the patient and adjust management as needed Plan of care reviewed with the patient and her nurse She has some questions answered all of them Brief history: 35-year-old -Italian female with no significant past medical history except morbid obesity with a BMI of 79 presenting to the emergency room today complaining of shortness of breath which has been ongoing for about 1 week. Shortness of breath is said to be worse on exertion and while lying down flat. She has been having some lower extremity swelling. She denies any chest pain, no fever or chills, no headache or dizziness, no diaphoresis. Patient denies any nausea vomiting, no abdominal pain, no hematuria or dysuria. She has had some cough which is nonproductive. 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 She denies any recent travel. Denies any contact with anyone with COVID-19. Upon arrival in the emergency room today she was hypoxic with oxygen saturation of about 89% upon arrival in the emergency room. Work-up in the emergency room reveals elevated BNP, elevated D-dimer. Patient was too large for the scan machine for VQ scan and there was no adequate access to be scheduled for CT angiogram. Chest x-ray was significant for possible pulmonary edema. Patient has been admitted with respiratory failure, and hypertensive emergency and new onset CHF. She will also be ruled out for COVID-19. 02/20/21 acute respiratory failure, On Bipap Hypercapneic bcoxz of noncompliance with Bipap 02/21; mild improvement 02/22/21;Covid negative,On 10 liters [place] o2 02/23;SOB present but better, On 8 liters [place] o2 02/24; patient needs outpatient sleep study, PFTs upon discharge Also needs bariatric surgical evaluation for weight reduction program Home oxygen evaluation, home CPAP BiPAP evaluation prior to discharge 02/25; home O2 evaluation, resting room air, ambulatory in the room room air O2 sats 02/26; patient is morbidly obese BMI 79.2 02/27; home oxygen evaluation, PT evaluation Patient need outpatient sleep study to evaluate for obstructive sleep apnea and for CPAP/BiPAP at home DC planning per case management, to assist with resources History Interval history: I have seen and examined the patient at the bedside Patient is morbidly obese in mild distress continues to have shortness of breath Vital signs noted Hospitalist Physical - Constitutional Vitals: Temp Pulse Resp BP Pulse Ox 98.4 F 83 18 138/59 97 02/27/21 13:38 02/27/21 14:52 02/27/21 13:38 02/27/21 14:52 02/27/21 13:38 General appearance: Present: no acute distress, well-nourished, obese (Morbidly obese BMI 79.2) - EENT Eyes: Present: PERRL, EOM intact - Neck Neck: Present: supple, normal ROM - Respiratory Respiratory effort: normal Respiratory: bilateral: diminished, rales, negative: rhonchi, wheezing - Cardiovascular Rhythm: regular Heart Sounds: Present: S1 & S2 - Extremities Extremities: no ischemia, No edema - Abdominal General gastrointestinal: soft, non-tender, non-distended, normal bowel sounds - Integumentary Integumentary: Present: clear, warm - Psychiatric Psychiatric: appropriate mood/affect, cooperative - Neurologic Neurologic: CNII-XII intact, moves all extremities HEART Score - HEART Score Troponin: Troponin T < 0.010 ng/mL (0.00-0.029) 02/21/21 08:14 Results - Labs CBC & Chem 7: 02/27/21 05:38 02/27/21 05:38 Labs: Laboratory Last Values WBC 8.3 K/mm3 (4.5-11.0) 02/27/21 05:38 RBC 5.33 M/mm3 (3.65-5.03) H 02/27/21 05:38 Hgb 9.1 gm/dl (10.1-14.3) L 02/27/21 05:38 Hct 32.9 % (30.3-42.9) 02/27/21 05:38 MCV 62 fl (79-97) L 02/27/21 05:38 MCH 17 pg (28-32) L 02/27/21 05:38 MCHC 28 % (30-34) L 02/27/21 05:38 RDW 20.8 % (13.2-15.2) H 02/27/21 05:38 Plt Count 333 K/mm3 (140-440) 02/27/21 05:38 Lymph % (Auto) 12.3 % (13.4-35.0) L 02/21/21 08:14 [place] % (Auto) Clinical Data Specialist 02/27/21 05:38 Eos % (Auto) 0.2 % (0.0-4.3) 02/21/21 08:14 Baso % (Auto) 0.4 % (0.0-1.8) 02/21/21 08:14 Lymph # (Auto) 1.5 K/mm3 (1.2-5.4) 02/21/21 08:14 [place] # (Auto) 1.4 K/mm3 (0.0-0.8) H 02/21/21 08:14 Eos # (Auto) 0.0 K/mm3 (0.0-0.4) 02/21/21 08:14 Baso # (Auto) 0.0 K/mm3 (0.0-0.1) 02/21/21 08:14 Add Manual Diff Complete 02/27/21 05:38 Total Counted 100 02/27/21 05:38 Seg Neutrophils % 74.8 % (40.0-70.0) H 02/21/21 08:14 Seg Neuts % (Manual) 64.0 % (40.0-70.0) 02/27/21 05:38 Lymphocytes % (Manual) 11.0 % (13.4-35.0) L 02/27/21 05:38 Monocytes % (Manual) 17.0 % (0.0-7.3) H 02/27/21 05:38 Eosinophils % (Manual) 6.0 % (0.0-4.3) H 02/27/21 05:38 Basophils % (Manual) 2.0 % (0.0-1.8) H 02/27/21 05:38 Nucleated RBC % Not Reportable 02/27/21 05:38 Seg Neutrophils # 8.8 K/mm3 (1.8-7.7) H 02/21/21 08:14 Seg Neutrophils # Man 5.3 K/mm3 (1.8-7.7) 02/27/21 05:38 Band Neutrophils # 0.0 K/mm3 02/27/21 05:38 Lymphocytes # (Manual) 0.9 K/mm3 (1.2-5.4) L 02/27/21 05:38 Abs React Lymphs (Man) 0.0 K/mm3 02/27/21 05:38 Monocytes # (Manual) 1.4 K/mm3 (0.0-0.8) H 02/27/21 05:38 Eosinophils # (Manual) 0.5 K/mm3 (0.0-0.4) H 02/27/21 05:38 Basophils # (Manual) 0.2 K/mm3 (0.0-0.1) H 02/27/21 05:38 Metamyelocytes # 0.0 K/mm3 02/27/21 05:38 Myelocytes # 0.0 K/mm3 02/27/21 05:38 Promyelocytes # 0.0 K/mm3 02/27/21 05:38 Blast Cells # 0.0 K/mm3 02/27/21 05:38 WBC Morphology Not Reportable 02/27/21 05:38 Hypersegmented Neuts Not Reportable 02/27/21 05:38 Hyposegmented Neuts Not Reportable 02/27/21 05:38 Hypogranular Neuts Not Reportable 02/27/21 05:38 Smudge Cells Not Reportable 02/27/21 05:38 Toxic Granulation Not Reportable 02/27/21 05:38 Toxic Vacuolation Not Reportable 02/27/21 05:38 Dohle Bodies Not Reportable 02/27/21 05:38 Pelger-Huet Anomaly Not Reportable 02/27/21 05:38 Adele Rods Not Reportable 02/27/21 05:38 Platelet Estimate Cons 02/27/21 05:38 Clumped Platelets Not Reportable 02/27/21 05:38 Plt Clumps, EDTA Not Reportable 02/27/21 05:38 Large Platelets Few 02/27/21 05:38 Giant Platelets Not Reportable 02/27/21 05:38 Platelet Satelliting Not Reportable 02/27/21 05:38 Plt Morphology Comment Not Reportable 02/27/21 05:38 RBC Morphology Not Reportable 02/27/21 05:38 Dimorphic RBCs Not Reportable 02/27/21 05:38 Polychromasia Not Reportable 02/27/21 05:38 Hypochromasia 3+ 02/27/21 05:38 Poikilocytosis Not Reportable 02/27/21 05:38 Anisocytosis 1+ 02/27/21 05:38 Microcytosis 2+ 02/27/21 05:38 Macrocytosis Not Reportable 02/27/21 05:38 Spherocytes Not Reportable 02/27/21 05:38 Pappenheimer Bodies Not Reportable 02/27/21 05:38 Sickle Cells Not Reportable 02/27/21 05:38 Target Cells Not Reportable 02/27/21 05:38 Tear Drop Cells Not Reportable 02/27/21 05:38 Ovalocytes Not Reportable 02/27/21 05:38 Helmet Cells Not Reportable 02/27/21 05:38 [place] Bodies Not Reportable 02/27/21 05:38 [place] Rings Not Reportable 02/27/21 05:38 [place] Cells Not Reportable 02/27/21 05:38 Bite Cells Not Reportable 02/27/21 05:38 Crenated Cell Not Reportable 02/27/21 05:38 Elliptocytes Not Reportable 02/27/21 05:38 Acanthocytes (Spur) Not Reportable 02/27/21 05:38 Rouleaux Not Reportable 02/27/21 05:38 Hemoglobin C Crystals Not Reportable 02/27/21 05:38 Schistocytes Not Reportable 02/27/21 05:38 Malaria parasites Not Reportable 02/27/21 05:38 Mike Bodies Not Reportable 02/27/21 05:38 Hem Pathologist Commnt No 02/27/21 05:38 PT 13.1 Sec. (12.2-14.9) 02/21/21 08:14 INR 1.01 (0.87-1.13) 02/21/21 08:14 D-Dimer 277.95 ng/mlDDU (0-234) H 02/19/21 22:26 ABG pH 7.237 pH Units (7.350-7.450) L 02/21/21 05:30 ABG pCO2 95.9 mm Hg 02/21/21 05:30 ABG pO2 82.9 mm Hg (80.0-90.0) 02/21/21 05:30 ABG HCO3 39.8 mmol/L (20.0-26.0) H 02/21/21 05:30 ABG O2 Saturation 95.0 % (95.0-99.0) 02/21/21 05:30 ABG O2 Content 19.9 (0.0-44) 02/21/21 05:30 ABG Base Excess 8.1 mmol/L (-2.0-3.0) H 02/21/21 05:30 ABG Hemoglobin 9.6 gm/dl (12.0-16.0) L 02/21/21 05:30 ABG Carboxyhemoglobin 2.3 % (0.0-5.0) 02/21/21 05:30 ABG Methemoglobin 0.5 % (0.0-1.5) 02/21/21 05:30 Oxyhemoglobin 92.3 % (95.0-99.0) L 02/21/21 05:30 FiO2 21 % 02/21/21 05:30 Sodium 139 mmol/L (137-145) 02/27/21 05:38 Potassium 4.1 mmol/L (3.6-5.0) 02/27/21 05:38 Chloride 89.2 mmol/L (98-107) L 02/27/21 05:38 Carbon Dioxide 43 mmol/L (22-30) H* 02/27/21 05:38 Anion Gap 10 mmol/L 02/27/21 05:38 BUN 15 mg/dL (7-17) 02/27/21 05:38 Creatinine 0.6 mg/dL (0.6-1.2) 02/27/21 05:38 Estimated GFR > 60 ml/min 02/27/21 05:38 BUN/Creatinine Ratio 25 % 02/27/21 05:38 Glucose 93 mg/dL (65-100) 02/27/21 05:38 POC Glucose 91 mg/dL (70-105) 02/26/21 07:36 Hemoglobin A1c 5.6 % (4-6) 02/21/21 08:14 Calcium 9.0 mg/dL (8.4-10.2) 02/27/21 05:38 Magnesium 2.00 mg/dL (1.7-2.3) 02/25/21 07:42 Ferritin 11.9 ng/mL (10.0-200.0) 02/19/21 22:26 Total Bilirubin 0.90 mg/dL (0.1-1.2) 02/19/21 22:19 AST 21 units/L (5-40) 02/19/21 22:19 ALT 23 units/L (7-56) 02/19/21 22:19 Alkaline Phosphatase 79 units/L (35-129) 02/19/21 22:19 Lactate Dehydrogenase 343 units/L (91-180) H 02/19/21 22:26 Troponin T < 0.010 ng/mL (0.00-0.029) 02/21/21 08:14 C-Reactive Protein 1.20 mg/dL (0.00-1.30) 02/19/21 22:26 NT-Pro-B Natriuret Pep 2354 pg/mL (0-450) H 02/19/21 22:26 Total Protein 6.9 g/dL (6.3-8.2) 02/19/21 22:19 Albumin 4.0 g/dL (3.9-5) 02/19/21 22:19 Albumin/Globulin Ratio 1.4 % 02/19/21 22:19 Cholesterol 147 mg/dL (50-199) 02/21/21 08:14 Procalcitonin < 0.05 ng/mL (<0.15) 02/19/21 22:26 Urine Color Yellow (Yellow) 02/20/21 04:31 Urine Turbidity Slightly-cloudy (Clear) 02/20/21 04:31 Urine pH 5.0 (5.0-7.0) 02/20/21 04:31 Ur Specific [place] 1.009 (1.003-1.030) 02/20/21 04:31 Urine Protein 100 mg/dl mg/dL (Negative) 02/20/21 04:31 Urine Glucose (UA) Neg mg/dL (Negative) 02/20/21 04:31 Urine Ketones Neg mg/dL (Negative) 02/20/21 04:31 Urine Blood Neg (Negative) 02/20/21 04:31 Urine Nitrite Neg (Negative) 02/20/21 04:31 Urine Bilirubin Neg (Negative) 02/20/21 04:31 Urine Urobilinogen < 2.0 mg/dL (<2.0) 02/20/21 04:31 Ur Leukocyte Esterase Neg (Negative) 02/20/21 04:31 Urine WBC (Auto) 1.0 /HPF (0.0-6.0) 02/20/21 04:31 Urine RBC (Auto) 2.0 /HPF (0.0-6.0) 02/20/21 04:31 U Epithel Cells (Auto) < 1.0 /HPF (0-13.0) 02/20/21 04:31 Urine Bacteria (Auto) 1+ /HPF (Negative) 02/20/21 04:31 Urine HCG, Qual Negative (Negative) 02/20/21 04:31 Coronavirus (PCR) Negative (Negative) 02/20/21 Unknown Amato/IV: Voiding Method Toilet Active Medications - Current Medications Current Medications: Generic Name Dose Route Start Last Admin Trade Name Freq PRN Reason Stop Dose Admin Acetaminophen 650 mg 02/20/21 02:04 02/27/21 01:30 Acetaminophen 325 Mg Tab PO 650 mg Q4H PRN Administration Pain MILD(1-3)/Fever >100.5/LOCO Albuterol 2.5 mg 02/20/21 07:39 Albuterol 2.5 Mg/3 Ml Nebu IH TIDRT PRN Shortness Of Breath Carvedilol 12.5 mg 02/22/21 22:00 02/27/21 09:28 Carvedilol 12.5 Mg Tab PO 12.5 mg BID VERONICA Administration Furosemide 40 mg 02/26/21 18:00 02/27/21 17:22 Furosemide 40 Mg Tab PO 40 mg 0600,1800 VERONICA Administration Heparin Sodium (Porcine) 5,000 unit 02/21/21 14:00 02/27/21 14:52 Heparin 5,000 Unit/1 Ml Vial SUB-Q 5,000 unit Q8HR VERONICA Administration Hydralazine HCl 25 mg 02/20/21 22:00 02/27/21 14:52 Hydralazine 25 Mg Tab PO 25 mg Q8HR VERONICA Administration Ibuprofen 600 mg 02/20/21 20:17 02/25/21 18:46 Ibuprofen 600 Mg Tab PO 600 mg Q6H PRN Administration Pain , Severe (7-10) Magnesium Hydroxide 30 ml 02/20/21 02:04 02/22/21 13:47 Magnesium Hydroxide (Mom) Oral Liqd Udc PO 30 ml Q4H PRN Administration Constipation Morphine Sulfate 2 mg 02/20/21 02:04 Morphine 2 Mg/1 Ml Inj IV Q5MIN PRN Chest Pain unrelieved by NTG Ondansetron HCl 4 mg 02/20/21 02:04 Ondansetron 4 Mg/2 Ml Inj IV Q8H PRN Nausea And Vomiting Senna/Docusate Sodium 2 tab 02/22/21 17:43 02/24/21 21:20 Sennosides/Docusate Sodium 8.6/50 Mg Tab PO 2 tab Q12H PRN Administration Laxative Effect Sodium Chloride 10 ml 02/20/21 10:00 02/27/21 09:28 Sodium Chloride 0.9% 10 Ml Flush Syringe IV 10 ml BID VERONICA Administration Sodium Chloride 10 ml 02/20/21 02:04 Sodium Chloride 0.9% 10 Ml Flush Syringe IV PRN PRN LINE FLUSH Nutrition/Malnutrition Assess - Dietary Evaluation Nutrition/Malnutrition Findings: Nutrition Notes Start: 02/20/21 09:01 Freq: Status: Active Protocol: Document 02/27/21 13:07 MARGIE (Rec: 02/27/21 13:08 MARGIE [id number]) Nutrition Notes Need for Assessment generated from: LOS Initial or Follow up Brief Note Current Diagnosis Heart Failure Other Pertinent Diagnosis COVID PUI Current Diet Cardiac Subjective/Other Information Screen for LOS. Pt eating 100% of meals. Pt reports no questions or concerns about nutrition or her diet. Nutrition Intervention Revisit per MD consult or patient Sign Off request:
[2021-02-28 05:21] LABS: Blood Urea Nitrogen 13 mg/dL (7-17); Hemolysis Index 30
[2021-02-28 05:59] LABS: BUN/Creatinine Ratio 19
[2021-02-28] MEDS: hydrALAZINE 25 MG TAB PO SCH ×3 (06:57→21:58)
[2021-02-28] MEDS: HEPARIN 5,000 UNIT/1 ML VIAL SUB-Q SCH ×3 (06:58→22:05)
[2021-02-28] MEDS: FUROSEMIDE 40 MG TAB PO SCH ×2 (06:58→18:31)
[2021-02-28] MEDS: IBUPROFEN 600 MG TAB PO PRN ×2 (09:35→18:30)
[2021-02-28] MEDS: carvediloL 12.5 MG TAB PO SCH ×2 (09:35→21:58)
--- NOTE | 2021-02-28 15:00 | Progress Note ---
Assessment and Plan Assessment and plan: --COVID-19 test negative --Acute respiratory failure with hypoxia Current Visit: Yes Status: Acute Hyoiventilation sec to Morbid obesity Pickwickian syndrome, STEPHEN, OHS, Oxygen titrate O2 sats to more than 90% CPAP/BiPAP at night and as needed during daytime Patient need outpatient sleep studies, at service desk lead office --Morbid obesity; BMI 79.2 Current Visit: Yes Status: Acute Lifestyle modification encouraged. Dietary modification Exercise as tolerated and weight reduction when medically stable Bariatric surgery as outpatient and follow up with Dr Merino suggested. --Obstructive sleep apnea; Current Visit: Yes Status: Acute Patient needs outpatient sleep study CPAP/BiPAP at night and daytime as needed. --OHS; obesity hypoventilation syndrome Current Visit: Yes Status: Acute Oxygen supplementation, titrate O2 sats to more than 90%, CPAP BiPAP as needed Patient needs to follow-up with service desk lead regularly -- Acute heart failure/diastolic CHF Current Visit: Yes Status: Acute EF 55 to 60 percent, Cont Diuresis Input output monitoring, low-sodium, fluid restriction strongly advised to comply with medications --DVT prophylaxis Current Visit: Yes Status: Acute Patient placed on subcutaneous Lovenox. --Full code status Current Visit: Yes Status: Acute Patient is a full code. We will closely monitor the patient and adjust management as needed Plan of care reviewed with the patient and her nurse She has some questions answered all of them PT evaluation noted, no needs at discharge Home oxygen evaluation Possible discharge in 1 to 2 days if stable Brief history: 35-year-old -[place] female with no significant past medical history except morbid obesity with a BMI of 79 presenting to the emergency room today complaining of shortness of breath which has been ongoing for about 1 week. Shortness of breath is said to be worse on exertion and while lying down flat. She has been having some lower extremity swelling. She denies any chest pain, no fever or chills, no headache or dizziness, no diaphoresis. Patient denies any nausea vomiting, no abdominal pain, no hematuria or dysuria. She has had some cough which is nonproductive. 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 She denies any recent travel. Denies any contact with anyone with COVID-19. Upon arrival in the emergency room today she was hypoxic with oxygen saturation of about 89% upon arrival in the emergency room. Work-up in the emergency room reveals elevated BNP, elevated D-dimer. Patient was too large for the scan machine for VQ scan and there was no adequate access to be scheduled for CT angiogram. Chest x-ray was significant for possible pulmonary edema. Patient has been admitted with respiratory failure, and hypertensive emergency and new onset CHF. She will also be ruled out for COVID-19. 02/20/21 acute respiratory failure, On Bipap Hypercapneic bcoxz of noncompliance with Bipap 02/21; mild improvement 02/22/21;Covid negative,On 10 liters [place] o2 02/23;SOB present but better, On 8 liters [place] o2 02/24; patient needs outpatient sleep study, PFTs upon discharge Also needs bariatric surgical evaluation for weight reduction program Home oxygen evaluation, home CPAP BiPAP evaluation prior to discharge 02/25; home O2 evaluation, resting room air, ambulatory in the room room air O2 sats 02/26; patient is morbidly obese BMI 79.2 02/27; home oxygen evaluation, PT evaluation Patient need outpatient sleep study to evaluate for obstructive sleep apnea and for CPAP/BiPAP at home DC planning per case management, to assist with resources 02/28 DC planning per case management Home oxygen evaluation, PT evaluation-no DC needs History Interval history: I have seen and examined the patient at the bedside Patient feels slightly better anxious to go home Vital signs noted Hospitalist Physical - Constitutional Vitals: Temp Pulse Resp BP Pulse Ox 98.7 F 83 18 86/33 100 02/28/21 11:26 02/28/21 11:26 02/28/21 11:26 02/28/21 11:26 02/28/21 11:26 General appearance: Present: no acute distress, well-nourished, obese (Morbidly obese BMI 79.2) - EENT Eyes: Present: PERRL, EOM intact - Neck Neck: Present: supple, normal ROM - Respiratory Respiratory effort: normal Respiratory: bilateral: diminished, rhonchi, negative: rales, wheezing - Cardiovascular Rhythm: regular Heart Sounds: Present: S1 & S2 - Extremities Extremities: no ischemia, No edema - Abdominal General gastrointestinal: soft, non-tender, non-distended, normal bowel sounds - Integumentary Integumentary: Present: clear, warm - Psychiatric Psychiatric: appropriate mood/affect, cooperative - Neurologic Neurologic: moves all extremities HEART Score - HEART Score Troponin: Troponin T < 0.010 ng/mL (0.00-0.029) 02/21/21 08:14 Results - Labs CBC & Chem 7: 02/27/21 05:38 02/28/21 04:46 Labs: Laboratory Last Values WBC 8.3 K/mm3 (4.5-11.0) 02/27/21 05:38 RBC 5.33 M/mm3 (3.65-5.03) H 02/27/21 05:38 Hgb 9.1 gm/dl (10.1-14.3) L 02/27/21 05:38 Hct 32.9 % (30.3-42.9) 02/27/21 05:38 MCV 62 fl (79-97) L 02/27/21 05:38 MCH 17 pg (28-32) L 02/27/21 05:38 MCHC 28 % (30-34) L 02/27/21 05:38 RDW 20.8 % (13.2-15.2) H 02/27/21 05:38 Plt Count 333 K/mm3 (140-440) 02/27/21 05:38 Lymph % (Auto) 12.3 % (13.4-35.0) L 02/21/21 08:14 [place] % (Auto) [employer] 02/27/21 05:38 Eos % (Auto) 0.2 % (0.0-4.3) 02/21/21 08:14 Baso % (Auto) 0.4 % (0.0-1.8) 02/21/21 08:14 Lymph # (Auto) 1.5 K/mm3 (1.2-5.4) 02/21/21 08:14 [place] # (Auto) 1.4 K/mm3 (0.0-0.8) H 02/21/21 08:14 Eos # (Auto) 0.0 K/mm3 (0.0-0.4) 02/21/21 08:14 Baso # (Auto) 0.0 K/mm3 (0.0-0.1) 02/21/21 08:14 Add Manual Diff Complete 02/27/21 05:38 Total Counted 100 02/27/21 05:38 Seg Neutrophils % 74.8 % (40.0-70.0) H 02/21/21 08:14 Seg Neuts % (Manual) 64.0 % (40.0-70.0) 02/27/21 05:38 Lymphocytes % (Manual) 11.0 % (13.4-35.0) L 02/27/21 05:38 Monocytes % (Manual) 17.0 % (0.0-7.3) H 02/27/21 05:38 Eosinophils % (Manual) 6.0 % (0.0-4.3) H 02/27/21 05:38 Basophils % (Manual) 2.0 % (0.0-1.8) H 02/27/21 05:38 Nucleated RBC % Not Reportable 02/27/21 05:38 Seg Neutrophils # 8.8 K/mm3 (1.8-7.7) H 02/21/21 08:14 Seg Neutrophils # Man 5.3 K/mm3 (1.8-7.7) 02/27/21 05:38 Band Neutrophils # 0.0 K/mm3 02/27/21 05:38 Lymphocytes # (Manual) 0.9 K/mm3 (1.2-5.4) L 02/27/21 05:38 Abs React Lymphs (Man) 0.0 K/mm3 02/27/21 05:38 Monocytes # (Manual) 1.4 K/mm3 (0.0-0.8) H 02/27/21 05:38 Eosinophils # (Manual) 0.5 K/mm3 (0.0-0.4) H 02/27/21 05:38 Basophils # (Manual) 0.2 K/mm3 (0.0-0.1) H 02/27/21 05:38 Metamyelocytes # 0.0 K/mm3 02/27/21 05:38 Myelocytes # 0.0 K/mm3 02/27/21 05:38 Promyelocytes # 0.0 K/mm3 02/27/21 05:38 Blast Cells # 0.0 K/mm3 02/27/21 05:38 WBC Morphology Not Reportable 02/27/21 05:38 Hypersegmented Neuts Not Reportable 02/27/21 05:38 Hyposegmented Neuts Not Reportable 02/27/21 05:38 Hypogranular Neuts Not Reportable 02/27/21 05:38 Smudge Cells Not Reportable 02/27/21 05:38 Toxic Granulation Not Reportable 02/27/21 05:38 Toxic Vacuolation Not Reportable 02/27/21 05:38 Dohle Bodies Not Reportable 02/27/21 05:38 Pelger-Huet Anomaly Not Reportable 02/27/21 05:38 Adele Rods Not Reportable 02/27/21 05:38 Platelet Estimate Cons 02/27/21 05:38 Clumped Platelets Not Reportable 02/27/21 05:38 Plt Clumps, EDTA Not Reportable 02/27/21 05:38 Large Platelets Few 02/27/21 05:38 Giant Platelets Not Reportable 02/27/21 05:38 Platelet Satelliting Not Reportable 02/27/21 05:38 Plt Morphology Comment Not Reportable 02/27/21 05:38 RBC Morphology Not Reportable 02/27/21 05:38 Dimorphic RBCs Not Reportable 02/27/21 05:38 Polychromasia Not Reportable 02/27/21 05:38 Hypochromasia 3+ 02/27/21 05:38 Poikilocytosis Not Reportable 02/27/21 05:38 Anisocytosis 1+ 02/27/21 05:38 Microcytosis 2+ 02/27/21 05:38 Macrocytosis Not Reportable 02/27/21 05:38 Spherocytes Not Reportable 02/27/21 05:38 Pappenheimer Bodies Not Reportable 02/27/21 05:38 Sickle Cells Not Reportable 02/27/21 05:38 Target Cells Not Reportable 02/27/21 05:38 Tear Drop Cells Not Reportable 02/27/21 05:38 Ovalocytes Not Reportable 02/27/21 05:38 Helmet Cells Not Reportable 02/27/21 05:38 [place] Bodies Not Reportable 02/27/21 05:38 [place] Rings Not Reportable 02/27/21 05:38 [place] Cells Not Reportable 02/27/21 05:38 Bite Cells Not Reportable 02/27/21 05:38 Crenated Cell Not Reportable 02/27/21 05:38 Elliptocytes Not Reportable 02/27/21 05:38 Acanthocytes (Spur) Not Reportable 02/27/21 05:38 Rouleaux Not Reportable 02/27/21 05:38 Hemoglobin C Crystals Not Reportable 02/27/21 05:38 Schistocytes Not Reportable 02/27/21 05:38 Malaria parasites Not Reportable 02/27/21 05:38 Mike Bodies Not Reportable 02/27/21 05:38 Hem Pathologist Commnt No 02/27/21 05:38 PT 13.1 Sec. (12.2-14.9) 02/21/21 08:14 INR 1.01 (0.87-1.13) 02/21/21 08:14 D-Dimer 277.95 ng/mlDDU (0-234) H 02/19/21 22:26 ABG pH 7.237 pH Units (7.350-7.450) L 02/21/21 05:30 ABG pCO2 95.9 mm Hg 02/21/21 05:30 ABG pO2 82.9 mm Hg (80.0-90.0) 02/21/21 05:30 ABG HCO3 39.8 mmol/L (20.0-26.0) H 02/21/21 05:30 ABG O2 Saturation 95.0 % (95.0-99.0) 02/21/21 05:30 ABG O2 Content 19.9 (0.0-44) 02/21/21 05:30 ABG Base Excess 8.1 mmol/L (-2.0-3.0) H 02/21/21 05:30 ABG Hemoglobin 9.6 gm/dl (12.0-16.0) L 02/21/21 05:30 ABG Carboxyhemoglobin 2.3 % (0.0-5.0) 02/21/21 05:30 ABG Methemoglobin 0.5 % (0.0-1.5) 02/21/21 05:30 Oxyhemoglobin 92.3 % (95.0-99.0) L 02/21/21 05:30 FiO2 21 % 02/21/21 05:30 Sodium 137 mmol/L (137-145) 02/28/21 04:46 Potassium 4.7 mmol/L (3.6-5.0) 02/28/21 04:46 Chloride 90.1 mmol/L (98-107) L 02/28/21 04:46 Carbon Dioxide 46 mmol/L (22-30) H* 02/28/21 04:46 Anion Gap 6 mmol/L 02/28/21 04:46 BUN 13 mg/dL (7-17) 02/28/21 04:46 Creatinine 0.7 mg/dL (0.6-1.2) 02/28/21 04:46 Estimated GFR > 60 ml/min 02/28/21 04:46 BUN/Creatinine Ratio 19 % 02/28/21 04:46 Glucose 108 mg/dL (65-100) H 02/28/21 04:46 POC Glucose 91 mg/dL (70-105) 02/26/21 07:36 Hemoglobin A1c 5.6 % (4-6) 02/21/21 08:14 Calcium 9.0 mg/dL (8.4-10.2) 02/28/21 04:46 Magnesium 2.00 mg/dL (1.7-2.3) 02/25/21 07:42 Ferritin 11.9 ng/mL (10.0-200.0) 02/19/21 22:26 Total Bilirubin 0.90 mg/dL (0.1-1.2) 02/19/21 22:19 AST 21 units/L (5-40) 02/19/21 22:19 ALT 23 units/L (7-56) 02/19/21 22:19 Alkaline Phosphatase 79 units/L (35-129) 02/19/21 22:19 Lactate Dehydrogenase 343 units/L (91-180) H 02/19/21 22:26 Troponin T < 0.010 ng/mL (0.00-0.029) 02/21/21 08:14 C-Reactive Protein 1.20 mg/dL (0.00-1.30) 02/19/21 22:26 NT-Pro-B Natriuret Pep 2354 pg/mL (0-450) H 02/19/21 22:26 Total Protein 6.9 g/dL (6.3-8.2) 02/19/21 22:19 Albumin 4.0 g/dL (3.9-5) 02/19/21 22:19 Albumin/Globulin Ratio 1.4 % 02/19/21 22:19 Cholesterol 147 mg/dL (50-199) 02/21/21 08:14 Procalcitonin < 0.05 ng/mL (<0.15) 02/19/21 22:26 Urine Color Yellow (Yellow) 02/20/21 04:31 Urine Turbidity Slightly-cloudy (Clear) 02/20/21 04:31 Urine pH 5.0 (5.0-7.0) 02/20/21 04:31 Ur Specific [place] 1.009 (1.003-1.030) 02/20/21 04:31 Urine Protein 100 mg/dl mg/dL (Negative) 02/20/21 04:31 Urine Glucose (UA) Neg mg/dL (Negative) 02/20/21 04:31 Urine Ketones Neg mg/dL (Negative) 02/20/21 04:31 Urine Blood Neg (Negative) 02/20/21 04:31 Urine Nitrite Neg (Negative) 02/20/21 04:31 Urine Bilirubin Neg (Negative) 02/20/21 04:31 Urine Urobilinogen < 2.0 mg/dL (<2.0) 02/20/21 04:31 Ur Leukocyte Esterase Neg (Negative) 02/20/21 04:31 Urine WBC (Auto) 1.0 /HPF (0.0-6.0) 02/20/21 04:31 Urine RBC (Auto) 2.0 /HPF (0.0-6.0) 02/20/21 04:31 U Epithel Cells (Auto) < 1.0 /HPF (0-13.0) 02/20/21 04:31 Urine Bacteria (Auto) 1+ /HPF (Negative) 02/20/21 04:31 Urine HCG, Qual Negative (Negative) 02/20/21 04:31 Coronavirus (PCR) Negative (Negative) 02/20/21 Unknown [place]mato/IV: Voiding Method Toilet Active Medications - Current Medications Current Medications: Generic Name Dose Route Start Last Admin Trade Name Freq PRN Reason Stop Dose Admin Acetaminophen 650 mg 02/20/21 02:04 02/27/21 01:30 Acetaminophen 325 Mg Tab PO 650 mg Q4H PRN Administration Pain MILD(1-3)/Fever >100.5/LOCO Albuterol 2.5 mg 02/20/21 07:39 Albuterol 2.5 Mg/3 Ml Nebu IH TIDRT PRN Shortness Of Breath Carvedilol 12.5 mg 02/22/21 22:00 02/28/21 09:35 Carvedilol 12.5 Mg Tab PO 12.5 mg BID VERONICA Administration Furosemide 40 mg 02/26/21 18:00 02/28/21 06:58 Furosemide 40 Mg Tab PO 40 mg 0600,1800 VERONICA Administration Heparin Sodium (Porcine) 5,000 unit 02/21/21 14:00 02/28/21 06:58 Heparin 5,000 Unit/1 Ml Vial SUB-Q 5,000 unit Q8HR VERONICA Administration Hydralazine HCl 25 mg 02/20/21 22:00 02/28/21 06:57 Hydralazine 25 Mg Tab PO 25 mg Q8HR VERONICA Administration Ibuprofen 600 mg 02/20/21 20:17 02/28/21 09:35 Ibuprofen 600 Mg Tab PO 600 mg Q6H PRN Administration Pain , Severe (7-10) Magnesium Hydroxide 30 ml 02/20/21 02:04 02/22/21 13:47 Magnesium Hydroxide (Mom) Oral Liqd Udc PO 30 ml Q4H PRN Administration Constipation Morphine Sulfate 2 mg 02/20/21 02:04 Morphine 2 Mg/1 Ml Inj IV Q5MIN PRN Chest Pain unrelieved by NTG Ondansetron HCl 4 mg 02/20/21 02:04 Ondansetron 4 Mg/2 Ml Inj IV Q8H PRN Nausea And Vomiting Senna/Docusate Sodium 2 tab 02/22/21 17:43 02/24/21 21:20 Sennosides/Docusate Sodium 8.6/50 Mg Tab PO 2 tab Q12H PRN Administration Laxative Effect Sodium Chloride 10 ml 02/20/21 10:00 02/28/21 09:35 Sodium Chloride 0.9% 10 Ml Flush Syringe IV 10 ml BID VERONICA Administration Sodium Chloride 10 ml 02/20/21 02:04 Sodium Chloride 0.9% 10 Ml Flush Syringe IV PRN PRN LINE FLUSH Nutrition/Malnutrition Assess - Dietary Evaluation Nutrition/Malnutrition Findings: Nutrition Notes Start: 02/20/21 09:01 Freq: Status: Active Protocol: Document 02/27/21 13:07 MARGIE (Rec: 02/27/21 13:08 MARGIE [id number]) Nutrition Notes Need for Assessment generated from: LOS Initial or Follow up Brief Note Current Diagnosis Heart Failure Other Pertinent Diagnosis COVID PUI Current Diet Cardiac Subjective/Other Information Screen for LOS. Pt eating 100% of meals. Pt reports no questions or concerns about nutrition or her diet. Nutrition Intervention Revisit per MD consult or patient Sign Off request:
--- NOTE | 2021-02-28 19:39 | Progress Note ---
Assessment and Plan Reduce Lasix to once daily orally. - Patient Problems (1) Acute respiratory failure with hypoxia Current Visit: Yes Status: Acute (2) Acute heart failure with preserved ejection fraction (HFpEF) Current Visit: Yes Status: Acute (3) STEPHEN (obstructive sleep apnea) Current Visit: Yes Status: Chronic (4) Moderate to severe pulmonary hypertension Current Visit: Yes Status: Chronic (5) Hypertensive heart disease Current Visit: Yes Status: Chronic Qualifiers: Heart failure presence: with heart failure Heart failure chronicity: acute (6) Hypertension Current Visit: Yes Status: Chronic Qualifiers: Hypertension type: essential hypertension Qualified Code(s): I10 - Essential (primary) hypertension Subjective Date of service: 02/28/21 Principal diagnosis: Acute respiratory failure, Acute HFpEF, STEPHEN, morbid obesity Interval history: He is less short of breath. In normal sinus rhythm. Objective Vital Signs Temp Pulse Resp Resp BP Pulse Ox 02/28/21 11:26 98.7 F 83 18 86/33 100 02/28/21 06:57 68 118/68 02/28/21 04:59 98.3 F 84 18 128/72 100 02/27/21 23:42 98 02/27/21 23:18 98.7 F 79 20 92/47 97 02/27/21 22:00 68 20 128/68 02/27/21 21:00 20 - Physical Examination General: No Apparent Distress HEENT: Positive: EOMI, Normocephaly, Mucus Membranes Moist Neck: Positive: neck supple, trachea midline Cardiac: Positive: Reg Rate and Rhythm, S1/S2 Lungs: Positive: clear to auscultation Neuro: Positive: Grossly Intact Abdomen: Positive: Unremarkable, Soft. Negative: Tender Skin: Negative: Rash, Wound Musculoskeletal: No Pain, Normal Range of Motion Extremities: Present: +1 Edema (With changes of chronic venous stasis in both legs) - Labs and Meds Comprehensive Metabolic Panel 02/28/21 Range/Units 04:46 Sodium 137 (137-145) mmol/L Potassium 4.7 (3.6-5.0) mmol/L Chloride 90.1 L (98-107) mmol/L Carbon Dioxide 46 H* (22-30) mmol/L BUN 13 (7-17) mg/dL Creatinine 0.7 (0.6-1.2) mg/dL Glucose 108 H (65-100) mg/dL Calcium 9.0 (8.4-10.2) mg/dL - Imaging and Cardiology Echo: report reviewed (Echo reviewed (02/20/21): EF 55-60%. Severe LVH. Flattened septum with RV volume and pressure overload. RV moderately dilated. RA mildly dilated. ) - Telemetry EKG Rhythm: Sinus Rhythm
[2021-03-01] MEDS: HEPARIN 5,000 UNIT/1 ML VIAL SUB-Q SCH ×3 (05:25→21:03)
[2021-03-01] MEDS: IBUPROFEN 600 MG TAB PO PRN ×2 (05:30→21:03)
[2021-03-01] MEDS: hydrALAZINE 25 MG TAB PO SCH ×2 (05:48→14:31)
[2021-03-01] MEDS: carvediloL 12.5 MG TAB PO SCH ×2 (10:25→21:03)
[2021-03-01] MEDS: FUROSEMIDE 40 MG TAB PO SCH (10:26)
--- NOTE | 2021-03-01 16:23 | Progress Note ---
Assessment and Plan Cardiac status appears to be stabilizing. - Patient Problems (1) Acute respiratory failure with hypoxia Current Visit: Yes Status: Acute (2) Acute heart failure with preserved ejection fraction (HFpEF) Current Visit: Yes Status: Acute (3) STEPHEN (obstructive sleep apnea) Current Visit: Yes Status: Chronic (4) Moderate to severe pulmonary hypertension Current Visit: Yes Status: Chronic (5) Hypertensive heart disease Current Visit: Yes Status: Chronic Qualifiers: Heart failure presence: with heart failure Heart failure chronicity: acute (6) Hypertension Current Visit: Yes Status: Chronic Qualifiers: Hypertension type: essential hypertension Qualified Code(s): I10 - Essential (primary) hypertension Subjective Date of service: 03/01/21 Principal diagnosis: Acute respiratory failure, Acute HFpEF, STEPHEN, morbid obesity Interval history: No complaints. In normal sinus rhythm. Objective Vital Signs Temp Pulse Resp BP BP Pulse Ox 03/01/21 14:31 84 112/55 03/01/21 10:25 83 116/50 03/01/21 10:00 96 03/01/21 05:36 98.9 F 80 20 127/54 98 02/28/21 21:36 99 02/28/21 21:00 97.8 F 80 102/48 97 - Physical Examination General: No Apparent Distress HEENT: Positive: EOMI, Normocephaly, Mucus Membranes Moist Neck: Positive: neck supple, trachea midline Cardiac: Positive: Reg Rate and Rhythm, S1/S2 Lungs: Positive: clear to auscultation Neuro: Positive: Grossly Intact Abdomen: Positive: Unremarkable, Soft. Negative: Tender Skin: Negative: Rash, Wound Musculoskeletal: No Pain, Normal Range of Motion Extremities: Absent: edema - Imaging and Cardiology Echo: report reviewed (Echo reviewed (02/20/21): EF 55-60%. Severe LVH. Flattened septum with RV volume and pressure overload. RV moderately dilated. RA mildly dilated. ) - Telemetry EKG Rhythm: Sinus Rhythm
--- NOTE | 2021-03-01 18:48 | Progress Note ---
Assessment and Plan Assessment and plan: --COVID-19 test negative --Acute respiratory failure with hypoxia Current Visit: Yes Status: Acute Hyoiventilation sec to Morbid obesity Pickwickian syndrome, STEPHEN, OHS, Oxygen titrate O2 sats to more than 90% CPAP/BiPAP at night and as needed during daytime Patient need outpatient sleep studies, at nuclear weapons specialist office And is requiring 3 L of nasal cannula this morning --Morbid obesity; BMI 79.2 Current Visit: Yes Status: Acute Lifestyle modification encouraged. Dietary modification Exercise as tolerated and weight reduction when medically stable Bariatric surgery as outpatient and follow up with Dr Merino suggested. --Obstructive sleep apnea; Current Visit: Yes Status: Acute Patient needs outpatient sleep study CPAP/BiPAP at night and daytime as needed. --OHS; obesity hypoventilation syndrome Current Visit: Yes Status: Acute Oxygen supplementation, titrate O2 sats to more than 90%, CPAP BiPAP as needed Patient needs to follow-up with nuclear weapons specialist regularly -- Acute heart failure/diastolic CHF Current Visit: Yes Status: Acute EF 55 to 60 percent, Cont Diuresis Input output monitoring, low-sodium, fluid restriction strongly advised to comply with medications --DVT prophylaxis Current Visit: Yes Status: Acute Patient placed on subcutaneous Lovenox. --Full code status Current Visit: Yes Status: Acute Patient is a full code. We will closely monitor the patient and adjust management as needed Plan of care reviewed with the patient and her nurse She has some questions answered all of them PT evaluation noted, no needs at discharge Home oxygen evaluation Possible discharge in 1 to 2 days if stable Brief history: 35-year-old -Latvian female with no significant past medical history except morbid obesity with a BMI of 79 presenting to the emergency room today complaining of shortness of breath which has been ongoing for about 1 week. Shortness of breath is said to be worse on exertion and while lying down flat. She has been having some lower extremity swelling. She denies any chest pain, no fever or chills, no headache or dizziness, no diaphoresis. Patient denies any nausea vomiting, no abdominal pain, no hematuria or dysuria. She has had some cough which is nonproductive. 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 She denies any recent travel. Denies any contact with anyone with COVID-19. Upon arrival in the emergency room today she was hypoxic with oxygen saturation of about 89% upon arrival in the emergency room. Work-up in the emergency room reveals elevated BNP, elevated D-dimer. Patient was too large for the scan machine for VQ scan and there was no adequate access to be scheduled for CT angiogram. Chest x-ray was significant for possible pulmonary edema. Patient has been admitted with respiratory failure, and hypertensive emergency and new onset CHF. She will also be ruled out for COVID-19. 02/20/21 acute respiratory failure, On Bipap Hypercapneic bcoxz of noncompliance with Bipap 02/21; mild improvement 02/22/21;Covid negative,On 10 liters N[place] o2 02/23;SOB present but better, On 8 liters [place] o2 02/24; patient needs outpatient sleep study, PFTs upon discharge Also needs bariatric surgical evaluation for weight reduction program Home oxygen evaluation, home CPAP BiPAP evaluation prior to discharge 02/25; home O2 evaluation, resting room air, ambulatory in the room room air O2 sats 02/26; patient is morbidly obese BMI 79.2 02/27; home oxygen evaluation, PT evaluation Patient need outpatient sleep study to evaluate for obstructive sleep apnea and for CPAP/BiPAP at home DC planning per case management, to assist with resources 02/28 DC planning per case management Home oxygen evaluation, PT evaluation-no DC needs 03/01; patient refused BiPAP, saturating well on 3 L nasal cannula oxygen 96% Home O2 evaluation, possible discharge home tomorrow Disposition per pulmonary History Interval history: I have seen and examined the patient this afternoon at the bedside Patient's chart and medications tests and reports reviewed Patient feels slightly better, requiring 3 L of nasal cannula oxygen Mild intermittent shortness of breath Denies chest pain Vital signs noted Hospitalist Physical - Constitutional Vitals: Temp Pulse Resp BP Pulse Ox 98.9 F 84 20 112/55 96 03/01/21 05:36 03/01/21 14:31 03/01/21 05:36 03/01/21 14:31 03/01/21 10:00 General appearance: Present: no acute distress, well-nourished, obese (Morbidly obese BMI 79.2) - EENT Eyes: Present: PERRL, EOM intact - Neck Neck: Present: supple, normal ROM - Respiratory Respiratory effort: normal Respiratory: bilateral: diminished, negative: rales, rhonchi, wheezing - Cardiovascular Rhythm: regular Heart Sounds: Present: S1 & S2 - Extremities Extremities: no ischemia, No edema - Abdominal General gastrointestinal: soft, non-tender, non-distended, normal bowel sounds - Integumentary Integumentary: Present: clear, warm - Psychiatric Psychiatric: appropriate mood/affect, cooperative - Neurologic Neurologic: moves all extremities HEART Score - HEART Score Troponin: Troponin T < 0.010 ng/mL (0.00-0.029) 02/21/21 08:14 Results - Labs CBC & Chem 7: 02/27/21 05:38 02/28/21 04:46 Labs: Laboratory Last Values WBC 8.3 K/mm3 (4.5-11.0) 02/27/21 05:38 RBC 5.33 M/mm3 (3.65-5.03) H 02/27/21 05:38 Hgb 9.1 gm/dl (10.1-14.3) L 02/27/21 05:38 Hct 32.9 % (30.3-42.9) 02/27/21 05:38 MCV 62 fl (79-97) L 02/27/21 05:38 MCH 17 pg (28-32) L 02/27/21 05:38 MCHC 28 % (30-34) L 02/27/21 05:38 RDW 20.8 % (13.2-15.2) H 02/27/21 05:38 Plt Count 333 K/mm3 (140-440) 02/27/21 05:38 Lymph % (Auto) 12.3 % (13.4-35.0) L 02/21/21 08:14 [place] % (Auto) Art Framing Manager 02/27/21 05:38 Eos % (Auto) 0.2 % (0.0-4.3) 02/21/21 08:14 Baso % (Auto) 0.4 % (0.0-1.8) 02/21/21 08:14 Lymph # (Auto) 1.5 K/mm3 (1.2-5.4) 02/21/21 08:14 [place] # (Auto) 1.4 K/mm3 (0.0-0.8) H 02/21/21 08:14 Eos # (Auto) 0.0 K/mm3 (0.0-0.4) 02/21/21 08:14 Baso # (Auto) 0.0 K/mm3 (0.0-0.1) 02/21/21 08:14 Add Manual Diff Complete 02/27/21 05:38 Total Counted 100 02/27/21 05:38 Seg Neutrophils % 74.8 % (40.0-70.0) H 02/21/21 08:14 Seg Neuts % (Manual) 64.0 % (40.0-70.0) 02/27/21 05:38 Lymphocytes % (Manual) 11.0 % (13.4-35.0) L 02/27/21 05:38 Monocytes % (Manual) 17.0 % (0.0-7.3) H 02/27/21 05:38 Eosinophils % (Manual) 6.0 % (0.0-4.3) H 02/27/21 05:38 Basophils % (Manual) 2.0 % (0.0-1.8) H 02/27/21 05:38 Nucleated RBC % Not Reportable 02/27/21 05:38 Seg Neutrophils # 8.8 K/mm3 (1.8-7.7) H 02/21/21 08:14 Seg Neutrophils # Man 5.3 K/mm3 (1.8-7.7) 02/27/21 05:38 Band Neutrophils # 0.0 K/mm3 02/27/21 05:38 Lymphocytes # (Manual) 0.9 K/mm3 (1.2-5.4) L 02/27/21 05:38 Abs React Lymphs (Man) 0.0 K/mm3 02/27/21 05:38 Monocytes # (Manual) 1.4 K/mm3 (0.0-0.8) H 02/27/21 05:38 Eosinophils # (Manual) 0.5 K/mm3 (0.0-0.4) H 02/27/21 05:38 Basophils # (Manual) 0.2 K/mm3 (0.0-0.1) H 02/27/21 05:38 Metamyelocytes # 0.0 K/mm3 02/27/21 05:38 Myelocytes # 0.0 K/mm3 02/27/21 05:38 Promyelocytes # 0.0 K/mm3 02/27/21 05:38 Blast Cells # 0.0 K/mm3 02/27/21 05:38 WBC Morphology Not Reportable 02/27/21 05:38 Hypersegmented Neuts Not Reportable 02/27/21 05:38 Hyposegmented Neuts Not Reportable 02/27/21 05:38 Hypogranular Neuts Not Reportable 02/27/21 05:38 Smudge Cells Not Reportable 02/27/21 05:38 Toxic Granulation Not Reportable 02/27/21 05:38 Toxic Vacuolation Not Reportable 02/27/21 05:38 Dohle Bodies Not Reportable 02/27/21 05:38 Pelger-Huet Anomaly Not Reportable 02/27/21 05:38 Adele Rods Not Reportable 02/27/21 05:38 Platelet Estimate Cons 02/27/21 05:38 Clumped Platelets Not Reportable 02/27/21 05:38 Plt Clumps, EDTA Not Reportable 02/27/21 05:38 Large Platelets Few 02/27/21 05:38 Giant Platelets Not Reportable 02/27/21 05:38 Platelet Satelliting Not Reportable 02/27/21 05:38 Plt Morphology Comment Not Reportable 02/27/21 05:38 RBC Morphology Not Reportable 02/27/21 05:38 Dimorphic RBCs Not Reportable 02/27/21 05:38 Polychromasia Not Reportable 02/27/21 05:38 Hypochromasia 3+ 02/27/21 05:38 Poikilocytosis Not Reportable 02/27/21 05:38 Anisocytosis 1+ 02/27/21 05:38 Microcytosis 2+ 02/27/21 05:38 Macrocytosis Not Reportable 02/27/21 05:38 Spherocytes Not Reportable 02/27/21 05:38 Pappenheimer Bodies Not Reportable 02/27/21 05:38 Sickle Cells Not Reportable 02/27/21 05:38 Target Cells Not Reportable 02/27/21 05:38 Tear Drop Cells Not Reportable 02/27/21 05:38 Ovalocytes Not Reportable 02/27/21 05:38 Helmet Cells Not Reportable 02/27/21 05:38 [place] Bodies Not Reportable 02/27/21 05:38 [place] Rings Not Reportable 02/27/21 05:38 [place] Cells Not Reportable 02/27/21 05:38 Bite Cells Not Reportable 02/27/21 05:38 Crenated Cell Not Reportable 02/27/21 05:38 Elliptocytes Not Reportable 02/27/21 05:38 Acanthocytes (Spur) Not Reportable 02/27/21 05:38 Rouleaux Not Reportable 02/27/21 05:38 Hemoglobin C Crystals Not Reportable 02/27/21 05:38 Schistocytes Not Reportable 02/27/21 05:38 Malaria parasites Not Reportable 02/27/21 05:38 Mike Bodies Not Reportable 02/27/21 05:38 Hem Pathologist Commnt No 02/27/21 05:38 PT 13.1 Sec. (12.2-14.9) 02/21/21 08:14 INR 1.01 (0.87-1.13) 02/21/21 08:14 D-Dimer 277.95 ng/mlDDU (0-234) H 02/19/21 22:26 ABG pH 7.237 pH Units (7.350-7.450) L 02/21/21 05:30 ABG pCO2 95.9 mm Hg 02/21/21 05:30 ABG pO2 82.9 mm Hg (80.0-90.0) 02/21/21 05:30 ABG HCO3 39.8 mmol/L (20.0-26.0) H 02/21/21 05:30 ABG O2 Saturation 95.0 % (95.0-99.0) 02/21/21 05:30 ABG O2 Content 19.9 (0.0-44) 02/21/21 05:30 ABG Base Excess 8.1 mmol/L (-2.0-3.0) H 02/21/21 05:30 ABG Hemoglobin 9.6 gm/dl (12.0-16.0) L 02/21/21 05:30 ABG Carboxyhemoglobin 2.3 % (0.0-5.0) 02/21/21 05:30 ABG Methemoglobin 0.5 % (0.0-1.5) 02/21/21 05:30 Oxyhemoglobin 92.3 % (95.0-99.0) L 02/21/21 05:30 FiO2 21 % 02/21/21 05:30 Sodium 137 mmol/L (137-145) 02/28/21 04:46 Potassium 4.7 mmol/L (3.6-5.0) 02/28/21 04:46 Chloride 90.1 mmol/L (98-107) L 02/28/21 04:46 Carbon Dioxide 46 mmol/L (22-30) H* 02/28/21 04:46 Anion Gap 6 mmol/L 02/28/21 04:46 BUN 13 mg/dL (7-17) 02/28/21 04:46 Creatinine 0.7 mg/dL (0.6-1.2) 02/28/21 04:46 Estimated GFR > 60 ml/min 02/28/21 04:46 BUN/Creatinine Ratio 19 % 02/28/21 04:46 Glucose 108 mg/dL (65-100) H 02/28/21 04:46 POC Glucose 91 mg/dL (70-105) 02/26/21 07:36 Hemoglobin A1c 5.6 % (4-6) 02/21/21 08:14 Calcium 9.0 mg/dL (8.4-10.2) 02/28/21 04:46 Magnesium 2.00 mg/dL (1.7-2.3) 02/25/21 07:42 Ferritin 11.9 ng/mL (10.0-200.0) 02/19/21 22:26 Total Bilirubin 0.90 mg/dL (0.1-1.2) 02/19/21 22:19 AST 21 units/L (5-40) 02/19/21 22:19 ALT 23 units/L (7-56) 02/19/21 22:19 Alkaline Phosphatase 79 units/L (35-129) 02/19/21 22:19 Lactate Dehydrogenase 343 units/L (91-180) H 02/19/21 22:26 Troponin T < 0.010 ng/mL (0.00-0.029) 02/21/21 08:14 C-Reactive Protein 1.20 mg/dL (0.00-1.30) 02/19/21 22:26 NT-Pro-B Natriuret Pep 2354 pg/mL (0-450) H 02/19/21 22:26 Total Protein 6.9 g/dL (6.3-8.2) 02/19/21 22: Albumin 4.0 g/dL (3.9-5) 02/19/21 22:19 Albumin/Globulin Ratio 1.4 % 02/19/21 22:19 Cholesterol 147 mg/dL (50-199) 02/21/21 08:14 Procalcitonin < 0.05 ng/mL (<0.15) 02/19/21 22:26 Urine Color Yellow (Yellow) 02/20/21 04:31 Urine Turbidity Slightly-cloudy (Clear) 02/20/21 04:31 Urine pH 5.0 (5.0-7.0) 02/20/21 04:31 Ur Specific [place] 1.009 (1.003-1.030) 02/20/21 04:31 Urine Protein 100 mg/dl mg/dL (Negative) 02/20/21 04:31 Urine Glucose (UA) Neg mg/dL (Negative) 02/20/21 04:31 Urine Ketones Neg mg/dL (Negative) 02/20/21 04:31 Urine Blood Neg (Negative) 02/20/21 04:31 Urine Nitrite Neg (Negative) 02/20/21 04:31 Urine Bilirubin Neg (Negative) 02/20/21 04:31 Urine Urobilinogen < 2.0 mg/dL (<2.0) 02/20/21 04:31 Ur Leukocyte Esterase Neg (Negative) 02/20/21 04:31 Urine WBC (Auto) 1.0 /HPF (0.0-6.0) 02/20/21 04:31 Urine RBC (Auto) 2.0 /HPF (0.0-6.0) 02/20/21 04:31 U Epithel Cells (Auto) < 1.0 /HPF (0-13.0) 02/20/21 04:31 Urine Bacteria (Auto) 1+ /HPF (Negative) 02/20/21 04:31 Urine HCG, Qual Negative (Negative) 02/20/21 04:31 Coronavirus (PCR) Negative (Negative) 02/20/21 Unknown Amato/IV: Voiding Method Toilet Active Medications - Current Medications Current Medications: Generic Name Dose Route Start Last Admin Trade Name Freq PRN Reason Stop Dose Admin Acetaminophen 650 mg 02/20/21 02:04 02/27/21 01:30 Acetaminophen 325 Mg Tab PO 650 mg Q4H PRN Administration Pain MILD(1-3)/Fever >100.5/LOCO Albuterol 2.5 mg 02/20/21 07:39 Albuterol 2.5 Mg/3 Ml Nebu IH TIDRT PRN Shortness Of Breath Carvedilol 12.5 mg 02/22/21 22:00 03/01/21 10:25 Carvedilol 12.5 Mg Tab PO 12.5 mg BID VERONICA Administration Furosemide 40 mg 03/01/21 10:00 03/01/21 10:26 Furosemide 40 Mg Tab PO 40 mg QDAY VERONICA Administration Heparin Sodium (Porcine) 5,000 unit 02/21/21 14:00 03/01/21 14:31 Heparin 5,000 Unit/1 Ml Vial SUB-Q 5,000 unit Q8HR VERONICA Administration Hydralazine HCl 25 mg 02/20/21 22:00 03/01/21 14:31 Hydralazine 25 Mg Tab PO 25 mg Q8HR VERONICA Administration Ibuprofen 600 mg 02/20/21 20:17 03/01/21 05:30 Ibuprofen 600 Mg Tab PO 600 mg Q6H PRN Administration Pain , Severe (7-10) Magnesium Hydroxide 30 ml 02/20/21 02:04 02/22/21 13:47 Magnesium Hydroxide (Mom) Oral Liqd Udc PO 30 ml Q4H PRN Administration Constipation Morphine Sulfate 2 mg 02/20/21 02:04 Morphine 2 Mg/1 Ml Inj IV Q5MIN PRN Chest Pain unrelieved by NTG Ondansetron HCl 4 mg 02/20/21 02:04 Ondansetron 4 Mg/2 Ml Inj IV Q8H PRN Nausea And Vomiting Senna/Docusate Sodium 2 tab 02/22/21 17:43 02/24/21 21:20 Sennosides/Docusate Sodium 8.6/50 Mg Tab PO 2 tab Q12H PRN Administration Laxative Effect Sodium Chloride 10 ml 02/20/21 10:00 03/01/21 10:26 Sodium Chloride 0.9% 10 Ml Flush Syringe IV 10 ml BID VERONICA Administration Sodium Chloride 10 ml 02/20/21 02:04 Sodium Chloride 0.9% 10 Ml Flush Syringe IV PRN PRN LINE FLUSH Nutrition/Malnutrition Assess - Dietary Evaluation Nutrition/Malnutrition Findings: Nutrition Notes Start: 02/20/21 09:01 Freq: Status: Active Protocol: Document 02/27/21 13:07 MARGIE (Rec: 02/27/21 13:08 MARGIE [id number]) Nutrition Notes Need for Assessment generated from: LOS Initial or Follow up Brief Note Current Diagnosis Heart Failure Other Pertinent Diagnosis COVID PUI Current Diet Cardiac Subjective/Other Information Screen for LOS. Pt eating 100% of meals. Pt reports no questions or concerns about nutrition or her diet. Nutrition Intervention Revisit per MD consult or patient Sign Off request:
[2021-03-02 00:18] LABS: Blood Urea Nitrogen 16 mg/dL (7-17); Calcium 8.7 mg/dL (8.4-10.2); Hemolysis Index 0
[2021-03-02] MEDS: hydrALAZINE 25 MG TAB PO SCH ×2 (00:21→05:31)
[2021-03-02 00:44] LABS: BUN/Creatinine Ratio 23
[2021-03-02] MEDS: HEPARIN 5,000 UNIT/1 ML VIAL SUB-Q SCH (05:28)
[2021-03-02] MEDS: IBUPROFEN 600 MG TAB PO PRN (05:29)
--- NOTE | 2021-03-02 09:52 | Progress Note ---
Assessment and Plan 02/27/21 Tele reviewed: SR 86. No events overnight. HFpEF Continue Lasix 40mg PO Daily. Acute Resp Failure Pt is on NC 4lpm. She was not previously on home O2. Wean as tolerated. Pulmonology recs: OP PFT and Sleep study for STEPHEN. may need home O2 going forward. Elevated Ddimer Pt cannot undergo CTA or VQ scan due to body habitus and table weight limits. Further assessment per primary team. STEPHEN Continue CPAP QHS. CPAP is at bedside. Not previously on CPAP therapy or followed by pulmonology. Recommend OP f/u for management of suspected STEPHEN. HTN Optimize antihypertensive regimen discontinue Coreg, initiate Cardizem 60mg PO Daily, Hydralazine 25 TID. DVT Prophylaxis Continue Heparin subcutaneous inj for DVT prophylaxis. Pt appears to be nearing euvolemia. Currently in stable cardiac status. Recommend to continue Lasix 40mg PO Daily, Cardizem 60mg PO Daily, Hydralazine 25 TID. Nothing further to add from cardiology standpoint. Will follow on as needed basis. Pt should f/u with Dr Ballard, Cardiology within 1-2 weeks of discharge. This pt was seen in conjunction with Dr Ballard who agrees with this assessment and plan of care. - Patient Problems (1) Acute respiratory failure with hypoxia Current Visit: Yes Status: Acute (2) Pulmonary hypertension Current Visit: Yes Status: Chronic (3) Obesity hypoventilation syndrome Current Visit: Yes Status: Chronic (4) (HFpEF) heart failure with preserved ejection fraction Current Visit: Yes Status: Acute (5) STEPHEN (obstructive sleep apnea) Current Visit: Yes Status: Chronic (6) Severe obesity Current Visit: Yes Status: Chronic Subjective Date of service: 03/02/21 Principal diagnosis: Acute respiratory failure, Acute HFpEF, STEPHEN, morbid obesity Interval history: Pt resting comfortably in bed. Denies CP, CASIMIRO overnight. Currently on NC 4lpm via NC. Tele reviewed: SR 86. No events overnight. Objective Last Vital Signs Temp 98.0 F 03/02/21 05:17 Pulse 85 03/02/21 05:31 Resp 17 03/02/21 05:29 BP 105/52 03/02/21 05:31 Pulse Ox 99 03/02/21 05:17 - Physical Examination General: No Apparent Distress HEENT: Positive: EOMI, Normocephaly, Mucus Membranes Moist Neck: Positive: neck supple, trachea midline Cardiac: Positive: Reg Rate and Rhythm, S1/S2 Lungs: Positive: Normal Breath Sounds Neuro: Positive: Grossly Intact Abdomen: Positive: Unremarkable, Soft. Negative: Tender Skin: Negative: Rash, Wound Musculoskeletal: No Pain, Normal Range of Motion Extremities: Present: upper extr. pulses, lower extr. pulses. Absent: edema - Labs and Meds Comprehensive Metabolic Panel 03/01/21 Range/Units 23:20 Sodium 140 (137-145) mmol/L Potassium 4.6 (3.6-5.0) mmol/L Chloride 95.0 L (98-107) mmol/L Carbon Dioxide 43 H* (22-30) mmol/L BUN 16 (7-17) mg/dL Creatinine 0.7 (0.6-1.2) mg/dL Glucose 97 (65-100) mg/dL Calcium 8.7 (8.4-10.2) mg/dL - Imaging and Cardiology EKG: report reviewed, image reviewed Echo: report reviewed (Echo reviewed (02/20/21): EF 55-60%. Severe LVH. Flattened septum with RV volume and pressure overload. RV moderately dilated. RA mildly dilated. ) - Telemetry EKG Rhythm: Sinus Rhythm - EKG Sinus rhythms and dysrhythmias: sinus tachycardia
[2021-03-02] MEDS ORDERED: dilTIAZem 60 MG TAB PO SCH (12:00)
[2021-03-02] MEDS: FUROSEMIDE 40 MG TAB PO SCH (12:16)
[2021-03-02 12:33] VITALS: BP 141/86
--- NOTE | 2021-03-02 14:40 | Discharge Summary ---
Providers - Providers Date of Admission: 02/20/21 01:13 Date of discharge: 03/02/21 Attending physician: CHUY LU 02/20/21 02:04 Consult to Physician [CONS] Routine Comment: Consulting Provider: MARY DAS Physician Instructions: Reason For Exam: CHF Exac. 02/20/21 07:33 Consult to Physician [CONS] Routine Comment: Consulting Provider: LISA BERG Physician Instructions: Reason For Exam: PUI 02/20/21 10:12 Midline [Consult to PICC Line RN] [CONS] Urgent Reason For Exam: Access Needed Type Line:: Midline 02/26/21 14:24 Physical Therapy Evaluation and Treat [CONS] Routine Comment: Reason For Exam: Morbid obesity/DC needs Primary care physician: DOOR LINER HELPER Hospitalization Reason for admission: Acute hypoxic/hypercapnic respiratory failure/ morbid obesity, Condition: Fair Pertinent studies: Chest x-ray Echocardiogram Hospital course: 35-year-old -Slovak female patient with no significant past medical history morbid obesity with BMI of 79 was admitted through emergency room with worsening shortness of breath acute hypoxic respiratory failure requiring BiPAP patient was admitted as PUI, mitchell PCR test was negative isolation discontinued evaluated by ID pulmonary and cardiology medications were optimized echocardiogram EF 50 to 55% no evidence of congestive heart failure patient has possible obstructive sleep apnea obesity hypoventilation syndrome Home oxygen evaluation was done patient required 2 to 3 L of nasal cannula oxygen patient strongly advised to see electrical assembler upon discharge for sleep study and pulmonary function tests verbalized understanding ,social issues, no payer source. Case management assisted with home oxygen set up Today patient is comfortable no new complaints vital signs stable physical examination is unremarkable Ambulatory and tolerating oral nutrition Case management has set up home oxygen advised to follow-up with consultants per schedule stable at discharge. Discharge diagnosis; -COVID-19 negative -Acute hypoxic, hypercapnic respiratory failure -Morbid obesity BMI 79.2 -Obstructive sleep apnea -Obesity hypoventilation syndrome -Acute diastolic heart failure Disposition: [id number] HOME UNDER [facility] Final Discharge Diagnosis (Prints w/discharge instructions): -COVID-19 negative. -Acute hypoxic, hypercapnic respiratory failure. -Morbid obesity BMI 79.2. -Obstructive sleep apnea. -Obesity hypoventilation syndrome. -Acute diastolic heart failure. -COVID-19 negative. -Acute hypoxic, hypercapnic respiratory failure. -Morbid obesity BMI 79.2. -Obstructive sleep apnea. -Obesity hypoventilation syndrome. -Acute diastolic heart failure Time spent for discharge: 35 min Core Measure Documentation - Palliative Care Palliative Care/ Comfort Measures: Not Applicable - Core Measures Any of the following diagnoses?: none Exam - Constitutional Vitals: Temp Pulse Resp BP Pulse Ox 97.4 F L 78 20 141/86 99 03/02/21 12:06 03/02/21 12:06 03/02/21 12:06 03/02/21 12:06 03/02/21 12:06 General appearance: Present: no acute distress, well-nourished, obese (Morbidly obese) - EENT Eyes: Present: PERRL, EOM intact - Neck Neck: Present: supple, normal ROM - Respiratory Respiratory effort: normal Respiratory: bilateral: diminished, negative: rales, rhonchi, wheezing - Cardiovascular Rhythm: regular Heart Sounds: Present: S1 & S2 - Extremities Extremities: no ischemia, No edema - Abdominal General gastrointestinal: Present: soft, non-tender, non-distended, normal bowel sounds - Integumentary Integumentary: Present: clear, warm - Musculoskeletal Musculoskeletal: strength equal bilaterally - Psychiatric Psychiatric: appropriate mood/affect, cooperative - Neurologic Neurologic: moves all extremities Plan Activity: advance as tolerated Diet: other (cardiac diet) Durable Medical Equipment Needed Upon Discharge: Oxygen ( 2-3 lt [place] oxygen as needed) Additional Instructions: Advised to use nasal cannula oxygen 2 to 3 L as needed. Advised outpatient sleep study at electrical assembler[lung specialist] office. Advised exercise as tolerated, dietary modification and weight reduction when stable. f/u with international nurse Dr Ballard, in 1-2 weeks of discharge. Follow up with: PRIMARY MD MAE [Primary Care Provider] - 3-5 Days OSMIN BALLARD MD [Staff Physician] - 14 Days IRA RDZ MD [Staff Physician] - 7 Days Forms: Work/School Release Form Prescriptions: hydrALAZINE [Apresoline TAB] 25 mg PO Q8HR #90 tablet dilTIAZem CD [Cardizem Cd] 240 mg PO QDAY #30 cap Furosemide [Lasix TAB] 40 mg PO QDAY #30 tablet Ibuprofen [Motrin 600 MG tab] 600 mg PO Q6H PRN #20 tablet PRN Reason: Pain , Severe (7-10)
== END 2021-03-02 18:50 | disposition home health service (06) | DRG 291 ==
LOC: ED 20:44 → 3A 02-20 01:13
PROVIDERS: ADMIT Internal Medicine Geriatric Medicine; ATTEND Internal Medicine
PROC: 4A033R1 Measurement of Arterial Saturation, Peripheral, Percutaneous Approach (ICD-10-PCS; principal; 2021-02-21)
PROC: 5A09357 Assistance with Respiratory Ventilation, Less than 24 Consecutive Hours, Continuous Positive Airway Pressure (ICD-10-PCS; 2021-02-27)
DX: I11.0 Hypertensive heart disease with heart failure (principal); I50.31 Acute diastolic (congestive) heart failure; J96.01 Acute respiratory failure with hypoxia; J96.22 Acute and chronic respiratory failure with hypercapnia; Z68.45 Body mass index [BMI] 70 or greater, adult; I16.1 Hypertensive emergency; E66.2 Morbid (severe) obesity with alveolar hypoventilation; Z98.890 Other specified postprocedural states; Z20.822 Contact with and (suspected) exposure to COVID-19; Z79.899 Other long term (current) drug therapy; Z79.891 Long term (current) use of opiate analgesic; Z79.01 Long term (current) use of anticoagulants
CPT/HCPCS: 36415; 71045; 80048; 80053; 81001; 81025; 82465; 82728; 82803; 82947; 82962; 83036; 83615; 83735; 83880; 84145; 84484; 85007; 85025; 85379; 85610; 86140; 93005; 93306; 94640; 94660; 96374; G0378; J0360; J1100; J1644; J1650; J1940; U0003